=== PATIENT | male | born 1975 | race African-American/Black ===

== ENCOUNTER 2017-12-20 16:11 | Emergency (ER) | payer OTHER ==
[2017-12-20 16:24] VITALS: RESP 18
[2017-12-20] MEDS ORDERED: SODIUM CHLORIDE 0.9% 1,000 ML IV STA (16:32)
--- NOTE | 2017-12-20 16:41 | ED ---
Syncope HPI - General Chief Complaint: Syncope Stated Complaint: Syncope Time Seen by Provider: 12/20/17 16:28 Source: patient Mode of arrival: ambulatory Limitations: no limitations - History of Present Illness Initial Comments: 42-year-old male patient presented to emergency department today for evaluation after experiencing a syncopal episode at home. Patient states that last evening he was doing cocaine and marijuana which is not unusual for him. He states that he passed out and fell down. His friends were unable to wake him for approximately 2 hours. Patient states that today he has been feeling dizzy with standing. He states that he passed out again today for 1-2 minutes. Patient states he is having intermittent left-sided chest pressure. Patient states that he has been dizzy and seeing spots. He states that he has also had sweats with this. Patient is also reporting left wrist pain from the fall last evening and complaining of bilateral hand numbness and tingling. He denies any headache, blurred vision, double vision, nausea, vomiting, abdominal pain, constipation, diarrhea, difficulties with urination. - Related Data Previous Rx's Medication Instructions Recorded Methocarbamol [Robaxin] 1,000 mg PO TID PRN #15 tab 08/03/16 Naproxen 500 mg PO Q12HR #30 tab 08/03/16 Allergies Allergy/AdvReac Type Severity Reaction Status Date / Time No Known Allergies Allergy Verified 08/03/16 03:07 Review of Systems ROS Statement: Those systems with pertinent positive or pertinent negative responses have been documented in the HPI. ROS Other: All systems not noted in ROS Statement are negative. Past Medical History Past Medical History: No Reported History Additional Past Medical History / Comment(s): Tubes in ears as a child History of Any Multi-Drug Resistant Organisms: None Reported Past Surgical History: Ear Surgery Additional Past Surgical History / Comment(s): Tubes in bilat ears as a child Past Psychological History: No Psychological Hx Reported Smoking Status: Current every day smoker Past Alcohol Use History: Occasional Past Drug Use History: Cocaine, Marijuana General Exam Limitations: no limitations General appearance: alert, in no apparent distress, other (This is a well- developed, well-nourished adult male patient in no acute distress. Vital signs upon presentation are temperature 97.9F, pulse 67, respirations 18, blood pressure 121/66, pulse ox 100% on room air.) Eye exam: Present: normal appearance, PERRL, EOMI. Absent: scleral icterus, conjunctival injection, periorbital swelling ENT exam: Present: normal exam, normal oropharynx, mucous membranes moist Neck exam: Present: normal inspection, full ROM, other (Nontender, no step-off, no deformity to firm midline palpation of the posterior cervical spine. Full range of motion without pain or limitation.). Absent: tenderness, meningismus, lymphadenopathy Respiratory exam: Present: normal lung sounds bilaterally. Absent: respiratory distress, wheezes, rales, rhonchi, stridor Cardiovascular Exam: Present: regular rate, normal rhythm, normal heart sounds. Absent: systolic murmur, diastolic murmur, rubs, gallop, clicks GI/Abdominal exam: Present: soft, normal bowel sounds. Absent: distended, tenderness, guarding, rebound, rigid Extremities exam: Present: normal inspection, full ROM, tenderness (Patient is exhibiting tenderness over the dorsal aspect of the left wrist, there is no anatomical snuffbox tenderness.), normal capillary refill, other (Skin is otherwise pink, warm, and dry. Cap refills less than 3 seconds. Radial pulses are 2+ and equal bilaterally.). Absent: pedal edema, joint swelling, calf tenderness Neurological exam: Present: alert, oriented X3, CN II-XII intact, other ( Strength in all 4 extremities is 5/5.) Psychiatric exam: Present: normal affect, normal mood Skin exam: Present: warm, dry, intact, normal color. Absent: rash Course Vital Signs 12/20/17 12/20/17 12/20/17 16:21 17:10 18:40 Temperature 97.9 F 98.0 F Pulse Rate 67 61 58 L Respiratory 18 18 18 Rate Blood Pressure 121/66 117/71 118/66 O2 Sat by Pulse 100 99 100 Oximetry EKG Findings - EKG Comments: EKG Findings:: EKG obtained at 1648 shows sinus bradycardia with left axis deviation, incomplete right bundle branch block. Ventricular rate is 59, LA interval 166, QRS duration 118, QTC 416, QTC 411. Medical Decision Making - Medical Decision Making 42-year-old male patient presented to the emergency department today for evaluation of syncope 2, he also reported mild left-sided chest pressure and dizziness upon standing. Physical examination was unremarkable. Labs reviewed and did reveal mild hypoglycemia at 62. EKG was obtained and showed sinus bradycardia with left axis deviation and incomplete right bundle branch block. Drug screen was positive for cocaine, oxycodone, and marijuana. Chest x-ray showed no acute cardiopulmonary process. X-ray of the left hand showed no acute fractures or dislocations. Discussed the possibility of an occult fracture, suggested follow-up x-ray in 7-10 days if pain symptoms persist. I did discuss findings with the patient. After receiving IV fluids and drinking juice he is feeling somewhat better. Did discuss drug use vs Hypoglycemia vs dehydration as possible causes for his symptoms. Did discuss return parameters in detail. Discussed follow up with cardiology for EKG changes and chest discomfort. He verbalized understanding and agreed with this plan. - Lab Data Result diagrams: 12/20/17 17:00 12/20/17 17:00 Lab Results 12/20/17 12/20/17 12/20/17 Range/Units 16:55 17:00 17:00 WBC 9.8 (3.8-10.6) k/uL RBC 4.76 (4.30-5.90) m/uL Hgb 14.4 (13.0-17.5) gm/dL Hct 43.7 (39.0-53.0) % MCV 91.7 (80.0-100.0) fL MCH 30.1 (25.0-35.0) pg MCHC 32.9 (31.0-37.0) g/dL RDW 12.7 (11.5-15.5) % Plt Count 353 (150-450) k/uL Neutrophils % 72 % Lymphocytes % 17 % Monocytes % 6 % Eosinophils % 3 % Basophils % 0 % Neutrophils # 7.1 (1.3-7.7) k/uL Lymphocytes # 1.7 (1.0-4.8) k/uL Monocytes # 0.6 (0-1.0) k/uL Eosinophils # 0.3 (0-0.7) k/uL Basophils # 0.0 (0-0.2) k/uL PT (9.0-12.0) sec INR (<1.2) APTT (22.0-30.0) sec Sodium (137-145) mmol/L Potassium (3.5-5.1) mmol/L Chloride (98-107) mmol/L Carbon Dioxide (22-30) mmol/L Anion Gap mmol/L BUN (9-20) mg/dL Creatinine (0.66-1.25) mg/dL Est GFR (CKD-EPI)AfAm (>60 ml/min/1.73 sqM) Est GFR (CKD-EPI)NonAf (>60 ml/min/1.73 sqM) Glucose (74-99) mg/dL POC Glucose (mg/dL) 72 L (75-99) mg/dL POC Glu Bar Tacker ID Carlos Ceja Calcium (8.4-10.2) mg/dL Total Bilirubin (0.2-1.3) mg/dL AST (17-59) U/L ALT (21-72) U/L Alkaline Phosphatase (38-126) U/L Total Creatine Kinase 137 (55-170) U/L CK-MB (CK-2) 0.5 (0.0-2.4) ng/mL CK-MB (CK-2) Rel Index 0.4 Troponin I <0.012 (0.000-0.034) ng/mL Total Protein (6.3-8.2) g/dL Albumin (3.5-5.0) g/dL Urine Color Urine Appearance (Clear) Urine pH (5.0-8.0) Ur Specific [place] (1.001-1.035) Urine Protein (Negative) Urine Glucose (UA) (Negative) Urine Ketones (Negative) Urine Blood (Negative) Urine Nitrite (Negative) Urine Bilirubin (Negative) Urine Urobilinogen (<2.0) mg/dL Ur Leukocyte Esterase (Negative) Urine Opiates Screen (NotDetected) Ur Oxycodone Screen (NotDetected) Urine Methadone Screen (NotDetected) Ur Propoxyphene Screen (NotDetected) Ur Barbiturates Screen (NotDetected) U Tricyclic Antidepress (NotDetected) Ur Phencyclidine Scrn (NotDetected) Ur Amphetamines Screen (NotDetected) U Methamphetamines Scrn (NotDetected) U Benzodiazepines Scrn (NotDetected) Urine Cocaine Screen (NotDetected) U Marijuana (THC) Screen (NotDetected) 12/20/17 12/20/17 12/20/17 Range/Units 17:00 17:00 17:58 WBC (3.8-10.6) k/uL RBC (4.30-5.90) m/uL Hgb (13.0-17.5) gm/dL Hct (39.0-53.0) % MCV (80.0-100.0) fL MCH (25.0-35.0) pg MCHC (31.0-37.0) g/dL RDW (11.5-15.5) % Plt Count (150-450) k/uL Neutrophils % % Lymphocytes % % Monocytes % % Eosinophils % % Basophils % % Neutrophils # (1.3-7.7) k/uL Lymphocytes # (1.0-4.8) k/uL Monocytes # (0-1.0) k/uL Eosinophils # (0-0.7) k/uL Basophils # (0-0.2) k/uL PT 10.0 (9.0-12.0) sec INR 1.0 (<1.2) APTT 25.6 (22.0-30.0) sec Sodium 141 (137-145) mmol/L Potassium 4.0 (3.5-5.1) mmol/L Chloride 103 (98-107) mmol/L Carbon Dioxide 25 (22-30) mmol/L Anion Gap 13 mmol/L BUN 19 (9-20) mg/dL Creatinine 0.80 (0.66-1.25) mg/dL Est GFR (CKD-EPI)AfAm >90 (>60 ml/min/1.73 sqM) Est GFR (CKD-EPI)NonAf >90 (>60 ml/min/1.73 sqM) Glucose 67 L (74-99) mg/dL POC Glucose (mg/dL) (75-99) mg/dL POC Glu Bar Tacker ID Calcium 9.8 (8.4-10.2) mg/dL Total Bilirubin 0.8 (0.2-1.3) mg/dL AST 18 (17-59) U/L ALT 17 L (21-72) U/L Alkaline Phosphatase 85 (38-126) U/L Total Creatine Kinase (55-170) U/L CK-MB (CK-2) (0.0-2.4) ng/mL CK-MB (CK-2) Rel Index Troponin I (0.000-0.034) ng/mL Total Protein 7.4 (6.3-8.2) g/dL Albumin 4.4 (3.5-5.0) g/dL Urine Color Yellow Urine Appearance Clear (Clear) Urine pH 7.0 (5.0-8.0) Ur Specific [place] 1.014 (1.001-1.035) Urine Protein Negative (Negative) Urine Glucose (UA) Negative (Negative) Urine Ketones 3+ H (Negative) Urine Blood Negative (Negative) Urine Nitrite Negative (Negative) Urine Bilirubin Negative (Negative) Urine Urobilinogen <2.0 (<2.0) mg/dL Ur Leukocyte Esterase Negative (Negative) Urine Opiates Screen Not Detected (NotDetected) Ur Oxycodone Screen Detected H (NotDetected) Urine Methadone Screen Not Detected (NotDetected) Ur Propoxyphene Screen Not Detected (NotDetected) Ur Barbiturates Screen Not Detected (NotDetected) U Tricyclic Antidepress Not Detected (NotDetected) Ur Phencyclidine Scrn Not Detected (NotDetected) Ur Amphetamines Screen Not Detected (NotDetected) U Methamphetamines Scrn Not Detected (NotDetected) U Benzodiazepines Scrn Not Detected (NotDetected) Urine Cocaine Screen Detected H (NotDetected) U Marijuana (THC) Screen Detected H (NotDetected) Disposition Clinical Impression: Right bundle branch block, Syncope, Hypoglycemia Disposition: HOME SELF-CARE Condition: Good Instructions: Syncope (ED), Cocaine Abuse (ED), Non-diabetic Hypoglycemia (ED) Additional Instructions: Increase fluids. Follow-up with your primary care physician as well as integration analyst for further evaluation of EKG changes. Follow-up through primary care physician for recheck in 1-2 days. Return here immediately for any new, worsening, or concerning symptoms. Is patient prescribed a controlled substance at d/c from ED?: No Referrals: None,Stated [Primary Care Provider] - 1-2 days [facility] [Provider Group] - 1-2 days Time of Disposition: 18:39
[2017-12-20 16:57] LABS: Glucose,Whole Blood 72 mg/dL (75-99)
[2017-12-20 17:19] LABS: Basophils % (A) 0 %; Eosinophils # (A) 0.3 k/uL (0-0.7); Eosinophils % (A) 3 %; HCT 43.7 % (39.0-53.0); HGB 14.4 gm/dL (13.0-17.5); Lymphocytes # (A) 1.7 k/uL (1.0-4.8); Lymphocytes % (A) 17 %; MCH 30.1 pg (25.0-35.0); MCHC 32.9 g/dL (31.0-37.0); MCV 91.7 fL (80.0-100.0); Mean Platelet Volume 6.8; Monocytes # (A) 0.6 k/uL (0-1.0); Monocytes % (A) 6 %; Neutrophils # (A) 7.1 k/uL (1.3-7.7); Neutrophils % (A) 72 %; Platelet Count 353 k/uL (150-450); RBC 4.76 m/uL (4.30-5.90); RDW 12.7 % (11.5-15.5); WBC 9.8 k/uL (3.8-10.6)
[2017-12-20 17:28] LABS: ALT 17 U/L (21-72); AST 18 U/L (17-59); Albumin 4.4 g/dL (3.5-5.0); Alkaline Phosphatase 85 U/L (38-126); Anion Gap 13 mmol/L; Blood Urea Nitrogen 19 mg/dL (9-20); Calcium 9.8 mg/dL (8.4-10.2); Carbon Dioxide 25 mmol/L (22-30); Chloride 103 mmol/L (98-107); Glucose 67 mg/dL (74-99); Sodium 141 mmol/L (137-145); Total Bilirubin 0.8 mg/dL (0.2-1.3); Total Protein 7.4 g/dL (6.3-8.2)
[2017-12-20 17:30] LABS: Partial Thromboplastin Time 25.6 sec (22.0-30.0)
[2017-12-20 17:32] LABS: Creatine Kinase 137 U/L (55-170)
--- NOTE | 2017-12-20 17:34 | XR ---
EXAMINATION TYPE: XR chest 2V DATE OF EXAM: 12/20/2017 COMPARISON: 08/03/2016 HISTORY: 42-year-old male with syncope and fall TECHNIQUE: PA and lateral views FINDINGS: The cardiomediastinal silhouette, aorta, and pulmonary vasculature are within normal limits. There is a small pulmonary nodule at the left midlung, suspected to represent a nipple shadow when correlatin g with the lateral view. Three-month follow-up exam recommended utilizing nipple markers as a precaut ionary measure. Otherwise, lungs and pleural spaces are clear. IMPRESSION: 1. No acute cardiopulmonary process. 2. Suspected nipple shadow at the left mid lung rather than pulmonary nodule. Three-month follow-up r ecommended utilizing nipple markers as a precautionary measure.
--- NOTE | 2017-12-20 17:36 | XR ---
EXAMINATION TYPE: XR wrist complete LT DATE OF EXAM: 12/20/2017 COMPARISON: NONE HISTORY: 42-year-old male with pain after fall TECHNIQUE: 4 views FINDINGS: The radiocarpal and distal radioulnar joints as well as the midcarpal compartment appear intact. No a cute fracture, subluxation, or dislocation seen. IMPRESSION: No acute osseous abnormality seen.
[2017-12-20 17:45] LABS: Creatine Kinase MB 0.5 ng/mL (0.0-2.4); Troponin I <0.012 ng/mL (0.000-0.034)
[2017-12-20 18:05] LABS: Appearance,Urine Clear (Clear); Bilirubin,Urine Negative (Negative); Blood,Urine Negative (Negative); Color,Urine Yellow; Glucose,Urine (UA) Negative (Negative); Ketones,Urine 3+ (Negative); Leukocyte Esterase,Urine Negative (Negative); Nitrite,Urine Negative (Negative); Protein,Urine Negative (Negative); Specific Gravity,Urine 1.014 (1.001-1.035); Urobilinogen,Urine <2.0 mg/dL (<2.0)
[2017-12-20 18:15] LABS: Amphetamine Screen,Urine Not Detected (NotDetected); Barbiturate Screen,Urine Not Detected (NotDetected); Benzodiazepines Screen,Urine Not Detected (NotDetected); Cocaine Screen,Urine Detected (NotDetected); Methadone Screen, Urine Not Detected (NotDetected); Opiate Screen,Urine Not Detected (NotDetected); Oxycodone Screen, Urine Detected (NotDetected); Phencyclidine Screen,Urine Not Detected (NotDetected); Tricyclic Antidepressant,Urine Not Detected (NotDetected); Urn Cannabinoid Scrn Detected (NotDetected)
[2017-12-20 18:41] VITALS: BP 118/66; PULSE 58; TEMP 98
== END 2017-12-20 18:55 | disposition home or self-care (01) ==
LOC: EC 16:11
DX: I45.10 Unspecified right bundle-branch block (principal); R55 Syncope and collapse; E16.2 Hypoglycemia, unspecified; F17.200 Nicotine dependence, unspecified, uncomplicated
CPT/HCPCS: 36415; 71046; 80053; 80306; 81003; 82550; 82553; 84484; 85025; 85610; 85730; 93005; 96360; 99284

== ENCOUNTER 2018-03-21 17:03 | Emergency (ER) | payer OTHER ==
[2018-03-21 17:07] VITALS: BP 114/75; PULSE 94; RESP 20; TEMP 98.6
--- NOTE | 2018-03-21 17:21 | ED ---
General Adult HPI - General Chief complaint: Skin/Abscess/Foreign Body Stated complaint: Bumps on Hands Time Seen by Provider: 03/21/18 17:14 Source: patient Mode of arrival: ambulatory Limitations: no limitations - History of Present Illness Initial comments: This is a 42yo male with no PMH who presents today for CC of "my boss made me come in because she thought I had bumps on my hands". 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 Pt denies bumps on his hands, and only presents to the ER today so he can get a note clearing him to return back to work tonnight. Pt has no complaints. VS stable upon presentation. Patient denies any recent rash, STD, mouth lesions, itching, fever , chills, shortness of breath, chest pain, back pain, abdominal pain, nausea or vomiting, numbness or tingling, dysuria or hematuria, constipation or diarrhea, headaches or visual changes, or any other complaints. - Related Data Previous Rx's Medication Instructions Recorded Methocarbamol [Robaxin] 1,000 mg PO TID PRN #15 tab 08/03/16 Naproxen 500 mg PO Q12HR #30 tab 08/03/16 Allergies Allergy/AdvReac Type Severity Reaction Status Date / Time No Known Allergies Allergy Verified 03/21/18 17:07 Review of Systems ROS Statement: Those systems with pertinent positive or pertinent negative responses have been documented in the HPI. ROS Other: All systems not noted in ROS Statement are negative. Constitutional: Denies: fever, chills Eyes: Denies: eye pain ENT: Denies: ear pain Respiratory: Denies: cough, dyspnea Cardiovascular: Denies: chest pain, palpitations Gastrointestinal: Denies: abdominal pain, nausea, vomiting, diarrhea, constipation Genitourinary: Denies: urgency, dysuria, frequency, hematuria Musculoskeletal: Denies: back pain Skin: Reports: as per HPI. Denies: rash, lesions Neurological: Denies: headache, weakness, numbness, paresthesias, confusion Past Medical History Past Medical History: No Reported History Additional Past Medical History / Comment(s): Tubes in ears as a child History of Any Multi-Drug Resistant Organisms: None Reported Past Surgical History: Ear Surgery Additional Past Surgical History / Comment(s): Tubes in bilat ears as a child Past Psychological History: No Psychological Hx Reported Smoking Status: Current every day smoker Past Alcohol Use History: Occasional Past Drug Use History: Cocaine, Marijuana General Exam - General Exam Comments Initial Comments: General: The patient is awake and alert, in no distress, and does not appear acutely ill. Eye: Pupils are equal, round and reactive to light, extra-ocular movements are intact. No nystagmus. There is normal conjunctiva bilaterally. No signs of icterus. Ears, nose, mouth and throat: There are moist mucous membranes and no oral lesions. Neck: The neck is supple, there is no tenderness or JVD. Cardiovascular: There is a regular rate and rhythm. No murmur, rub or gallop is appreciated. Respiratory: Lungs are clear to auscultation, respirations are non-labored, breath sounds are equal. No wheezes, stridor, rales, or rhonchi. Neurological: A&O x 3. CN II-XII intact, There are no obvious motor or sensory deficits. Coordination appears grossly intact. Speech is normal. Skin: Skin is warm and dry and no rashes or lesions are noted. Some areas of dry skin on hands b/l. No linear burrows or erythema or other lesions noted. No lesions on hands feet or oral mucosa. Psychiatric: Cooperative, appropriate mood & affect, normal judgment. Limitations: no limitations Course Vital Signs 03/21/18 17:05 Temperature 98.6 F Pulse Rate 94 Respiratory 20 Rate Blood Pressure 114/75 O2 Sat by Pulse 98 Oximetry Medical Decision Making - Medical Decision Making 42 yo male sent by work for clearance by work for "bumps on hands" pt does not note any bumps. Exam reveals dry skin. Given no hx of itching or and vesicular/ burrowing lesions on hands or in the webs of fingers I do not feel this is scabies. 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 Pt was give a clearance note for work and case was discussed with Dr. Monge. Pt was discharged in stable condition Disposition Clinical Impression: Dry skin Disposition: HOME SELF-CARE Condition: Good Additional Instructions: Please return to emergency room if the symptoms increase or worsen or for any other concerns. Is patient prescribed a controlled substance at d/c from ED?: No Referrals: None,Stated [Primary Care Provider] - 1-2 days Time of Disposition: 17:21
== END 2018-03-21 18:18 | disposition home or self-care (01) ==
LOC: EC 17:03
DX: L85.3 Xerosis cutis (principal); F17.200 Nicotine dependence, unspecified, uncomplicated
CPT/HCPCS: 99283

== ENCOUNTER 2018-08-26 10:56 | Emergency (ER) | payer OTHER ==
[2018-08-26 11:05] VITALS: RESP 18
[2018-08-26] MEDS ORDERED: SODIUM CHLORIDE 0.9% 1,000 ML IV STA (11:22)
--- NOTE | 2018-08-26 11:38 | ED ---
General Adult HPI - General Chief complaint: Chest Pain Stated complaint: FLU LIKE SYMPTOMS Time Seen by Provider: 08/26/18 11:16 Source: patient, RN notes reviewed Mode of arrival: ambulatory Limitations: no limitations - History of Present Illness Initial comments: Patient 43-year-old male presenting to the emergency room today with a chief complaint of cough congestion over the last 4 days. He does admit that he went back to work today and he was working he felt a little dizzy. He states is also spots in his vision. States his hands went numb. He did sit down again feeling better. Got back up to try to work again still had the numbness in his hands and felt dizzy so decided to come here to the emergency room. He does admit that he's had cough congestion for the last 4 days had some sputum production as been yellow in color. Patient admits to pain in his chest with cough. No pain at rest. Patient does admit to feeling chills and feeling hot and cold. He denies any other complaints. Patient denies any recent shortness of breath, chest pain, back pain, numbness or tingling, headaches or visual changes, or any other complaints. - Related Data Home Medications Medication Instructions Recorded Confirmed Ibuprofen [Motrin Ib] 600 mg PO Q6H PRN 08/26/18 08/26/18 guaiFENesin [Mucinex] 600 mg PO DAILY 08/26/18 08/26/18 Allergies Allergy/AdvReac Type Severity Reaction Status Date / Time No Known Allergies Allergy Verified 08/26/18 11:14 Review of Systems ROS Statement: Those systems with pertinent positive or pertinent negative responses have been documented in the HPI. ROS Other: All systems not noted in ROS Statement are negative. Past Medical History Past Medical History: No Reported History Additional Past Medical History / Comment(s): Tubes in ears as a child History of Any Multi-Drug Resistant Organisms: None Reported Past Surgical History: Ear Surgery Additional Past Surgical History / Comment(s): Tubes in bilat ears as a child Past Psychological History: No Psychological Hx Reported Smoking Status: Current every day smoker Past Alcohol Use History: Occasional Past Drug Use History: Cocaine, Marijuana General Exam - General Exam Comments Initial Comments: General: The patient is awake and alert, in no distress, and does not appear acutely ill. Eye: Pupils are equal, round and reactive to light, extra-ocular movements are intact. No nystagmus. There is normal conjunctiva bilaterally. No signs of icterus. Ears, nose, mouth and throat: There are moist mucous membranes and no oral lesions. Neck: The neck is supple, there is no tenderness or JVD. Cardiovascular: There is a regular rate and rhythm. No murmur, rub or gallop is appreciated. Respiratory: Lungs are clear to auscultation, respirations are non-labored, breath sounds are equal. No wheezes, stridor, rales, or rhonchi. Gastrointestinal: Soft nontender. Musculoskeletal: Normal ROM, no tenderness. Strength 5/5. Sensation intact. Radial pulses equal bilaterally 2+. Neurological: A&O x 3. CN II-XII intact, There are no obvious motor or sensory deficits. Coordination appears grossly intact. Speech is normal. Skin: Skin is warm and dry and no rashes or lesions are noted. Psychiatric: Cooperative, appropriate mood & affect, normal judgment. Limitations: no limitations Course Vital Signs 08/26/18 08/26/18 11:02 12:13 Temperature 97.8 F Pulse Rate 66 Pulse Rate [ 84 Supine Apical] Respiratory 18 Rate Blood Pressure 116/76 O2 Sat by Pulse 98 Oximetry EKG Findings - EKG Comments: EKG Findings:: EKG performed at 1145: Shows sinus bradycardia at 51 bpm. AR interval 162. QRS 114. QT/QTc 420/387. No acute ST change. Medical Decision Making - Medical Decision Making Patient reexamined at this time shows no signs of distress. He was given a bolus in the emergency room states he is feeling better. He has had cough congestion for the past 4 days. He was at work and he felt a little lightheaded and has some numbness and tingling into the hands bilaterally. Patient when he sat down states that he felt better but that happen once again. Patient's been a symptomatically in the emergency room and is feeling better. His chest x-rays negative for any sign of pneumonia or any other acute abnormality. Patient's labs been reviewed unremarkable. Patient will be discharged home advised to increase his oral fluids. Advised to use Tylenol/ ibuprofen for body aches. Was discussed about influenza versus other viral upper respiratory infection. Advised follow-up family doctor return if symptoms increase or worsen. - Lab Data Result diagrams: 08/26/18 12:10 08/26/18 12:10 Lab Results 08/26/18 08/26/18 08/26/18 Range/Units 12:10 12:10 12:10 WBC 8.4 (3.8-10.6) k/uL RBC 4.51 (4.30-5.90) m/uL Hgb 14.0 (13.0-17.5) gm/dL Hct 41.9 (39.0-53.0) % MCV 93.0 (80.0-100.0) fL MCH 31.0 (25.0-35.0) pg MCHC 33.3 (31.0-37.0) g/dL RDW 12.9 (11.5-15.5) % Plt Count 291 (150-450) k/uL Neutrophils % 73 % Lymphocytes % 16 % Monocytes % 7 % Eosinophils % 1 % Basophils % 0 % Neutrophils # 6.1 (1.3-7.7) k/uL Lymphocytes # 1.4 (1.0-4.8) k/uL Monocytes # 0.5 (0-1.0) k/uL Eosinophils # 0.1 (0-0.7) k/uL Basophils # 0.0 (0-0.2) k/uL PT (9.0-12.0) sec INR (<1.2) APTT (22.0-30.0) sec Sodium 139 (137-145) mmol/L Potassium 4.4 (3.5-5.1) mmol/L Chloride 107 (98-107) mmol/L Carbon Dioxide 27 (22-30) mmol/L Anion Gap 5 mmol/L BUN 20 (9-20) mg/dL Creatinine 0.84 (0.66-1.25) mg/dL Est GFR (CKD-EPI)AfAm >90 (>60 ml/min/1.73 sqM) Est GFR (CKD-EPI)NonAf >90 (>60 ml/min/1.73 sqM) Glucose 104 H (74-99) mg/dL Calcium 9.4 (8.4-10.2) mg/dL Total Bilirubin 0.3 (0.2-1.3) mg/dL AST 18 (17-59) U/L ALT 25 (21-72) U/L Alkaline Phosphatase 93 (38-126) U/L Total Creatine Kinase 65 (55-170) U/L CK-MB (CK-2) <0.2 (0.0-2.4) ng/mL CK-MB (CK-2) Rel Index Troponin I <0.012 (0.000-0.034) ng/mL Total Protein 7.4 (6.3-8.2) g/dL Albumin 4.0 (3.5-5.0) g/dL 08/26/18 Range/Units 12:10 WBC (3.8-10.6) k/uL RBC (4.30-5.90) m/uL Hgb (13.0-17.5) gm/dL Hct (39.0-53.0) % MCV (80.0-100.0) fL MCH (25.0-35.0) pg MCHC (31.0-37.0) g/dL RDW (11.5-15.5) % Plt Count (150-450) k/uL Neutrophils % % Lymphocytes % % Monocytes % % Eosinophils % % Basophils % % Neutrophils # (1.3-7.7) k/uL Lymphocytes # (1.0-4.8) k/uL Monocytes # (0-1.0) k/uL Eosinophils # (0-0.7) k/uL Basophils # (0-0.2) k/uL PT 9.5 (9.0-12.0) sec INR 0.9 (<1.2) APTT 26.3 (22.0-30.0) sec Sodium (137-145) mmol/L Potassium (3.5-5.1) mmol/L Chloride (98-107) mmol/L Carbon Dioxide (22-30) mmol/L Anion Gap mmol/L BUN (9-20) mg/dL Creatinine (0.66-1.25) mg/dL Est GFR (CKD-EPI)AfAm (>60 ml/min/1.73 sqM) Est GFR (CKD-EPI)NonAf (>60 ml/min/1.73 sqM) Glucose (74-99) mg/dL Calcium (8.4-10.2) mg/dL Total Bilirubin (0.2-1.3) mg/dL AST (17-59) U/L ALT (21-72) U/L Alkaline Phosphatase (38-126) U/L Total Creatine Kinase (55-170) U/L CK-MB (CK-2) (0.0-2.4) ng/mL CK-MB (CK-2) Rel Index Troponin I (0.000-0.034) ng/mL Total Protein (6.3-8.2) g/dL Albumin (3.5-5.0) g/dL Disposition Clinical Impression: Upper respiratory infection, Dizziness Disposition: HOME SELF-CARE Condition: Good Instructions: Dizziness (ED) Additional Instructions: Please use medication as discussed. Please follow-up with family doctor in the next 2 days of symptoms have not improved. Please return to emergency room if the symptoms increase or worsen or for any other concerns. Is patient prescribed a controlled substance at d/c from ED?: No Referrals: None,Stated [Primary Care Provider] - 1-2 days Time of Disposition: 13:39
--- NOTE | 2018-08-26 12:24 | XR ---
EXAMINATION TYPE: XR chest 2V DATE OF EXAM: 08/26/2018 COMPARISON: 12/20/2017 HISTORY: 43-year-old male with cough TECHNIQUE: PA and lateral views FINDINGS: Heart normal size. Aorta and pulmonary vasculature within normal limits. No consolidation or pleural effusion seen. Previously seen left midlung nodularity no longer appreciated. IMPRESSION: No acute cardiopulmonary process.
[2018-08-26 12:33] LABS: Basophils % (A) 0 %; Eosinophils # (A) 0.1 k/uL (0-0.7); Eosinophils % (A) 1 %; HCT 41.9 % (39.0-53.0); Lymphocytes # (A) 1.4 k/uL (1.0-4.8); Lymphocytes % (A) 16 %; MCHC 33.3 g/dL (31.0-37.0); Mean Platelet Volume 6.4; Monocytes # (A) 0.5 k/uL (0-1.0); Monocytes % (A) 7 %; Neutrophils # (A) 6.1 k/uL (1.3-7.7); Neutrophils % (A) 73 %; Platelet Count 291 k/uL (150-450); RBC 4.51 m/uL (4.30-5.90); RDW 12.9 % (11.5-15.5); WBC 8.4 k/uL (3.8-10.6)
[2018-08-26 12:35] LABS: ALT 25 U/L (21-72); AST 18 U/L (17-59); Alkaline Phosphatase 93 U/L (38-126); Anion Gap 5 mmol/L; Blood Urea Nitrogen 20 mg/dL (9-20); Calcium 9.4 mg/dL (8.4-10.2); Carbon Dioxide 27 mmol/L (22-30); Chloride 107 mmol/L (98-107); Glucose 104 mg/dL (74-99); Potassium 4.4 mmol/L (3.5-5.1); Sodium 139 mmol/L (137-145); Total Bilirubin 0.3 mg/dL (0.2-1.3); Total Protein 7.4 g/dL (6.3-8.2)
[2018-08-26 12:39] LABS: INR 0.9 (<1.2); Partial Thromboplastin Time 26.3 sec (22.0-30.0); Prothrombin Time 9.5 sec (9.0-12.0)
[2018-08-26 12:45] LABS: Creatine Kinase 65 U/L (55-170)
[2018-08-26 12:58] LABS: Creatine Kinase MB <0.2 ng/mL (0.0-2.4); Troponin I <0.012 ng/mL (0.000-0.034)
[2018-08-26 14:02] VITALS: BP 124/87; PULSE 67; TEMP 97.1
== END 2018-08-26 13:59 | disposition home or self-care (01) ==
LOC: EC 10:56
DX: J06.9 Acute upper respiratory infection, unspecified (principal); R42 Dizziness and giddiness; R20.0 Anesthesia of skin; F17.200 Nicotine dependence, unspecified, uncomplicated; Z79.899 Other long term (current) drug therapy
CPT/HCPCS: 36415; 71046; 80053; 82550; 82553; 84484; 85025; 85610; 85730; 93005; 96360; 96361; 99285

== ENCOUNTER 2018-11-17 10:20 | Emergency (ER) | payer OTHER ==
[2018-11-17 10:24] VITALS: RESP 16
[2018-11-17] MEDS ORDERED: KETOROLAC 30 MG/ML 1 ML VIAL IVP STA (10:27)
[2018-11-17] MEDS ORDERED: ONDANSETRON 4 MG/2 ML VIAL IVP STA (10:27)
[2018-11-17] MEDS ORDERED: SODIUM CHLORIDE 0.9% 1,000 ML IV STA ×2 (10:27)
[2018-11-17] MEDS ORDERED: MORPHINE SULFATE 4 MG/ML SYRINGE IVP STA (10:33)
--- NOTE | 2018-11-17 10:37 | ED ---
General Adult HPI - General Chief complaint: Urogenital Stated complaint: Back pain/blood in urine Time Seen by Provider: 11/17/18 10:26 Source: patient, RN notes reviewed, old records reviewed Mode of arrival: ambulatory Limitations: no limitations - History of Present Illness Initial comments: this Patient is a 43-year-old male who presents emergency Department today with complaints of right-sided flank and lower back pain for the past 3 days. Maranda ent reports that today he noticed he started to urinate dark red blood. He reports it's painful and it seems difficult for him to urinate. Patient states that he has had no fevers or chills. He denies any chest pain shortness of breath, nausea or vomiting. He states he's had normal stools. - Related Data Previous Rx's Medication Instructions Recorded Cyclobenzaprine [Flexeril] 10 mg PO TID #15 tab 11/17/18 Ibuprofen [Motrin] 600 mg PO Q6HR PRN #20 tab 11/17/18 Allergies Allergy/AdvReac Type Severity Reaction Status Date / Time No Known Allergies Allergy Verified 11/17/18 10:41 Review of Systems ROS Statement: Those systems with pertinent positive or pertinent negative responses have been documented in the HPI. ROS Other: All systems not noted in ROS Statement are negative. Past Medical History Past Medical History: No Reported History Additional Past Medical History / Comment(s): Tubes in ears as a child History of Any Multi-Drug Resistant Organisms: None Reported Past Surgical History: Ear Surgery Additional Past Surgical History / Comment(s): Tubes in bilat ears as a child Past Psychological History: No Psychological Hx Reported Smoking Status: Current every day smoker Past Alcohol Use History: Occasional Past Drug Use History: Marijuana General Exam - General Exam Comments Initial Comments: 43-year-old male. Alert and oriented. No distress. General: Well appearing, well nourished, in no distress. Oriented x 3, normal mood and affect . Ambulating without difficulty. Skin: Good turgor, no rash, unusual bruising or prominent lesions Hair: Normal texture and distribution. HEENT: Head: Normocephalic, atraumatic, no visible or palpable masses, depressions, or scaring. Eyes: Visual acuity intact, conjunctiva clear, sclera non-icteric, EOM intact, PERRL. Ears: EACs clear, TMs translucent & cone of light visualized. hearing intact. Nose: No external lesions, mucosa non-inflamed, septum and turbinates normal Mouth: dry mucous membranes. Teeth/Gums: No obvious caries or periodontal disease. No gingival inflammation or significant resorption. Pharynx: Mucosa non-inflamed, no tonsillar hypertrophy or exudate Neck: Supple, without lesions, bruits, or adenopathy, thyroid non-enlarged and non-tender Heart: No cardiomegaly or thrills; regular rate and rhythm, no murmur or gallop Lungs: Clear to auscultation and percussion Abdomen: Bowel sounds normal, no tenderness, organomegaly, masses, or hernia Back: Spine normal without deformity or tenderness, right CVA tenderness Extremities: No amputations or deformities, cyanosis, edema or varicosities, peripheral pulses intact Musculoskeletal: Normal gait and station. No misalignment, asymmetry, crepitation, defects, tenderness, masses, effusions, decreased range of motion, instability, atrophy or abnormal strength or tone in the head, neck, spine, ribs, pelvis or extremities. Neurologic: CN 2-12 normal. Sensation to pain, touch, and proprioception normal. DTRs normal in upper and lower extremities. No pathologic reflexes. Psychiatric: Oriented X3, intact recent and remote memory, judgment and insight, normal mood and affect. Limitations: no limitations Course Vital Signs 11/17/18 10:21 Temperature 97.6 F Pulse Rate 76 Respiratory 16 Rate Blood Pressure 105/72 O2 Sat by Pulse 98 Oximetry Medical Decision Making - Medical Decision Making grade 3-year-old male presents emergency department stay 3 days of lower back pain and 1 day of hematuria. Patient was given IV fluids labwork obtained. Patient had some right CVA tenderness on exam. Patient is given IV fluids and pain medication. Patient's labwork was reviewed and unremarkable. Urinalysis is no blood. Patient CT of the abdomen pelvis without contrast was completed. Negative for any acute process. Discusses time he may pass a kidney stone. Patient will be discharged at this time with prescriptions for Motrin Tylenol for pain. Discharged with a short course of muscle relaxers as well for the lower back pain. Discussed the Patient was discussed nature as well. Patient agrees to treatment plan will comply. - Lab Data Result diagrams: 11/17/18 10:57 11/17/18 10:57 Lab Results 11/17/18 11/17/1811/17/19 Range/Units 10:57 10:57 10:57 WBC 7.4 (3.8-10.6) k/uL RBC 4.50 (4.30-5.90) m/uL Hgb 13.9 (13.0-17.5) gm/dL Hct 42.6 (39.0-53.0) % MCV 94.6 (80.0-100.0) fL MCH 30.8 (25.0-35.0) pg MCHC 32.6 (31.0-37.0) g/dL RDW 13.3 (11.5-15.5) % Plt Count 354 (150-450) k/uL Neutrophils % 74 % Lymphocytes % 18 % Monocytes % 5 % Eosinophils % 2 % Basophils % 0 % Neutrophils # 5.5 (1.3-7.7) k/uL Lymphocytes # 1.3 (1.0-4.8) k/uL Monocytes # 0.3 (0-1.0) k/uL Eosinophils # 0.1 (0-0.7) k/uL Basophils # 0.0 (0-0.2) k/uL PT 9.5 (9.0-12.0) sec INR 0.9 (<1.2) APTT 25.0 (22.0-30.0) sec Sodium 138 (137-145) mmol/L Potassium 4.2 (3.5-5.1) mmol/L Chloride 104 (98-107) mmol/L Carbon Dioxide 27 (22-30) mmol/L Anion Gap 7 mmol/L BUN 19 (9-20) mg/dL Creatinine 0.86 (0.66-1.25) mg/dL Est GFR (CKD-EPI)AfAm >90 (>60 ml/min/1.73 sqM) Est GFR (CKD-EPI)NonAf >90 (>60 ml/min/1.73 sqM) Glucose 88 (74-99) mg/dL Calcium 9.8 (8.4-10.2) mg/dL Total Bilirubin 0.5 (0.2-1.3) mg/dL AST 20 (17-59) U/L ALT 23 (21-72) U/L Alkaline Phosphatase 75 (38-126) U/L Total Protein 7.5 (6.3-8.2) g/dL Albumin 4.3 (3.5-5.0) g/dL Amylase 49 (30-110) U/L Lipase 95 (23-300) U/L Urine Color Urine Appearance (Clear) Urine pH (5.0-8.0) Ur Specific [place] (1.001-1.035) Urine Protein (Negative) Urine Glucose (UA) (Negative) Urine Ketones (Negative) Urine Blood (Negative) Urine Nitrite (Negative) Urine Bilirubin (Negative) Urine Urobilinogen (<2.0) mg/dL Ur Leukocyte Esterase (Negative) 11/17/18 Range/Units 11:23 WBC (3.8-10.6) k/uL RBC (4.30-5.90) m/uL Hgb (13.0-17.5) gm/dL Hct (39.0-53.0) % MCV (80.0-100.0) fL MCH (25.0-35.0) pg MCHC (31.0-37.0) g/dL RDW (11.5-15.5) % Plt Count (150-450) k/uL Neutrophils % % Lymphocytes % % Monocytes % % Eosinophils % % Basophils % % Neutrophils # (1.3-7.7) k/uL Lymphocytes # (1.0-4.8) k/uL Monocytes # (0-1.0) k/uL Eosinophils # (0-0.7) k/uL Basophils # (0-0.2) k/uL PT (9.0-12.0) sec INR (<1.2) APTT (22.0-30.0) sec Sodium (137-145) mmol/L Potassium (3.5-5.1) mmol/L Chloride (98-107) mmol/L Carbon Dioxide (22-30) mmol/L Anion Gap mmol/L BUN (9-20) mg/dL Creatinine (0.66-1.25) mg/dL Est GFR (CKD-EPI)AfAm (>60 ml/min/1.73 sqM) Est GFR (CKD-EPI)NonAf (>60 ml/min/1.73 sqM) Glucose (74-99) mg/dL Calcium (8.4-10.2) mg/dL Total Bilirubin (0.2-1.3) mg/dL AST (17-59) U/L ALT (21-72) U/L Alkaline Phosphatase (38-126) U/L Total Protein (6.3-8.2) g/dL Albumin (3.5-5.0) g/dL Amylase (30-110) U/L Lipase (23-300) U/L Urine Color Yellow Urine Appearance Clear (Clear) Urine pH 7.0 (5.0-8.0) Ur Specific [place] 1.012 (1.001-1.035) Urine Protein Negative (Negative) Urine Glucose (UA) Negative (Negative) Urine Ketones Negative (Negative) Urine Blood Negative (Negative) Urine Nitrite Negative (Negative) Urine Bilirubin Negative (Negative) Urine Urobilinogen <2.0 (<2.0) mg/dL Ur Leukocyte Esterase Negative (Negative) - Radiology Data Radiology results: report reviewed CT is negative for any acuteNo acute process to account for patient's symptoms. Disposition Clinical Impression: Lower back pain Disposition: HOME SELF-CARE Condition: Good Instructions (If sedation given, give patient instructions): Low Back Strain (ED) Additional Instructions: Patient advised to close follow-up with primary care provider. Motrin Tylenol for pain. Return to emergency department if any alarming signs or symptoms occur. Prescriptions: Cyclobenzaprine [Flexeril] 10 mg PO TID #15 tab Ibuprofen [Motrin] 600 mg PO Q6HR PRN #20 tab PRN Reason: Pain Is patient prescribed a controlled substance at d/c from ED?: No Referrals: None,Stated [Primary Care Provider] - 1-2 days Time of Disposition: 11:55
[2018-11-17 11:19] LABS: Basophils % (A) 0 %; Eosinophils # (A) 0.1 k/uL (0-0.7); Eosinophils % (A) 2 %; HCT 42.6 % (39.0-53.0); HGB 13.9 gm/dL (13.0-17.5); Lymphocytes # (A) 1.3 k/uL (1.0-4.8); Lymphocytes % (A) 18 %; MCH 30.8 pg (25.0-35.0); MCHC 32.6 g/dL (31.0-37.0); MCV 94.6 fL (80.0-100.0); Mean Platelet Volume 6.9; Monocytes # (A) 0.3 k/uL (0-1.0); Monocytes % (A) 5 %; Neutrophils # (A) 5.5 k/uL (1.3-7.7); Neutrophils % (A) 74 %; Platelet Count 354 k/uL (150-450); RDW 13.3 % (11.5-15.5); WBC 7.4 k/uL (3.8-10.6)
[2018-11-17 11:29] LABS: ALT 23 U/L (21-72); AST 20 U/L (17-59); Albumin 4.3 g/dL (3.5-5.0); Alkaline Phosphatase 75 U/L (38-126); Amylase 49 U/L (30-110); Anion Gap 7 mmol/L; Blood Urea Nitrogen 19 mg/dL (9-20); Calcium 9.8 mg/dL (8.4-10.2); Carbon Dioxide 27 mmol/L (22-30); Chloride 104 mmol/L (98-107); Glucose 88 mg/dL (74-99); Lipase 95 U/L (23-300); Potassium 4.2 mmol/L (3.5-5.1); Sodium 138 mmol/L (137-145); Total Bilirubin 0.5 mg/dL (0.2-1.3); Total Protein 7.5 g/dL (6.3-8.2)
[2018-11-17 11:39] LABS: INR 0.9 (<1.2); Prothrombin Time 9.5 sec (9.0-12.0)
--- NOTE | 2018-11-17 11:44 | CT ---
EXAMINATION TYPE: CT abdomen pelvis wo con DATE OF EXAM: 11/17/2018 COMPARISON: None HISTORY: Pain with hematuria CT DLP: 361.1 mGycm Examination of the solid and hollow viscera is limited given the lack of contrast. FINDINGS: LUNG BASES: No evidence for nodule. No evidence for infiltrate. LIVER/GB: The gallbladder is unremarkable. No space-occupying hepatic lesion. PANCREAS: No pancreatic mass identified. No inflammatory process seen. SPLEEN: No evidence for splenomegaly. No intrasplenic lesions seen. ADRENALS: No adrenal nodules identified. No evidence for thickening. KIDNEYS: No evidence for renal mass. No nephrolithiasis. No hydronephrosis. BOWEL: Appendix has a normal appearance. No evidence of bowel obstruction. No inflammatory process. Lymph nodes: No evidence for adenopathy greater than 1 cm. Abdominal aorta: Atheromatous changes seen. No evidence for aneurysm. Genital organs: No significant abnormality. Other: No significant abnormality. IMPRESSION: NO ACUTE PROCESS TO ACCOUNT FOR THE PATIENT'S SYMPTOMS.
[2018-11-17 11:49] LABS: Appearance,Urine Clear (Clear); Bilirubin,Urine Negative (Negative); Blood,Urine Negative (Negative); Color,Urine Yellow; Glucose,Urine (UA) Negative (Negative); Ketones,Urine Negative (Negative); Leukocyte Esterase,Urine Negative (Negative); Nitrite,Urine Negative (Negative); Protein,Urine Negative (Negative); Specific Gravity,Urine 1.012 (1.001-1.035); Urobilinogen,Urine <2.0 mg/dL (<2.0)
[2018-11-17 12:21] VITALS: BP 105/74; PULSE 74; TEMP 97.8
== END 2018-11-17 12:21 | disposition home or self-care (01) ==
LOC: EC 10:20
DX: M54.5 Low back pain (principal); R31.9 Hematuria, unspecified; R10.9 Unspecified abdominal pain; F17.200 Nicotine dependence, unspecified, uncomplicated
CPT/HCPCS: 36415; 80053; 82150; 83690; 85025; 85610; 85730; 81003; 87086; 74176; 99284; 96374; 96375 ×2; 96361; J2270; J2405; J1885

== ENCOUNTER 2021-03-04 07:17 | Emergency (ER) | payer OTHER ==
[2021-03-04 07:24] VITALS: BP 121/87; PULSE 83; RESP 16; TEMP 98.1
--- NOTE | 2021-03-04 07:44 | ED ---
Psych HPI - General Chief Complaint: Psychiatric Symptoms Stated Complaint: Rehab placement Time Seen by Provider: 03/04/21 07:26 Source: patient Mode of arrival: ambulatory - History of Present Illness Initial Comments: 45-year-old male with history of alcohol and drug abuse presents to emergency Department chief complaint of requesting rehab. Patient reports his been using crack cocaine over the last 1.5 movements. Patient reports he is "addicted to the lifestyle" along with drinking 1 pint of fireball daily. He denies any homicidal, suicidal thoughts or ideations at this time. He has no further complaints. - Related Data Previous Rx's Medication Instructions Recorded Cyclobenzaprine [Flexeril] 10 mg PO TID #15 tab 11/17/18 Ibuprofen [Motrin] 600 mg PO Q6HR PRN #20 tab 11/17/18 Allergies Allergy/AdvReac Type Severity Reaction Status Date / Time ibuprofen Allergy Unknown Verified 03/04/21 07:24 Review of Systems ROS Statement: Those systems with pertinent positive or pertinent negative responses have been documented in the HPI. ROS Other: All systems not noted in ROS Statement are negative. Past Medical History Past Medical History: No Reported History Additional Past Medical History / Comment(s): Tubes in ears as a child History of Any Multi-Drug Resistant Organisms: None Reported Past Surgical History: Ear Surgery Additional Past Surgical History / Comment(s): Tubes in bilat ears as a child Past Psychological History: No Psychological Hx Reported Smoking Status: Current every day smoker Past Alcohol Use History: Abuse, Daily, Heavy Past Drug Use History: Cocaine, Marijuana, Prescription Drug Abuse General Exam Limitations: no limitations General appearance: alert, in no apparent distress Head exam: Present: atraumatic, normocephalic, normal inspection Eye exam: Present: normal appearance, PERRL, EOMI Pupils: Present: normal accommodation ENT exam: Present: normal exam, normal oropharynx, mucous membranes moist Neck exam: Present: normal inspection, full ROM Respiratory exam: Present: normal lung sounds bilaterally. Absent: respiratory distress Cardiovascular Exam: Present: regular rate, normal rhythm, normal heart sounds Extremities exam: Present: normal inspection, full ROM Back exam: Present: normal inspection, full ROM Neurological exam: Present: alert, oriented X3 Psychiatric exam: Present: normal affect, normal mood Skin exam: Present: warm, dry, intact, normal color Course Vital Signs 03/04/21 07:20 Temperature 98.1 F Pulse Rate 83 Respiratory 16 Rate Blood Pressure 121/87 O2 Sat by Pulse 100 Oximetry Medical Decision Making - Medical Decision Making 45-year-old male presents emergency department for psychiatric evaluation. I gave the patient information regarding local rehabilitation centers. Also provided a list of homeless shelters once revealed that he was homeless. Patient was also given food. Advised him to follow-up. Case discussed with Disposition Clinical Impression: Adjustment reaction of adult life Disposition: HOME SELF-CARE Condition: Stable Instructions (If sedation given, give patient instructions): Polysubstance Abuse (ED) Additional Instructions: Follow-up with outpatient clinic from the list provided. Return to emergency department if symptoms worsen. Is patient prescribed a controlled substance at d/c from ED?: No Referrals: None,Stated [Primary Care Provider] - 1-2 days Time of Disposition: 07:43
== END 2021-03-04 08:05 | disposition home or self-care (01) ==
LOC: EC 07:17
DX: F43.20 Adjustment disorder, unspecified (principal); F17.200 Nicotine dependence, unspecified, uncomplicated; F12.90 Cannabis use, unspecified, uncomplicated; F14.90 Cocaine use, unspecified, uncomplicated
CPT/HCPCS: 99284

== ENCOUNTER 2021-05-06 12:05 | Emergency (ER) | payer OTHER ==
[2021-05-06] MEDS ORDERED: SODIUM CHLORIDE 0.9% 1,000 ML IV STA (12:17)
[2021-05-06] MEDS ORDERED: ONDANSETRON 4 MG/2 ML VIAL IVP STA (12:17)
--- NOTE | 2021-05-06 12:17 | ED ---
General Adult HPI - General Chief complaint: Anxiety Stated complaint: panic attack Time Seen by Provider: 05/06/21 12:10 Source: patient, RN notes reviewed, old records reviewed Mode of arrival: ambulatory Limitations: no limitations - History of Present Illness Initial comments: Patient is a 45-year-old male with past medical history remarkable for po lysubstance abuse including crack cocaine and 1 pint of alcohol per day with no history of alcohol withdrawal or DTs presents emergency Department complaining of a possible panic attack. Patient states he was walking to work this morning when he began feeling some subjective paresthesias, mild palpitations, as well as a mild headache. States he felt lightheaded as well but did not pass out. Denies trauma. Said he began shaking all over. He presents emergency department for further evaluation. Symptoms began approximately 3-4 hrs prior to arrival. States he has the palpitations earlier but they have since gone. States most of the symptoms are gone except for very mild headache. He was dr inking a significant amount of alcohol yesterday. States he did not drink this morning. Denies any history of withdrawal. Denies any fevers, chills, cough. Denies any abdominal pain but does endorse some nausea. Denies any urinary complaints or lower extremity swelling. No history of blood clots. Denies any other drug use over the last day. He is concerned that it may be having a panic attack. Patient presents emergency department for evaluation. - Related Data Previous Rx's Medication Instructions Recorded Cyclobenzaprine [Flexeril] 10 mg PO TID #15 tab 11/17/18 Ibuprofen [Motrin] 600 mg PO Q6HR PRN #20 tab 11/17/18 Allergies Allergy/AdvReac Type Severity Reaction Status Date / Time ibuprofen Allergy Unknown Verified 05/06/21 12:08 Review of Systems ROS Statement: Those systems with pertinent positive or pertinent negative responses have been documented in the HPI. Review of Systems: CONST: Denies fever EYES: Denies blurry vision ENT: Denies nasal congestion C/V: Endorses palpitations earlier RESP: Denies shortness of breath GI: Endorses nausea : Denies dysuria SKIN: Denies rash. MSK: Denies joint pain. NEURO: Endorses mild headache ROS Other: All systems not noted in ROS Statement are negative. Past Medical History Past Medical History: No Reported History Additional Past Medical History / Comment(s): Tubes in ears as a child History of Any Multi-Drug Resistant Organisms: None Reported Past Surgical History: Ear Surgery Additional Past Surgical History / Comment(s): Tubes in bilat ears as a child Past Psychological History: No Psychological Hx Reported Smoking Status: Current every day smoker Past Alcohol Use History: Abuse, Daily, Heavy Past Drug Use History: Cocaine, Marijuana, Prescription Drug Abuse General Exam - General Exam Comments Initial Comments: General: Appears in no acute distress. HEAD: Normal with no signs of head trauma. EYES: PERRLA, EOMI, conjunctiva normal, no discharge. ENT: Hearing grossly intact, normal oropharynx. No tongue fasciculations present. RESPIRATORY: Clear breath sounds bilaterally. No wheezes, rales, or rhonchi. C/V: Regular rate and rhythm. S1 and S2 auscultated, no edema, peripheral pulses 2+ and intact throughout ABD: Abd is soft, nontender, nondistended EXT: Normal range of motion, no obvious deformity SKIN: No rashes or lesions observed on exposed skin. NEURO: Alert and oriented x 4. Cranial nerves II-XII intact. No focal sensory or strength deficits. Cerebellar function is intact as evident by normal finger to nose testing. Patient is able to ambulate without difficulty. No fasciculations present. No signs for alcohol withdrawl at this time. NIH is 0. GCS of 15. Limitations: no limitations Course Vital Signs 05/06/21 05/06/21 12:06 13:57 Temperature 98.1 F 98.0 F Pulse Rate 97 66 Respiratory 18 16 Rate Blood Pressure 112/74 108/75 O2 Sat by Pulse 97 98 Oximetry Medical Decision Making - Medical Decision Making Based on the patient's presentation and physical exam, I'm concerned for possible cardiac etiology for his current symptoms but cannot rule out possibility of alcohol-related etiology with this extensive history of crack cocaine and alcohol use, or a panic attack. Therefore cardiac exam as well as basic laboratory studies will be obtained. It does not appear acutely intoxicated with alcohol and is also not currently withdrawing from alcohol. He will symptomatically be treated with a 1 L fluid bolus in addition to 1 mg of Ativan, Zofran. He received Tylenol for his mild headache. Patient was in agreement this plan. Denies any worsening stressors in his life at this time.Will be attached to continuous cardiac monitoring while he is here in the department. Patient's EKG revealed no acute changes and no signs of acute ischemia at this time.Patient's chest x-ray shows no acute cardiopulmonary process. Patient's laboratory studies are remarkable for a negative troponin. Remainder of his laboratory studies are unremarkable. Reevaluation come patient is feeling much improved, symptoms have resolved. We discussed the results of his negative workup. I do believe it is safer to be discharged home at this time. Heart score is low at 1. He was in agreement this plan. He will be provided with a work note. I instructed the patient to follow up with their PCP in the next 3 days. I p rovided contact information for follow up with Dr. He as a PCP. I explained that the patient should return to the emergency department if they experience any worsening symptoms. Strict return precautions were discussed with the patient. The patient expressed understanding of these instructions. I answered all questions that the patient had. The patient was discharged home in good condition with their prescriptions and follow up information. - Lab Data Result diagrams: 05/06/21 12:40 05/06/21 12:40 Lab Results 05/06/21 05/06/21 05/06/21 Range/Units 12:40 12:40 12:40 WBC 10.5 (3.8-10.6) k/uL RBC 4.45 (4.30-5.90) m/uL Hgb 14.5 (13.0-17.5) gm/dL Hct 41.7 (39.0-53.0) % MCV 93.7 (80.0-100.0) fL MCH 32.7 (25.0-35.0) pg MCHC 34.9 (31.0-37.0) g/dL RDW 13.3 (11.5-15.5) % Plt Count 338 (150-450) k/uL MPV 6.7 Neutrophils % 72 % Lymphocytes % 18 % Monocytes % 7 % Eosinophils % 1 % Basophils % 0 % Neutrophils # 7.5 (1.3-7.7) k/uL Lymphocytes # 1.9 (1.0-4.8) k/uL Monocytes # 0.7 (0-1.0) k/uL Eosinophils # 0.1 (0-0.7) k/uL Basophils # 0.0 (0-0.2) k/uL PT 9.7 (9.0-12.0) sec INR 0.9 (<1.2) APTT 25.6 (22.0-30.0) sec Sodium 140 (137-145) mmol/L Potassium 3.6 (3.5-5.1) mmol/L Chloride 105 (98-107) mmol/L Carbon Dioxide 23 (22-30) mmol/L Anion Gap 12 mmol/L BUN 17 (9-20) mg/dL Creatinine 0.81 (0.66-1.25) mg/dL Est GFR (CKD-EPI)AfAm >90 (>60 ml/min/1.73 sqM) Est GFR (CKD-EPI)NonAf >90 (>60 ml/min/1.73 sqM) Glucose 104 H (74-99) mg/dL Calcium 9.4 (8.4-10.2) mg/dL Magnesium 2.0 (1.6-2.3) mg/dL Total Bilirubin 0.5 (0.2-1.3) mg/dL AST 24 (17-59) U/L ALT 10 (4-49) U/L Alkaline Phosphatase 95 (38-126) U/L Troponin I (0.000-0.034) ng/mL Total Protein 7.7 (6.3-8.2) g/dL Albumin 4.4 (3.5-5.0) g/dL Amylase 53 (30-110) U/L Lipase 81 (23-300) U/L 05/06/21 Range/Units 12:40 WBC (3.8-10.6) k/uL RBC (4.30-5.90) m/uL Hgb (13.0-17.5) gm/dL Hct (39.0-53.0) % MCV (80.0-100.0) fL MCH (25.0-35.0) pg MCHC (31.0-37.0) g/dL RDW (11.5-15.5) % Plt Count (150-450) k/uL MPV Neutrophils % % Lymphocytes % % Monocytes % % Eosinophils % % Basophils % % Neutrophils # (1.3-7.7) k/uL Lymphocytes # (1.0-4.8) k/uL Monocytes # (0-1.0) k/uL Eosinophils # (0-0.7) k/uL Basophils # (0-0.2) k/uL PT (9.0-12.0) sec INR (<1.2) APTT (22.0-30.0) sec Sodium (137-145) mmol/L Potassium (3.5-5.1) mmol/L Chloride (98-107) mmol/L Carbon Dioxide (22-30) mmol/L Anion Gap mmol/L BUN (9-20) mg/dL Creatinine (0.66-1.25) mg/dL Est GFR (CKD-EPI)AfAm (>60 ml/min/1.73 sqM) Est GFR (CKD-EPI)NonAf (>60 ml/min/1.73 sqM) Glucose (74-99) mg/dL Calcium (8.4-10.2) mg/dL Magnesium (1.6-2.3) mg/dL Total Bilirubin (0.2-1.3) mg/dL AST (17-59) U/L ALT (4-49) U/L Alkaline Phosphatase (38-126) U/L Troponin I <0.012 (0.000-0.034) ng/mL Total Protein (6.3-8.2) g/dL Albumin (3.5-5.0) g/dL Amylase (30-110) U/L Lipase (23-300) U/L - EKG Data -: EKG Interpreted by Me EKG Comments: 12-lead Electrocardiogram Interpretation Note EKG was reviewed and interpreted by myself. 12-lead ECG performed at 1211 is interpreted by me as revealing normal sinus rhythm at a rate of 88 beats per minute. Left axis deviation. MA interval is 156 ms, QRS duration is 114 ms, QTc is 445 ms.. There were no ST or T wave abnormalities to suggest myocardial ischemia or injury. R wave progression across the precordium was satisfactory. By my interpretation this EKG is non-diagnostic for acute ischemia. EKG is unchanged from prior EKGs. No acute changes. Disposition Clinical Impression: Anxiety, Polysubstance abuse, Heart palpitations Disposition: HOME SELF-CARE Condition: Good Instructions (If sedation given, give patient instructions): Generalized Anxiety Disorder (ED) Is patient prescribed a controlled substance at d/c from ED?: No Referrals: None,Stated [Primary Care Provider] - 1-2 days Khloe He DO [Doctor of Osteopathic Medicine] - 1-2 days
[2021-05-06] MEDS ORDERED: LORazepam 2 MG/ML INJ IV STA (12:18)
[2021-05-06] MEDS ORDERED: ACETAMINOPHEN TAB 500 MG TAB PO STA (12:22)
[2021-05-06 12:51] LABS: Basophils % (A) 0 %; Eosinophils # (A) 0.1 k/uL (0-0.7); Eosinophils % (A) 1 %; HCT 41.7 % (39.0-53.0); HGB 14.5 gm/dL (13.0-17.5); Lymphocytes # (A) 1.9 k/uL (1.0-4.8); Lymphocytes % (A) 18 %; MCH 32.7 pg (25.0-35.0); MCHC 34.9 g/dL (31.0-37.0); MCV 93.7 fL (80.0-100.0); Mean Platelet Volume 6.7; Monocytes # (A) 0.7 k/uL (0-1.0); Monocytes % (A) 7 %; Neutrophils # (A) 7.5 k/uL (1.3-7.7); Neutrophils % (A) 72 %; Platelet Count 338 k/uL (150-450); RBC 4.45 m/uL (4.30-5.90); RDW 13.3 % (11.5-15.5); WBC 10.5 k/uL (3.8-10.6)
[2021-05-06 13:02] LABS: ALT 10 U/L (4-49); AST 24 U/L (17-59); African American GFR (CKD) >90 (>60 ml/min/1.73 sqM); Albumin 4.4 g/dL (3.5-5.0); Alkaline Phosphatase 95 U/L (38-126); Amylase 53 U/L (30-110); Anion Gap 12 mmol/L; Blood Urea Nitrogen 17 mg/dL (9-20); Calcium 9.4 mg/dL (8.4-10.2); Carbon Dioxide 23 mmol/L (22-30); Chloride 105 mmol/L (98-107); Glucose 104 mg/dL (74-99); Lipase 81 U/L (23-300); Non-African American GFR(CKD) >90 (>60 ml/min/1.73 sqM); Potassium 3.6 mmol/L (3.5-5.1); Sodium 140 mmol/L (137-145); Total Bilirubin 0.5 mg/dL (0.2-1.3); Total Protein 7.7 g/dL (6.3-8.2)
--- NOTE | 2021-05-06 13:02 | XR ---
EXAMINATION TYPE: XR chest 2V DATE OF EXAM: 05/06/2021 COMPARISON: 08/26/2018 HISTORY: Chest pain. TECHNIQUE: Frontal and lateral views of the chest are obtained. FINDINGS: There is no focal air space opacity, pleural effusion, or pneumothorax seen. The cardiac silhouette size is within normal limits. The osseous structures are intact. IMPRESSION: No acute cardiopulmonary process.
[2021-05-06 13:09] LABS: INR 0.9 (<1.2); Partial Thromboplastin Time 25.6 sec (22.0-30.0); Prothrombin Time 9.7 sec (9.0-12.0)
[2021-05-06 14:00] VITALS: BP 108/75; PULSE 66; RESP 16; TEMP 98
== END 2021-05-06 14:02 | disposition home or self-care (01) ==
LOC: EC 12:05
DX: F41.9 Anxiety disorder, unspecified (principal); F19.10 Other psychoactive substance abuse, uncomplicated; R00.2 Palpitations; F17.200 Nicotine dependence, unspecified, uncomplicated; F12.90 Cannabis use, unspecified, uncomplicated; F14.90 Cocaine use, unspecified, uncomplicated; Z79.1 Long term (current) use of non-steroidal anti-inflammatories (NSAID); Z79.899 Other long term (current) drug therapy
CPT/HCPCS: 36415; 93005; 80053; 82150; 83690; 83735; 84484; 85025; 85610; 85730; 71046; 99285; 96374; 96375; 96361; J2060; J2405; 99282

== ENCOUNTER 2022-07-01 19:08 | Emergency (ER) | payer OTHER ==
[2022-07-01] MEDS ORDERED: ACETAMINOPHEN TAB 500 MG TAB PO STA (20:16)
[2022-07-01] MEDS ORDERED: KETOROLAC 15 MG/ML 1 ML VIAL IM STA (20:16)
[2022-07-01 20:30] LABS: Amphetamine Screen,Urine Not Detected (NotDetected); Barbiturate Screen,Urine Not Detected (NotDetected); Benzodiazepines Screen,Urine Not Detected (NotDetected); Cocaine Screen,Urine Not Detected (NotDetected); Methadone Screen, Urine Not Detected (NotDetected); Opiate Screen,Urine Not Detected (NotDetected); Oxycodone Screen, Urine Not Detected (NotDetected); Phencyclidine Screen,Urine Not Detected (NotDetected); Tricyclic Antidepressant,Urine Not Detected (NotDetected); Urn Cannabinoid Scrn Detected (NotDetected)
--- NOTE | 2022-07-01 20:32 | XR ---
EXAMINATION TYPE: XR foot complete LT, XR ankle complete LT DATE OF EXAM: 07/01/2022 8:24 PM INDICATION: Patient age:Male; 46 years old; Reason for study: Injury; COMPARISON: None TECHNIQUE: The left foot and ankle was examined in the AP, oblique, and lateral projections. FINDINGS: No evidence of any acute osseous pathology. No evidence of soft tissue swelling. Joints are preserve d. Remote injury to the medial malleolus with well-corticated osseous body present. Mild soft tissue swelling around the ankle. Calcaneal plantar spurring noted. IMPRESSION: 1. No evidence of acute fracture. 2. Mild soft tissue swelling could represent underlying soft tissue injury. 3. Remote injury the medial malleolus suspected.
[2022-07-01] MEDS ORDERED: ORPHENADRINE 30 MG/ML 2 ML VIAL IM STA (20:33)
[2022-07-01] MEDS ORDERED: DEXAMETHASONE SOD PHOSPHATE 10 MG/ML 1 ML VIAL IM STA (20:33)
--- NOTE | 2022-07-01 20:41 | ED ---
Psych HPI - History of Present Illness MD Complaint: other (etoh) -: unknown Associated Psychiatric Symptoms: depression, suicidal ideation Quality: getting worse Improves With: none Worsens With: alcohol Context: significant life stressor Treatments Prior to Arrival: placed on mental health hold If Self Harm: admits thoughts of self harm, has plan <Ilya Miramontes - Last Filed: 07/02/22 03:26> - General Source: patient Mode of arrival: ambulatory - History of Present Illness MD Complaint: suicidal ideation, feels depressed History of same: Yes If Self Harm: admits thoughts of self harm, has plan <Leeanna Obrien - Last Filed: 07/02/22 03:42> - General Chief Complaint: Psychiatric Symptoms Stated Complaint: Mental Health Time Seen by Provider: 07/01/22 19:31 - History of Present Illness Initial Comments: This is a 46-year-old male who presents to the emergency department for psychiatric evaluation. Patient is also complaining of left foot and ankle pain. He tripped over a curb today causing this injury. Most of the pain is to the ankle and top of the left foot. With regards to the psychiatric concerns, he notes suicidal ideations. These have been going on for at least a week, but have been a recurrent problem for him over the last year. His girlfriend broke up with him today, exacerbating this issue. He feels like he cannot do anything right and has plans to overdose with pills and alcohol. He does not currently feel safe going home. He is supposed to take Abilify and Depakote, however he has not taken this medication in over a month. Also reports chronic alcohol use of approximately one half of a pint each day. Denies any homicidal ideations. Denies any fevers, chills, sore throat, cough, dyspnea, chest pain, palpitations, abdominal pain, nausea, vomiting, diarrhea, back pain, or headaches. (Leeanna Obrien) - Related Data Previous Rx's Medication Instructions Recorded Cyclobenzaprine [Flexeril] 10 mg PO TID #15 tab 11/17/18 Ibuprofen [Motrin] 600 mg PO Q6HR PRN #20 tab 11/17/18 Allergies Allergy/AdvReac Type Severity Reaction Status Date / Time ibuprofen Allergy Unknown Verified 05/06/21 12:08 Review of Systems ROS Other: All systems not noted in ROS Statement are negative. <Ilya Miramontes - Last Filed: 07/02/22 03:26> ROS Other: All systems not noted in ROS Statement are negative. <Leeanna Obrien - Last Filed: 07/02/22 03:42> ROS Statement: Those systems with pertinent positive or pertinent negative responses have been documented in the HPI. Past Medical History Past Medical History: No Reported History Additional Past Medical History / Comment(s): Tubes in ears as a child History of Any Multi-Drug Resistant Organisms: None Reported Past Surgical History: Ear Surgery Additional Past Surgical History / Comment(s): Tubes in bilat ears as a child Past Psychological History: No Psychological Hx Reported Smoking Status: Current every day smoker Past Alcohol Use History: Abuse, Daily, Heavy Past Drug Use History: Cocaine, Marijuana, Prescription Drug Abuse <Leeanna Obrien - Last Filed: 07/02/22 03:42> General Exam General appearance: alert, appears intoxicated, anxious Head exam: Present: atraumatic, normocephalic, normal inspection Eye exam: Present: normal appearance, PERRL, EOMI. Absent: scleral icterus, c onjunctival injection, periorbital swelling ENT exam: Present: normal exam, mucous membranes moist Neck exam: Present: normal inspection. Absent: tenderness, meningismus, lymphadenopathy Respiratory exam: Present: normal lung sounds bilaterally. Absent: respiratory distress, wheezes, rales, rhonchi, stridor Cardiovascular Exam: Present: regular rate, normal rhythm, normal heart sounds. Absent: systolic murmur, diastolic murmur, rubs, gallop, clicks GI/Abdominal exam: Present: soft, normal bowel sounds. Absent: distended, tenderness, guarding, rebound, rigid Extremities exam: Present: normal inspection, full ROM, normal capillary refill. Absent: tenderness, pedal edema, joint swelling, calf tenderness Back exam: Present: normal inspection Neurological exam: Present: alert, oriented X3, CN II-XII intact Psychiatric exam: Present: normal affect, normal mood Skin exam: Present: warm, dry, intact, normal color. Absent: rash <Ilya Miramontes - Last Filed: 07/02/22 03:26> Limitations: no limitations General appearance: alert, in no apparent distress Head exam: Present: atraumatic, normocephalic, normal inspection Respiratory exam: Present: normal lung sounds bilaterally. Absent: respiratory distress, wheezes, rales, rhonchi, stridor Cardiovascular Exam: Present: regular rate, normal rhythm, normal heart sounds. Absent: systolic murmur, diastolic murmur, rubs, gallop, clicks Extremities exam: Present: other (Swelling and tenderness superior to the left lateral malleolus and the dorsal aspect of the right midfoot.) Neurological exam: Present: alert, oriented X3, CN II-XII intact Psychiatric exam: Present: depressed, agitated, suicidal ideation. Absent: homicidal ideation Skin exam: Present: warm, dry, intact, normal color. Absent: rash <Leeanna Obrien - Last Filed: 07/02/22 03:42> Course <Ilya Miramontes - Last Filed: 07/02/22 03:26> Vital Signs 07/01/22 19:24 Temperature 98 F Pulse Rate 86 Respiratory 16 Rate Blood Pressure 107/68 O2 Sat by Pulse 98 Oximetry - Reevaluation(s) Reevaluation #1: 07/02/22 03:27 Medical records reviewed 07/02/22 03:27 Medical clear for psychiatric evaluation (Ilya Miramontes) Medical Decision Making - Lab Data Result diagrams: 07/02/22 01:05 07/02/22 01:05 <Ilya Miramontes - Last Filed: 07/02/22 03:26> - Lab Data Result diagrams: 07/02/22 01:05 07/02/22 01:05 - Radiology Data Radiology results: report reviewed, image reviewed <Leeanna Obrien - Last Filed: 07/02/22 03:42> - Medical Decision Making 46 male who was seen eval for psychiatric illness. Patient will be admitted for psychiatric evaluation and treatment, patient will need to be transferred for inpatient treatment (Ilya Miramontes) This is a 46-year-old male who presents to the emergency department for left ankle pain and psychiatric evaluation. X-ray of the left foot and ankle obtained, I'm not able to identify any fractures or dislocations. He was given Tylenol and Norflex for his pain. He was asking for narcotic medication, however I declined due to the patient's history of cocaine and prescription drug abuse. EtOH is 0.07, under the 0.08 cut off, and he is clear for psychiatric evaluation. EPS determined that the patient meets criteria for inpatient psychiatric management. However, the patient was determined to be out of network and will likely be transferred to [facility]. Petition and certification requested by [facility], this will be done by ED attending Dr. Miramontes. (Leeanna Obrien) - Lab Data Lab Results 07/01/22 07/01/22 07/02/22 Range/Units 00:00 20:11 01:05 WBC 6.8 (3.8-10.6) k/uL RBC 4.48 (4.30-5.90) m/uL Hgb 14.1 (13.0-17.5) gm/dL Hct 41.3 (39.0-53.0) % MCV 92.3 (80.0-100.0) fL MCH 31.4 (25.0-35.0) pg MCHC 34.0 (31.0-37.0) g/dL RDW 12.9 (11.5-15.5) % Plt Count 292 (150-450) k/uL MPV 7.2 Neutrophils % 81 % Lymphocytes % 16 % Monocytes % 1 % Eosinophils % 1 % Basophils % 0 % Neutrophils # 5.5 (1.3-7.7) k/uL Lymphocytes # 1.1 (1.0-4.8) k/uL Monocytes # 0.1 (0-1.0) k/uL Eosinophils # 0.0 (0-0.7) k/uL Basophils # 0.0 (0-0.2) k/uL Sodium (137-145) mmol/L Potassium (3.5-5.1) mmol/L Chloride (98-107) mmol/L Carbon Dioxide (22-30) mmol/L Anion Gap mmol/L BUN (9-20) mg/dL Creatinine (0.66-1.25) mg/dL Est GFR (CKD-EPI)AfAm (>60 ml/min/1.73 sqM) Est GFR (CKD-EPI)NonAf (>60 ml/min/1.73 sqM) Glucose (74-99) mg/dL Calcium (8.4-10.2) mg/dL Total Bilirubin (0.2-1.3) mg/dL AST (17-59) U/L ALT (4-49) U/L Alkaline Phosphatase (38-126) U/L Total Protein (6.3-8.2) g/dL Albumin (3.5-5.0) g/dL Urine Color Light Yellow Urine Appearance Clear (Clear) Urine pH 6.0 (5.0-8.0) Ur Specific [place] 1.006 (1.001-1.035) Urine Protein Negative (Negative) Urine Glucose (UA) Negative (Negative) Urine Ketones Negative (Negative) Urine Blood Negative (Negative) Urine Nitrite Negative (Negative) Urine Bilirubin Negative (Negative) Urine Urobilinogen <2.0 (<2.0) mg/dL Ur Leukocyte Esterase Negative (Negative) Urine Opiates Screen Not Detected (NotDetected) Ur Oxycodone Screen Not Detected (NotDetected) Urine Methadone Screen Not Detected (NotDetected) Ur Propoxyphene Screen Not Detected (NotDetected) Ur Barbiturates Screen Not Detected (NotDetected) U Tricyclic Antidepress Not Detected (NotDetected) Ur Phencyclidine Scrn Not Detected (NotDetected) Ur Amphetamines Screen Not Detected (NotDetected) U Methamphetamines Scrn Not Detected (NotDetected) U Benzodiazepines Scrn Not Detected (NotDetected) Urine Cocaine Screen Not Detected (NotDetected) U Marijuana (THC) Screen Detected H (NotDetected) Coronavirus (PCR) (Not Detectd) 07/02/22 07/02/22 Range/Units 01:05 01:05 WBC (3.8-10.6) k/uL RBC (4.30-5.90) m/uL Hgb (13.0-17.5) gm/dL Hct (39.0-53.0) % MCV (80.0-100.0) fL MCH (25.0-35.0) pg MCHC (31.0-37.0) g/dL RDW (11.5-15.5) % Plt Count (150-450) k/uL MPV Neutrophils % % Lymphocytes % % Monocytes % % Eosinophils % % Basophils % % Neutrophils # (1.3-7.7) k/uL Lymphocytes # (1.0-4.8) k/uL Monocytes # (0-1.0) k/uL Eosinophils # (0-0.7) k/uL Basophils # (0-0.2) k/uL Sodium 140 (137-145) mmol/L Potassium 4.7 (3.5-5.1) mmol/L Chloride 108 H (98-107) mmol/L Carbon Dioxide 23 (22-30) mmol/L Anion Gap 9 mmol/L BUN 17 (9-20) mg/dL Creatinine 0.99 (0.66-1.25) mg/dL Est GFR (CKD-EPI)AfAm >90 (>60 ml/min/1.73 sqM) Est GFR (CKD-EPI)NonAf >90 (>60 ml/min/1.73 sqM) Glucose 136 H (74-99) mg/dL Calcium 9.2 (8.4-10.2) mg/dL Total Bilirubin 0.6 (0.2-1.3) mg/dL AST 487 H (17-59) U/L ALT 976 H (4-49) U/L Alkaline Phosphatase 132 H (38-126) U/L Total Protein 7.3 (6.3-8.2) g/dL Albumin 4.3 (3.5-5.0) g/dL Urine Color Urine Appearance (Clear) Urine pH (5.0-8.0) Ur Specific [place] (1.001-1.035) Urine Protein (Negative) Urine Glucose (UA) (Negative) Urine Ketones (Negative) Urine Blood (Negative) Urine Nitrite (Negative) Urine Bilirubin (Negative) Urine Urobilinogen (<2.0) mg/dL Ur Leukocyte Esterase (Negative) Urine Opiates Screen (NotDetected) Ur Oxycodone Screen (NotDetected) Urine Methadone Screen (NotDetected) Ur Propoxyphene Screen (NotDetected) Ur Barbiturates Screen (NotDetected) U Tricyclic Antidepress (NotDetected) Ur Phencyclidine Scrn (NotDetected) Ur Amphetamines Screen (NotDetected) U Methamphetamines Scrn (NotDetected) U Benzodiazepines Scrn (NotDetected) Urine Cocaine Screen (NotDetected) U Marijuana (THC) Screen (NotDetected) Coronavirus (PCR) Not Detected (Not Detectd) Disposition Is patient prescribed a controlled substance at d/c from ED?: No <Ilya Miramontes - Last Filed: 07/02/22 03:26> <Leeanna Obrien - Last Filed: 07/02/22 03:42> Clinical Impression: Adjustment reaction of adult life, Depression, Suicidal ideation Disposition: TRANSFER TO PSYCH HOSP/UNIT Condition: Fair Referrals: None,Stated [Primary Care Provider] - 1-2 days
[2022-07-02 01:30] LABS: Basophils % (A) 0 %; Eosinophils % (A) 1 %; HCT 41.3 % (39.0-53.0); HGB 14.1 gm/dL (13.0-17.5); Lymphocytes # (A) 1.1 k/uL (1.0-4.8); Lymphocytes % (A) 16 %; MCH 31.4 pg (25.0-35.0); MCV 92.3 fL (80.0-100.0); Mean Platelet Volume 7.2; Monocytes # (A) 0.1 k/uL (0-1.0); Monocytes % (A) 1 %; Neutrophils # (A) 5.5 k/uL (1.3-7.7); Neutrophils % (A) 81 %; Platelet Count 292 k/uL (150-450); RBC 4.48 m/uL (4.30-5.90); RDW 12.9 % (11.5-15.5); WBC 6.8 k/uL (3.8-10.6)
[2022-07-02 01:37] LABS: Appearance,Urine Clear (Clear); Bilirubin,Urine Negative (Negative); Blood,Urine Negative (Negative); Color,Urine Light Yellow; Glucose,Urine (UA) Negative (Negative); Ketones,Urine Negative (Negative); Leukocyte Esterase,Urine Negative (Negative); Nitrite,Urine Negative (Negative); Protein,Urine Negative (Negative); Specific Gravity,Urine 1.006 (1.001-1.035); Urobilinogen,Urine <2.0 mg/dL (<2.0)
[2022-07-02 01:48] LABS: Potassium 4.7 mmol/L (3.5-5.1)
[2022-07-02 02:09] LABS: AST 487 U/L (17-59); African American GFR (CKD) >90 (>60 ml/min/1.73 sqM); Albumin 4.3 g/dL (3.5-5.0); Alkaline Phosphatase 132 U/L (38-126); Anion Gap 9 mmol/L; Blood Urea Nitrogen 17 mg/dL (9-20); Calcium 9.2 mg/dL (8.4-10.2); Carbon Dioxide 23 mmol/L (22-30); Chloride 108 mmol/L (98-107); Glucose 136 mg/dL (74-99); Non-African American GFR(CKD) >90 (>60 ml/min/1.73 sqM); Sodium 140 mmol/L (137-145); Total Bilirubin 0.6 mg/dL (0.2-1.3); Total Protein 7.3 g/dL (6.3-8.2)
[2022-07-02 02:17] LABS: ALT 976 U/L (4-49)
[2022-07-02] MEDS ORDERED: NICOTINE 21MG/24HR PATCH TRANSDERM STA (09:09)
[2022-07-02 14:22] VITALS: BP 105/65; PULSE 64; TEMP 98.5
[2022-07-02] MEDS ORDERED: MAG HYDROX/AL HYDROX/SIMETH 30 ML, HYOSCYAMINE ELIXIR 10 ML PO STA ×2 (18:39)
[2022-07-02] MEDS: MELATONIN 3 MG TABLET PO SCH (21:34)
[2022-07-03 02:49] VITALS: RESP 16
[2022-07-03] MEDS ORDERED: NICOTINE 21MG/24HR PATCH TRANSDERM STA (16:34)
[2022-07-03] MEDS: MELATONIN 3 MG TABLET PO SCH (23:07)
--- NOTE | 2022-07-04 14:01 | ED ---
Medical Decision Making - Lab Data Result diagrams: 07/02/22 01:05 07/02/22 01:05 Lab Results 07/01/22 07/01/22 07/02/22 Range/Units 00:00 20:11 01:05 WBC 6.8 (3.8-10.6) k/uL RBC 4.48 (4.30-5.90) m/uL Hgb 14.1 (13.0-17.5) gm/dL Hct 41.3 (39.0-53.0) % MCV 92.3 (80.0-100.0) fL MCH 31.4 (25.0-35.0) pg MCHC 34.0 (31.0-37.0) g/dL RDW 12.9 (11.5-15.5) % Plt Count 292 (150-450) k/uL MPV 7.2 Neutrophils % 81 % Lymphocytes % 16 % Monocytes % 1 % Eosinophils % 1 % Basophils % 0 % Neutrophils # 5.5 (1.3-7.7) k/uL Lymphocytes # 1.1 (1.0-4.8) k/uL Monocytes # 0.1 (0-1.0) k/uL Eosinophils # 0.0 (0-0.7) k/uL Basophils # 0.0 (0-0.2) k/uL Sodium (137-145) mmol/L Potassium (3.5-5.1) mmol/L Chloride (98-107) mmol/L Carbon Dioxide (22-30) mmol/L Anion Gap mmol/L BUN (9-20) mg/dL Creatinine (0.66-1.25) mg/dL Est GFR (CKD-EPI)AfAm (>60 ml/min/1.73 sqM) Est GFR (CKD-EPI)NonAf (>60 ml/min/1.73 sqM) Glucose (74-99) mg/dL Calcium (8.4-10.2) mg/dL Total Bilirubin (0.2-1.3) mg/dL AST (17-59) U/L ALT (4-49) U/L Alkaline Phosphatase (38-126) U/L Total Protein (6.3-8.2) g/dL Albumin (3.5-5.0) g/dL Urine Color Light Yellow Urine Appearance Clear (Clear) Urine pH 6.0 (5.0-8.0) Ur Specific [place] 1.006 (1.001-1.035) Urine Protein Negative (Negative) Urine Glucose (UA) Negative (Negative) Urine Ketones Negative (Negative) Urine Blood Negative (Negative) Urine Nitrite Negative (Negative) Urine Bilirubin Negative (Negative) Urine Urobilinogen <2.0 (<2.0) mg/dL Ur Leukocyte Esterase Negative (Negative) Urine Opiates Screen Not Detected (NotDetected) Ur Oxycodone Screen Not Detected (NotDetected) Urine Methadone Screen Not Detected (NotDetected) Ur Propoxyphene Screen Not Detected (NotDetected) Ur Barbiturates Screen Not Detected (NotDetected) U Tricyclic Antidepress Not Detected (NotDetected) Ur Phencyclidine Scrn Not Detected (NotDetected) Ur Amphetamines Screen Not Detected (NotDetected) U Methamphetamines Scrn Not Detected (NotDetected) U Benzodiazepines Scrn Not Detected (NotDetected) Urine Cocaine Screen Not Detected (NotDetected) U Marijuana (THC) Screen Detected H (NotDetected) Coronavirus (PCR) (Not Detectd) 07/02/22 07/02/22 Range/Units 01:05 01:05 WBC (3.8-10.6) k/uL RBC (4.30-5.90) m/uL Hgb (13.0-17.5) gm/dL Hct (39.0-53.0) % MCV (80.0-100.0) fL MCH (25.0-35.0) pg MCHC (31.0-37.0) g/dL RDW (11.5-15.5) % Plt Count (150-450) k/uL MPV Neutrophils % % Lymphocytes % % Monocytes % % Eosinophils % % Basophils % % Neutrophils # (1.3-7.7) k/uL Lymphocytes # (1.0-4.8) k/uL Monocytes # (0-1.0) k/uL Eosinophils # (0-0.7) k/uL Basophils # (0-0.2) k/uL Sodium 140 (137-145) mmol/L Potassium 4.7 (3.5-5.1) mmol/L Chloride 108 H (98-107) mmol/L Carbon Dioxide 23 (22-30) mmol/L Anion Gap 9 mmol/L BUN 17 (9-20) mg/dL Creatinine 0.99 (0.66-1.25) mg/dL Est GFR (CKD-EPI)AfAm >90 (>60 ml/min/1.73 sqM) Est GFR (CKD-EPI)NonAf >90 (>60 ml/min/1.73 sqM) Glucose 136 H (74-99) mg/dL Calcium 9.2 (8.4-10.2) mg/dL Total Bilirubin 0.6 (0.2-1.3) mg/dL AST 487 H (17-59) U/L ALT 976 H (4-49) U/L Alkaline Phosphatase 132 H (38-126) U/L Total Protein 7.3 (6.3-8.2) g/dL Albumin 4.3 (3.5-5.0) g/dL Urine Color Urine Appearance (Clear) Urine pH (5.0-8.0) Ur Specific [place] (1.001-1.035) Urine Protein (Negative) Urine Glucose (UA) (Negative) Urine Ketones (Negative) Urine Blood (Negative) Urine Nitrite (Negative) Urine Bilirubin (Negative) Urine Urobilinogen (<2.0) mg/dL Ur Leukocyte Esterase (Negative) Urine Opiates Screen (NotDetected) Ur Oxycodone Screen (NotDetected) Urine Methadone Screen (NotDetected) Ur Propoxyphene Screen (NotDetected) Ur Barbiturates Screen (NotDetected) U Tricyclic Antidepress (NotDetected) Ur Phencyclidine Scrn (NotDetected) Ur Amphetamines Screen (NotDetected) U Methamphetamines Scrn (NotDetected) U Benzodiazepines Scrn (NotDetected) Urine Cocaine Screen (NotDetected) U Marijuana (THC) Screen (NotDetected) Coronavirus (PCR) Not Detected (Not Detectd) Disposition Clinical Impression: Adjustment reaction of adult life, Depression, Suicidal ideation Disposition: HOME SELF-CARE Condition: Fair Is patient prescribed a controlled substance at d/c from ED?: No Referrals: None,Stated [Primary Care Provider] - 1-2 days Time of Disposition: 14:01
--- NOTE | 2022-07-04 14:24 | P.CN ---
Psychiatric Consult - . Consult date: 07/04/22 Consult:: 07/04/22 12:53 IDENTIFYING DATA: This patient is a 46-year-old -[place] male, currently lives in a three-quarter house in [facility]. 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 REASON FOR REFERRAL: Psychiatry was consulted for psychiatric evaluation HISTORY OF PRESENT ILLNESS: The patient presented to the hospital initially on 07/02 with a blood alcohol level of 0.07 as per ER note. Patient at that time was complaining of depression, suicidal thoughts after his girlfriend broke up with him. He had a potential plan of overdosing and drinking alcohol, as reported on EPS assessment. Patient was deemed appropriate for inpatient psychiatric care however was not admitted to [facility] and attempted to be transferred to a psychiatric unit in [facility] as this is where patient is from. Patient was apparently not able to get transferred and psychiatry was asked to reassess patient today. Patient states that he has been off his Abilify and Depakote for about a month now. Patient's AST and ALT were elevated at 487/976. Patient's urine drug screen is positive for marijuana. Patient was bright and directable during conversation. He claims that he is doing "better now". He is denying any current depression. He states that he was drunk when he had mentioned previously that he was depressed and suicidal. He states that his girlfriend broke up with him on Friday and he was feeling "very down". He states that after he came to the hospital. He is denying any other stressors. He states that he would like to go back to the three-quarter house and continue working at his 2 jobs. He is fairly future oriented and claims that he feels more "optimistic now". He claims that he wants to live for his kids and also himself. He is denying any [place] guns or weapons. He is denyi ng any anxiety at this time or any withdrawal symptoms. He states that he has a history of drinking alcohol and was sober however relapsed on Friday and drank "3 shots" before coming to the hospital. He states that as he appetite and sleep are fair at this time. At this time patient denies any suicidal or homical ideations, intent or plan. Patient denies any auditory, visual hallucinations and denies any paranoia or delusions. Patients admits to using alcohol as noted above. Claims that he smokes cigarettes daily. He claims that he uses marijuana occasionally. PAST PSYCHIATRIC HISTORY: Patient has a a history of one psychiatric admission 3 years ago at [facility]. He claimed that he is currently on Abilify and Depakote and [facility] He states that he does not know whether he sees a mid level or a psychiatrist there. Patient denies any history of suicide attempts in the past.] He denies any access to guns or weapons Past Medical History: No Reported History Additional Past Medical History / Comment(s): Tubes in ears as a child ALLERGIES: as per EMR. CHEMICAL DEPENDENCY HISTORY: as per HPI. FAMILY PSYCHIATRIC/SUBSTANCE USE HISTORY: claims that there is depression and anxiety that runs in his family SOCIAL HISTORY: Patient was [place] and [place] in [place] and moved between [place] and [facility] [place]. He claims that he completed his GED. 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 Claims that he lives in a three-quarter house in [facility]. He states that he did go to residential briefly in the past however did not specify what the charges were for. MENTAL STATUS EXAM: General Appearance: Patient appears to be stated age is alert, pleasant, and cooperative. Patient appears to have [air]hygiene and grooming wearing hospital gown with [air]eye contact. Behavior: [atient is calmly lying in bed without any agitated behavior.] Cooperative.Speech: Patient's speech is fluent and nonpressured. Mood/Affect: Patient reports their mood is "good now", affect is congruent and euthymic Suicidality/Homicidality: Patient denies having any suicidal or homicidal idea tion intent or plan. Perceptions: Patient denies any visual hallucinations [nd denies any auditory hallucinations] Though content/process: There is no evidence of any delusional thought content and thought process is linear and goal-directed. Oriented. Memory and concentration: AOX3, grossly intact for the purposes of this session. Can spell "WORLD" backwards Judgment and insight: Improved IMPRESSIONS: Depressive disorder unspecified, rule out adjustment disorder vs bipolar depression vs major depressive disorder alcohol use disorder cannabis use disorder, mild nicotine dependence PLAN: -At this time patient DOES NOT currently meet criteria for inpatient psychiatric admission. Patient is domonique to safety and is not endorsing any Si or HI. he is future oriented. -Would recommend the following medication changes/additions: can continue with current medication regimen. -completed a negative cert for patient and gave to EPS nurse, she will call [facility] house to confirm that patient is allowed back there and to ensure safe envt, no guns/weapons etc. -patient can follow up with his outpt psych provider. -Furnace Utility Operator spoke with patient about substance abuse and the harmful effects on medical and mental health, patient verbally understood and agreed. -Communicated plan to patient's nurse -Psychiatry will sign off at this time -Please contact with any questions.
== END 2022-07-04 14:30 | disposition home or self-care (01) ==
LOC: EC 19:08
DX: F43.20 Adjustment disorder, unspecified (principal); F32.A Depression, unspecified; R45.851 Suicidal ideations; F17.200 Nicotine dependence, unspecified, uncomplicated; F12.90 Cannabis use, unspecified, uncomplicated; Z88.6 Allergy status to analgesic agent; Z20.822 Contact with and (suspected) exposure to COVID-19
CPT/HCPCS: 99285 ×2; 96372 ×3; 82075; 36415; 80053; 85025; 81003; 80306; 87635; 73610; 73630; S4990; J1100; J2360

== ENCOUNTER 2022-08-07 08:30 | Inpatient (IN) | payer OTHER ==
[2022-08-07] MEDS ORDERED: SODIUM CHLORIDE 0.9% 500 ML 500 ML IV STA (09:01)
[2022-08-07] MEDS ORDERED: KETOROLAC 15 MG/ML 1 ML VIAL IVP STA (09:02)
[2022-08-07 09:17] LABS: Basophils % (A) 1 %; Eosinophils # (A) 0.2 k/uL (0-0.7); Eosinophils % (A) 4 %; HCT 38.7 % (39.0-53.0); HGB 13.3 gm/dL (13.0-17.5); Lymphocytes # (A) 1.7 k/uL (1.0-4.8); Lymphocytes % (A) 30 %; MCH 31.8 pg (25.0-35.0); MCHC 34.4 g/dL (31.0-37.0); MCV 92.4 fL (80.0-100.0); Mean Platelet Volume 7.5; Monocytes # (A) 0.5 k/uL (0-1.0); Monocytes % (A) 9 %; Neutrophils # (A) 3.1 k/uL (1.3-7.7); Neutrophils % (A) 54 %; Platelet Count 266 k/uL (150-450); RBC 4.19 m/uL (4.30-5.90); RDW 12.8 % (11.5-15.5); WBC 5.7 k/uL (3.8-10.6)
--- NOTE | 2022-08-07 09:20 | ED ---
Dizziness HPI - General Chief Complaint: Syncope Stated Complaint: rt side pain, syncope Time Seen by Provider: 08/07/22 08:33 Source: patient, EMS, RN notes reviewed Mode of arrival: EMS Limitations: no limitations - History of Present Illness Initial Comments: This is a 47-year-old male who presents to the emergency department for a fall, syncope, and right upper quadrant pain. He presents from [facility], where he has been for the last 2 days for cocaine use. Patient states that he was bending over to tie his shoes this morning, when he started to feel very dizzy, and proceeded to pass out. Patient fell and hit the back of his head, and cur rently complains of pain to this area. Denies any neck pain. [facility] notes that his blood pressure has also been low lately. Additionally, he has had intermittent right upper quadrant pain over the last week, worse over the last couple of days. He was in the emergency department at [facility] less than one week ago, and was told that he had an abnormal ultrasound of his gallbladder and it was recommended that he have an MRCP. However, the patient subsequently went to [facility] for rehab, and was unable to follow through with this. Denies any associated nausea or vomiting. He is unsure if the pain is related to the foods that he eats. Denies any fevers, chills, sore throat, cough, dyspnea, chest pain, palpitations, nausea, vomiting, diarrhea, or back pain. MD Complaint: dizziness, lightheadedness, other (syncope, RUQ pain) - Related Data Home Medications Medication Instructions Recorded Confirmed ARIPiprazole [Abilify] 5 mg PO HS 08/07/22 08/07/22 Multivitamins, Thera [Multivitamin 1 tab PO DAILY 08/07/22 08/07/22 (formulary)] buPROPion HCL [buPROPion HCL Xl] 150 mg PO DAILY 08/07/22 08/07/22 traZODone HCL [Desyrel] 100 mg PO HS 08/07/22 08/07/22 Allergies Allergy/AdvReac Type Severity Reaction Status Date / Time ibuprofen Allergy Rash/Hives Verified 08/07/22 11:38 Review of Systems ROS Statement: Those systems with pertinent positive or pertinent negative responses have been documented in the HPI. ROS Other: All systems not noted in ROS Statement are negative. Past Medical History Past Medical History: No Reported History Additional Past Medical History / Comment(s): HEP B, HEP C History of Any Multi-Drug Resistant Organisms: None Reported Past Surgical History: Ear Surgery Additional Past Surgical History / Comment(s): Tubes in bilat ears as a child Past Psychological History: No Psychological Hx Reported Smoking Status: Current every day smoker Past Alcohol Use History: Abuse, Daily, Heavy Past Drug Use History: Cocaine, Marijuana, Prescription Drug Abuse General Exam Limitations: no limitations General appearance: alert, in no apparent distress Head exam: Present: atraumatic, normocephalic, normal inspection Respiratory exam: Present: normal lung sounds bilaterally. Absent: respiratory distress, wheezes, rales, rhonchi, stridor Cardiovascular Exam: Present: bradycardia, normal heart sounds GI/Abdominal exam: Present: soft, tenderness (RUQ), normal bowel sounds. Absent: distended Neurological exam: Present: alert, oriented X3, CN II-XII intact Psychiatric exam: Present: normal affect, normal mood Skin exam: Present: warm, dry, intact, normal color. Absent: rash Course Vital Signs 08/07/22 08/07/22 08/07/22 08:37 10:07 11:10 Temperature 98 F Pulse Rate 50 L 45 L 50 L Respiratory 18 16 16 Rate Blood Pressure 97/56 107/74 102/76 O2 Sat by Pulse 100 100 95 Oximetry EKG Findings - EKG Comments: EKG Findings:: Sinus bradycardia. Ventricular rate 45 beats minute, WA interval 160 ms, QRS duration 126 ms, QTC 382 ms. EKG interpreted by myself and ED attending. - EKG Results: EKG: interpreted by MELI Medical Decision Making - Medical Decision Making This is a 47-year-old male who presents emergency department for right upper quadrant pain and syncope. Lab work does reveal elevated AST and ALTs, however these are much improved from prior values and the patient has a known diagnosis of hepatitis B and C. lab work was otherwise nonactionable. My interpretation of the chest x-ray identifies no localized consolidations or infiltrates. ultrasound of the right upper quadrant obtained, revealing no evidence of gallstones or other irregularities to account for the patient's symptoms. 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 I reviewed the patient's vital signs from prior visits, and he does frequently have blood pressure in the low 100s systolically, however he has never had a heart rate this low. Patient denies any chest pain, however his father of a myocardial infarction when he was 55 and his brother had a myocardial infarction when he was 36 that subsequently led to pacemaker placement. Patient's urine drug screen is positive for multiple substances, however these are substances that the patient has been on for a long period of time, and he has never had problems with bradycardia when on these medications or when withdrawing from them. It is possible that the syncope was related to the bradycardia. Patient will be admitted to medicine for symptomatic bradycardia with cardiology consult. This case was discussed in detail with the attending ED physician. Presentation, findings, and treatment plan discussed in detail as well. - Lab Data Result diagrams: 08/07/22 09:05 08/07/22 09:05 Lab Results 08/07/22 08/07/22 08/07/22 Range/Units 09:05 09:05 09:05 WBC 5.7 (3.8-10.6) k/uL RBC 4.19 L (4.30-5.90) m/uL Hgb 13.3 (13.0-17.5) gm/dL Hct 38.7 L (39.0-53.0) % MCV 92.4 (80.0-100.0) fL MCH 31.8 (25.0-35.0) pg MCHC 34.4 (31.0-37.0) g/dL RDW 12.8 (11.5-15.5) % Plt Count 266 (150-450) k/uL MPV 7.5 Neutrophils % 54 % Lymphocytes % 30 % Monocytes % 9 % Eosinophils % 4 % Basophils % 1 % Neutrophils # 3.1 (1.3-7.7) k/uL Lymphocytes # 1.7 (1.0-4.8) k/uL Monocytes # 0.5 (0-1.0) k/uL Eosinophils # 0.2 (0-0.7) k/uL Basophils # 0.0 (0-0.2) k/uL PT 10.7 (9.0-12.0) sec INR 1.0 (<1.2) APTT 26.0 (22.0-30.0) sec Sodium (137-145) mmol/L Potassium (3.5-5.1) mmol/L Chloride (98-107) mmol/L Carbon Dioxide (22-30) mmol/L Anion Gap mmol/L BUN (9-20) mg/dL Creatinine (0.66-1.25) mg/dL Est GFR (CKD-EPI)AfAm (>60 ml/min/1.73 sqM) Est GFR (CKD-EPI)NonAf (>60 ml/min/1.73 sqM) Glucose (74-99) mg/dL Calcium (8.4-10.2) mg/dL Total Bilirubin (0.2-1.3) mg/dL AST (17-59) U/L ALT (4-49) U/L Alkaline Phosphatase (38-126) U/L Troponin I (0.000-0.034) ng/mL Total Protein (6.3-8.2) g/dL Albumin (3.5-5.0) g/dL Amylase (30-110) U/L Lipase (23-300) U/L TSH (0.465-4.680) mIU/L Urine Color Yellow Urine Appearance Clear (Clear) Urine pH 6.0 (5.0-8.0) Ur Specific Delano 1.017 (1.001-1.035) Urine Protein Negative (Negative) Urine Glucose (UA) Negative (Negative) Urine Ketones Negative (Negative) Urine Blood Negative (Negative) Urine Nitrite Negative (Negative) Urine Bilirubin Negative (Negative) Urine Urobilinogen 2.0 (<2.0) mg/dL Ur Leukocyte Esterase Negative (Negative) Urine Opiates Screen (NotDetected) Ur Oxycodone Screen (NotDetected) Urine Methadone Screen (NotDetected) Ur Propoxyphene Screen (NotDetected) Ur Barbiturates Screen (NotDetected) U Tricyclic Antidepress (NotDetected) Ur Phencyclidine Scrn (NotDetected) Ur Amphetamines Screen (NotDetected) U Methamphetamines Scrn (NotDetected) U Benzodiazepines Scrn (NotDetected) Urine Cocaine Screen (NotDetected) U Marijuana (THC) Screen (NotDetected) 08/07/22 08/07/22 08/07/22 Range/Units 09:05 09:05 11:10 WBC (3.8-10.6) k/uL RBC (4.30-5.90) m/uL Hgb (13.0-17.5) gm/dL Hct (39.0-53.0) % MCV (80.0-100.0) fL MCH (25.0-35.0) pg MCHC (31.0-37.0) g/dL RDW (11.5-15.5) % Plt Count (150-450) k/uL MPV Neutrophils % % Lymphocytes % % Monocytes % % Eosinophils % % Basophils % % Neutrophils # (1.3-7.7) k/uL Lymphocytes # (1.0-4.8) k/uL Monocytes # (0-1.0) k/uL Eosinophils # (0-0.7) k/uL Basophils # (0-0.2) k/uL PT (9.0-12.0) sec INR (<1.2) APTT (22.0-30.0) sec Sodium 137 (137-145) mmol/L Potassium 4.2 (3.5-5.1) mmol/L Chloride 105 (98-107) mmol/L Carbon Dioxide 26 (22-30) mmol/L Anion Gap 6 mmol/L BUN 17 (9-20) mg/dL Creatinine 0.91 (0.66-1.25) mg/dL Est GFR (CKD-EPI)AfAm >90 (>60 ml/min/1.73 sqM) Est GFR (CKD-EPI)NonAf >90 (>60 ml/min/1.73 sqM) Glucose 88 (74-99) mg/dL Calcium 8.9 (8.4-10.2) mg/dL Total Bilirubin 0.8 (0.2-1.3) mg/dL AST 321 H (17-59) U/L ALT 528 H (4-49) U/L Alkaline Phosphatase 126 (38-126) U/L Troponin I <0.012 (0.000-0.034) ng/mL Total Protein 6.9 (6.3-8.2) g/dL Albumin 3.8 (3.5-5.0) g/dL Amylase 56 (30-110) U/L Lipase 75 (23-300) U/L TSH 0.602 (0.465-4.680) mIU/L Urine Color Urine Appearance (Clear) Urine pH (5.0-8.0) Ur Specific Delano (1.001-1.035) Urine Protein (Negative) Urine Glucose (UA) (Negative) Urine Ketones (Negative) Urine Blood (Negative) Urine Nitrite (Negative) Urine Bilirubin (Negative) Urine Urobilinogen (<2.0) mg/dL Ur Leukocyte Esterase (Negative) Urine Opiates Screen (NotDetected) Ur Oxycodone Screen (NotDetected) Urine Methadone Screen (NotDetected) Ur Propoxyphene Screen (NotDetected) Ur Barbiturates Screen (NotDetected) U Tricyclic Antidepress (NotDetected) Ur Phencyclidine Scrn (NotDetected) Ur Amphetamines Screen (NotDetected) U Methamphetamines Scrn (NotDetected) U Benzodiazepines Scrn (NotDetected) Urine Cocaine Screen (NotDetected) U Marijuana (THC) Screen (NotDetected) 08/07/22 Range/Units 11:13 WBC (3.8-10.6) k/uL RBC (4.30-5.90) m/uL Hgb (13.0-17.5) gm/dL Hct (39.0-53.0) % MCV (80.0-100.0) fL MCH (25.0-35.0) pg MCHC (31.0-37.0) g/dL RDW (11.5-15.5) % Plt Count (150-450) k/uL MPV Neutrophils % % Lymphocytes % % Monocytes % % Eosinophils % % Basophils % % Neutrophils # (1.3-7.7) k/uL Lymphocytes # (1.0-4.8) k/uL Monocytes # (0-1.0) k/uL Eosinophils # (0-0.7) k/uL Basophils # (0-0.2) k/uL PT (9.0-12.0) sec INR (<1.2) APTT (22.0-30.0) sec Sodium (137-145) mmol/L Potassium (3.5-5.1) mmol/L Chloride (98-107) mmol/L Carbon Dioxide (22-30) mmol/L Anion Gap mmol/L BUN (9-20) mg/dL Creatinine (0.66-1.25) mg/dL Est GFR (CKD-EPI)AfAm (>60 ml/min/1.73 sqM) Est GFR (CKD-EPI)NonAf (>60 ml/min/1.73 sqM) Glucose (74-99) mg/dL Calcium (8.4-10.2) mg/dL Total Bilirubin (0.2-1.3) mg/dL AST (17-59) U/L ALT (4-49) U/L Alkaline Phosphatase (38-126) U/L Troponin I (0.000-0.034) ng/mL Total Protein (6.3-8.2) g/dL Albumin (3.5-5.0) g/dL Amylase (30-110) U/L Lipase (23-300) U/L TSH (0.465-4.680) mIU/L Urine Color Urine Appearance (Clear) Urine pH (5.0-8.0) Ur Specific Delano (1.001-1.035) Urine Protein (Negative) Urine Glucose (UA) (Negative) Urine Ketones (Negative) Urine Blood (Negative) Urine Nitrite (Negative) Urine Bilirubin (Negative) Urine Urobilinogen (<2.0) mg/dL Ur Leukocyte Esterase (Negative) Urine Opiates Screen Not Detected (NotDetected) Ur Oxycodone Screen Not Detected (NotDetected) Urine Methadone Screen Not Detected (NotDetected) Ur Propoxyphene Screen Not Detected (NotDetected) Ur Barbiturates Screen Detected H (NotDetected) U Tricyclic Antidepress Not Detected (NotDetected) Ur Phencyclidine Scrn Not Detected (NotDetected) Ur Amphetamines Screen Not Detected (NotDetected) U Methamphetamines Scrn Not Detected (NotDetected) U Benzodiazepines Scrn Detected H (NotDetected) Urine Cocaine Screen Detected H (NotDetected) U Marijuana (THC) Screen Detected H (NotDetected) - Radiology Data Radiology results: report reviewed, image reviewed Disposition Clinical Impression: Symptomatic bradycardia, Syncope Disposition: ADMITTED IP TO THIS HOSP
[2022-08-07 09:42] LABS: ALT 528 U/L (4-49); AST 321 U/L (17-59); African American GFR (CKD) >90 (>60 ml/min/1.73 sqM); Albumin 3.8 g/dL (3.5-5.0); Alkaline Phosphatase 126 U/L (38-126); Amylase 56 U/L (30-110); Anion Gap 6 mmol/L; Blood Urea Nitrogen 17 mg/dL (9-20); Calcium 8.9 mg/dL (8.4-10.2); Carbon Dioxide 26 mmol/L (22-30); Chloride 105 mmol/L (98-107); Glucose 88 mg/dL (74-99); Lipase 75 U/L (23-300); Non-African American GFR(CKD) >90 (>60 ml/min/1.73 sqM); Potassium 4.2 mmol/L (3.5-5.1); Sodium 137 mmol/L (137-145); Total Bilirubin 0.8 mg/dL (0.2-1.3); Total Protein 6.9 g/dL (6.3-8.2)
[2022-08-07 09:43] LABS: Prothrombin Time 10.7 sec (9.0-12.0)
--- NOTE | 2022-08-07 10:10 | CT ---
EXAMINATION TYPE: CT brain cspine wo con DATE OF EXAM: 08/07/2022 COMPARISON: CT brain and cervical spine June 03, 2016 HISTORY: Fall, hit back of head with neck pain. CT DLP: 1359.8 mGycm. Automated Exposure Control for Dose Reduction was Utilized. TECHNIQUE: CT scan of the head and cervical spine are performed without contrast. FINDINGS: There is no acute intracranial hemorrhage, mass effect, or midline shift identified. The ventricles and sulci are within normal limits in size. Saldivar-white matter differentiation is maintain ed. The globes are intact and the visualized sinuses are clear. The calvarium is intact. Cervical spine is visualized in its entirety from C1 through upper thoracic levels and demonstrates s light grade 1 retrolisthesis C5 on C6 and C6 on C7 without evidence of acute fracture or dislocation. Prevertebral soft tissue appears within normal limits. The C1-C2 articulation is within normal edward its on the coronal images. Mild disc space narrowing with mild to moderate spurring at C5-C6 and C6- C7 levels is present. Posterior spur disc complexes efface the anterior thecal sac at these levels. M ild emphysematous change involving the upper lungs. Thyroid gland is normal in size. No significant c hange from prior. IMPRESSION: 1. There is no acute fracture or dislocation evident in the cervical spine. 2. No acute intracranial hemorrhage or midline shift is seen.
--- NOTE | 2022-08-07 10:13 | XR ---
EXAMINATION TYPE: XR chest 2V DATE OF EXAM: 08/07/2022 COMPARISON: 05/06/2021 TECHNIQUE: PA and lateral views submitted. HISTORY: Syncope FINDINGS: The lungs are clear and there is no pneumothorax, pleural effusion, or focal pneumonia. Heart size normal. No overt failure. Hypertrophic change thoracolumbar spine junction. IMPRESSION: 1. No acute process.
--- NOTE | 2022-08-07 10:52 | US ---
EXAMINATION TYPE: US gallbladder DATE OF EXAM: 08/07/2022 COMPARISON: NONE CLINICAL HISTORY: RUQ pain. Pain HEP B and C TECHNIQUE: Multiple sonographic images of the right upper quadrant are obtained. FINDINGS: EXAM MEASUREMENTS: Liver Length: 13.7 cm Gallbladder Wall: .3 cm CBD: .4 cm Right Kidney: 10 x 3.2 x 5.1 cm TABLE CUT OFF SAW OPERATOR NOTES: Pancreas: Tail obscured by overlying bowel gas Liver: wnl Gallbladder: wnl Evidence for sonographic Easton's sign: No CBD: wnl Right Kidney: wnl IMPRESSION: No definite acute process.
[2022-08-07 11:23] LABS: Appearance,Urine Clear (Clear); Bilirubin,Urine Negative (Negative); Blood,Urine Negative (Negative); Color,Urine Yellow; Glucose,Urine (UA) Negative (Negative); Ketones,Urine Negative (Negative); Leukocyte Esterase,Urine Negative (Negative); Nitrite,Urine Negative (Negative); Protein,Urine Negative (Negative); Specific Gravity,Urine 1.017 (1.001-1.035)
[2022-08-07 11:33] LABS: Amphetamine Screen,Urine Not Detected (NotDetected); Barbiturate Screen,Urine Detected (NotDetected); Benzodiazepines Screen,Urine Detected (NotDetected); Cocaine Screen,Urine Detected (NotDetected); Methadone Screen, Urine Not Detected (NotDetected); Opiate Screen,Urine Not Detected (NotDetected); Oxycodone Screen, Urine Not Detected (NotDetected); Phencyclidine Screen,Urine Not Detected (NotDetected); Tricyclic Antidepressant,Urine Not Detected (NotDetected); Urn Cannabinoid Scrn Detected (NotDetected)
[2022-08-07] MEDS ORDERED: ONDANSETRON 4 MG/2 ML VIAL IVP PRN (12:01)
[2022-08-07] MEDS ORDERED: KETOROLAC 15 MG/ML 1 ML VIAL IVP PRN (12:01)
[2022-08-07] MEDS ORDERED: NALOXONE 0.4 MG/ML 1 ML VIAL IV PRN (12:01)
--- NOTE | 2022-08-07 13:38 | P.CRDCN ---
History of Present Illness Consult date: 08/07/22 History of present illness: History of Present Illness: The patient is a 47-year-old male with a known history of chronic tobacco use, prior history of alcohol and cocaine use who was admitted from [facility] after syncopal episode. He got up this morning felt dizzy and passed out for a few seconds. He had no associated chest discomfort, palpitations or change in h is breathing. He is not very active physically pending his routine physical activity he denies any symptoms. He has used cocaine and alcohol for about 5 years but has been at [facility] for the last few days. In the emergency room he was noted to have sinus bradycardia but no pauses. When I saw him he was sleeping he had sinus bradycardia that returned to normal rate in the 70s when he woke up. He has no prior syncopal episode. He has no history of PND, orthopnea or peripheral edema. He smokes about a pack a day. He has no history of hypertension, hyperlipidemia or diabetes. He has a family history of cardiac disease in his brother. Medications: Wellbutrin and Abilify Review of Systems: Respiratory: No history of asthma, bronchitis or recent cough. GI: No nausea or vomiting . No history of peptic ulcer disease. No recent GI bleed. : No hematuria or dysuria. Nervous System: No stroke or seizure. Physical Examination: 47 old male, alert oriented no apparent distress,Blood pressure 102/70, Heart rate 60 Head: Normocephalic. Eyes: Sclerae nonicteric. Neck: Good carotid upstroke, no bruit, no jugular venous distention. Lungs: Clear to auscultation. Heart: Regular rate and rhythm, S1-S2, no S3, no rub. No murmur. Abdomen: Soft nontender, positive bowel sounds no organomegaly. Extremities: No edema, intact distal pulses. Labs: Hemoglobin 13.3, platelets 266, potassium 4.2, BUN 17, creatinine 0.91. Troponin less than 0.012, TSH 0.602. AST 321, ALT 528. Computed tomography scan of the head unremarkable, ultrasound of the right upper quadrant unremarkable. EKG: Is not available Impression: 1. Syncope, probable orthostatic hypotension 2. Sinus bradycardia, asymptomatic 3. History of chronic cocaine and alcohol abuse, he will be have 4. History of smoking Plan: 1. Obtain an EKG 2. Obtain an echo 3. Continue telemetry 4. No evidence to suggest malignant bradycardia 5. Thank you for this consult we will follow with you Past Medical History Past Medical History: No Reported History Additional Past Medical History / Comment(s): HEP B, HEP C History of Any Multi-Drug Resistant Organisms: None Reported Past Surgical History: Ear Surgery Additional Past Surgical History / Comment(s): Tubes in bilat ears as a child Past Psychological History: No Psychological Hx Reported Smoking Status: Current every day smoker Past Alcohol Use History: Abuse, Daily, Heavy Past Drug Use History: Cocaine, Marijuana, Prescription Drug Abuse Medications and Allergies Home Medications Medication Instructions Recorded Confirmed Type ARIPiprazole [Abilify] 5 mg PO HS 08/07/22 08/07/22 History Multivitamins, Thera [Multivitamin 1 tab PO DAILY 08/07/22 08/07/22 History (formulary)] buPROPion HCL [buPROPion HCL Xl] 150 mg PO DAILY 08/07/22 08/07/22 History traZODone HCL [Desyrel] 100 mg PO HS 08/07/22 08/07/22 History Allergies Allergy/AdvReac Type Severity Reaction Status Date / Time ibuprofen Allergy Rash/Hives Verified 08/07/22 11:38 Physical Exam Vitals: Vital Signs Temp Pulse Resp BP Pulse Ox 08/07/22 11:10 50 L 16 102/76 95 08/07/22 10:07 45 L 16 107/74 100 08/07/22 08:37 98 F 50 L 18 97/56 100 Intake and Output 08/06/22 08/07/22 08/07/22 22:59 06:59 14:59 Other: Weight 73.482 kg Results 08/07/22 09:05 08/07/22 09:05 Cardiac Enzymes 08/07/22 08/07/22 Range/Units 09:05 09:05 AST 321 H (17-59) U/L Troponin I <0.012 (0.000-0.034) ng/mL Coagulation 08/07/22 Range/Units 09:05 PT 10.7 (9.0-12.0) sec APTT 26.0 (22.0-30.0) sec CBC 08/07/22 Range/Units 09:05 WBC 5.7 (3.8-10.6) k/uL RBC 4.19 L (4.30-5.90) m/uL Hgb 13.3 (13.0-17.5) gm/dL Hct 38.7 L (39.0-53.0) % Plt Count 266 (150-450) k/uL Comprehensive Metabolic Panel 08/07/22 Range/Units 09:05 Sodium 137 (137-145) mmol/L Potassium 4.2 (3.5-5.1) mmol/L Chloride 105 (98-107) mmol/L Carbon Dioxide 26 (22-30) mmol/L BUN 17 (9-20) mg/dL Creatinine 0.91 (0.66-1.25) mg/dL Glucose 88 (74-99) mg/dL Calcium 8.9 (8.4-10.2) mg/dL AST 321 H (17-59) U/L ALT 528 H (4-49) U/L Alkaline Phosphatase 126 (38-126) U/L Total Protein 6.9 (6.3-8.2) g/dL Albumin 3.8 (3.5-5.0) g/dL Current Medications Generic Name Dose Route Start Last Admin Trade Name Freq PRN Reason Stop Dose Admin Ketorolac Tromethamine 15 mg 08/07/22 12:01 Ketorolac 15 Mg/Ml 1 Ml Vial IVP 08/10/22 12:02 Q6HR PRN Moderate Pain (Scale 4 to 6) Naloxone HCl 0.2 mg 08/07/22 12:01 Naloxone 0.4 Mg/Ml 1 Ml Vial IV Q2M PRN Opioid Reversal Ondansetron HCl 4 mg 08/07/22 12:01 Ondansetron 4 Mg/2 Ml Vial IVP Q8HR PRN Nausea And Vomiting Pantoprazole Sodium 40 mg 08/08/22 09:00 Pantoprazole 40 Mg/10 Ml Vial IV DAILY DENA Intake and Output 08/06/22 08/07/22 08/07/22 22:59 06:59 14:59 Other: Weight 73.482 kg Patient Weight 08/08/22 06:59 Weight 73.482 kg 08/07/22 09:05 08/07/22 09:05
[2022-08-07] MEDS ORDERED: LORazepam 0.5 MG TAB PO PRN (14:07)
--- NOTE | 2022-08-08 00:15 | HP ---
HISTORY AND PHYSICAL CHIEF COMPLAINT: Syncope. HISTORY OF PRESENT ILLNESS: This is a 47-year-old gentleman with a past medical history of multiple medical problems including polysubstance abuse including cocaine, and hepatitis B and C, was admitted into [facility] for the last 3 days for the rehab. In the rehab, the patient had passed out and the patient was taken to [facility], was found to have bradycardia, which is in and out and the patient was admitted for further evaluation and treatment. Possibility of orthostatic hypotension also being considered. There is no history of any fever, rigors, or chills at this time. A 12-lead EKG redemonstrated bradycardia, heart rate around 45. There is no history of any fever, rigors, or chills at this time. PAST MEDICAL HISTORY: History of polysubstance abuse. The rest of the history and rest of the chart is also reviewed. HOME MEDICATIONS: Reviewed include trazodone, dose and rest of medications reviewed. ALLERGIES: Ibuprofen. FAMILY HISTORY: No history of heart disease or strokes in the family. SOCIAL HISTORY: Polysubstance including alcohol, cocaine, marijuana, prescription drug abuse. REVIEW OF SYSTEMS: A 14-point review of systems is negative except as mentioned earlier. PHYSICAL EXAMINATION: VITAL SIGNS: Pulse is 50, blood pressure 100/76, respirations 16. HEENT: Conjunctivae normal. NECK: No JVD. CARDIOVASCULAR: S1, S2. RESPIRATIONS: Breath sounds diminished at the bases. ABDOMEN: Soft, nontender. LEGS: No edema. NERVOUS SYSTEM: No focal deficits. SKIN: No ulcer, rash, or bleeding. JOINTS: No active deforming arthropathy. LABS: Reviewed. ASSESSMENT: 1. Syncope possibly symptomatic bradycardia. 2. Rule out orthostatic hypotension. 3. Elevated AST, ALT, mild hepatitis. 4. Polysubstance abuse. RECOMMENDATIONS AND DISCUSSION: In this 47-year-old gentleman who presented with multiple complex medical issues, we will monitor the patient closely. Gently hydrate the patient. Telemetry. Cardiology consultation. 2-D echo with Doppler. Prognosis guarded because of multiple complex medical issues. Further recommendations to follow. MMODL / IJN: [id number] /
[2022-08-08 08:04] LABS: African American GFR (CKD) >90 (>60 ml/min/1.73 sqM); Albumin 3.5 g/dL (3.5-5.0); Anion Gap 3 mmol/L; Carbon Dioxide 30 mmol/L (22-30); Chloride 105 mmol/L (98-107); Glucose 72 mg/dL (74-99); Non-African American GFR(CKD) >90 (>60 ml/min/1.73 sqM); Potassium 4.4 mmol/L (3.5-5.1); Sodium 138 mmol/L (137-145); Total Protein 6.3 g/dL (6.3-8.2)
[2022-08-08 08:05] LABS: ALT 486 U/L (4-49); AST 297 U/L (17-59); Alkaline Phosphatase 123 U/L (38-126); Blood Urea Nitrogen 11 mg/dL (9-20); Calcium 8.7 mg/dL (8.4-10.2); Total Bilirubin 0.6 mg/dL (0.2-1.3)
[2022-08-08 08:41] LABS: Basophils # (A) 0.1 k/uL (0-0.2); Basophils % (A) 1 %; Eosinophils # (A) 0.2 k/uL (0-0.7); Eosinophils % (A) 3 %; HCT 39.5 % (39.0-53.0); HGB 13.6 gm/dL (13.0-17.5); Lymphocytes # (A) 1.9 k/uL (1.0-4.8); Lymphocytes % (A) 36 %; MCH 32.3 pg (25.0-35.0); MCHC 34.5 g/dL (31.0-37.0); MCV 93.7 fL (80.0-100.0); Mean Platelet Volume 8.2; Monocytes # (A) 0.5 k/uL (0-1.0); Monocytes % (A) 9 %; Neutrophils # (A) 2.5 k/uL (1.3-7.7); Neutrophils % (A) 48 %; Platelet Count 265 k/uL (150-450); RBC 4.21 m/uL (4.30-5.90); WBC 5.3 k/uL (3.8-10.6)
[2022-08-08] MEDS: HEPARIN SODIUM,PORCINE/PF 5,000 UNIT/0.5 ML SYRINGE SQ SCH ×2 (08:58→09:06)
[2022-08-08] MEDS ORDERED: PANTOPRAZOLE 40 MG/10 ML VIAL IV SCH (09:00)
[2022-08-08] MEDS ORDERED: SODIUM CHLORIDE 0.9% 500 ML 500 ML IV ONE (10:51)
[2022-08-08] MEDS: buPROPion XL 150 MG TAB.ER.24H PO SCH (11:10)
[2022-08-08] MEDS: SODIUM CHLORIDE 0.9% 1,000 ML IV SCH (12:23)
[2022-08-08] MEDS: MIDODRINE 5 MG TAB PO SCH ×2 (12:23→16:30)
--- NOTE | 2022-08-08 13:30 | P.CNNES ---
History of Present Illness Consult date: 08/08/22 Requesting physician: Francoise Rosenbaum Reason for Consult: Syncope History of Present Illness: Patient is a 47-year-old male came to the hospital by ambulance yesterday at 8:30 AM As per EMS flow sheet, they were called for patient hypotension and a fall. When they arrived patient was seated in the chair in nurse's office. Patient mentioned that he felt dizzy and passed out in his room for an unknown. Of time. The event was unwitnessed. Patient denied chest pain, difficulty breathing, nausea vomiting. Patient stated that he still has some transient vertigo. Patient had a half inch hematoma to his occipital region without active bleeding. Patient mentioned that he has been recently diagnosed with hepatitis C in 2 weeks ago. His blood sugar was 162 mg/dL, saturation 100% on room air. He was ambulate to the stretcher. EKG shows sinus bradycardia without ectopy. Blood pressure was 106/61 pulse rate 52 respiration 14 saturation 100%. Blood test shows normal WBC 1113.3, normal platelets. PT/PTT normal. Chem-20 is significant for elevated liver enzymes with AST 321, ALT 528. Amylase lipase and TSH are normal. UA negative. Urine drug screen positive for barbiturate, benzodiazepine, cocaine and marijuana. CT head showed no acute fracture or dislocation evident in the cervical spine. No acute intracranial hemorrhage or midline shift. Chest x-ray is normal, EKG shows sinus bradycardia with heart rate 45. Gallbladder ultrasound normal. Patient currently takes Abilify 5 mg at bedtime, multivitamin, Wellbutrin XL 150 mg daily, trazodone 100 mg at bedtime. Past Medical History Past Medical History: No Reported History Additional Past Medical History / Comment(s): HEP B, HEP C History of Any Multi-Drug Resistant Organisms: None Reported Past Surgical History: Ear Surgery Additional Past Surgical History / Comment(s): Tubes in bilat ears as a child Past Psychological History: No Psychological Hx Reported Smoking Status: Current every day smoker Past Alcohol Use History: Abuse, Daily, Heavy Past Drug Use History: Cocaine, Marijuana, Prescription Drug Abuse - Past Family History Mother Family Medical History: No Reported History Father Family Medical History: Chest Pain / Angina Medications and Allergies Home Medications Medication Instructions Recorded Confirmed Type ARIPiprazole [Abilify] 5 mg PO HS 08/07/22 08/07/22 History Multivitamins, Thera [Multivitamin 1 tab PO DAILY 08/07/22 08/07/22 History (formulary)] buPROPion HCL [buPROPion HCL Xl] 150 mg PO DAILY 08/07/22 08/07/22 History traZODone HCL [Desyrel] 100 mg PO HS 08/07/22 08/07/22 History Allergies Allergy/AdvReac Type Severity Reaction Status Date / Time ibuprofen Allergy Rash/Hives Verified 08/07/22 11:38 Physical Examination - Vital Signs Vital Signs: Vital Signs Temp Pulse Pulse Pulse Pulse Pulse Resp 08/08/22 11:06 56 L 16 08/08/22 08:59 97.9 F 70 65 62 18 08/08/22 04:00 97.8 F 57 L 16 08/08/22 02:00 45 L 57 L 53 L 53 L 16 08/08/22 00:00 98.0 F 53 L 16 08/07/22 21:37 97.1 F L 45 L 57 L 53 L 45 L 16 08/07/22 20:59 50 L 16 08/07/22 17:32 64 18 08/07/22 17:30 47 L 18 08/07/22 17:28 43 L 18 08/07/22 16:00 48 L 16 BP BP BP BP Pulse Ox 08/08/22 11:06 93/51 98 08/08/22 08:59 100/55 97/68 118/58 98 08/08/22 04:00 101/57 97 08/08/22 02:00 08/08/22 00:00 113/70 100 08/07/22 21:37 111/58 107/66 102/56 99 08/07/22 20:59 104/65 100 08/07/22 17:32 109/75 100 08/07/22 17:30 108/67 100 08/07/22 17:28 108/62 100 08/07/22 16:00 102/76 99 Intake and Output 08/07/22 08/08/22 08/08/22 22:59 06:59 14:59 Intake Total 118 Balance 118 Intake: Oral 118 Other: Voiding Method Toilet Toilet Toilet Urinal Urinal Urinal # Voids 1 1 Weight 73.482 kg Results - Laboratory Findings CBC and BMP: 08/08/22 06:31 08/08/22 06:31 Abnormal Lab Findings: Abnormal Labs 08/07/22 08/07/22 08/07/22 09:05 09:05 11:13 RBC 4.19 L Hct 38.7 L Glucose AST 321 H ALT 528 H Ur Barbiturates Screen Detected H U Benzodiazepines Scrn Detected H Urine Cocaine Screen Detected H U Marijuana (THC) Screen Detected H 08/08/22 08/08/22 06:31 06:31 RBC 4.21 L Hct Glucose 72 L AST 297 H ALT 486 H Ur Barbiturates Screen U Benzodiazepines Scrn Urine Cocaine Screen U Marijuana (THC) Screen Assessment and Plan Assessment: * Syncopal spell, possibly vasovagal versus arrhythmia. Patient had no postictal state, therefore unlikely to be seizure. * Bradycardia * Polysubstance abuse * Alcoholism * Cocaine use * Marijuana use * Tobacco use * Recent diagnosis of hepatitis C Plan: * Neurologically no other workup indicated. Event was most likely syncopal versus arrhythmia. * Cardiology on board rule out arrhythmia. * Patient recommended to abstain from polysubstance use. * Patient is taking Wellbutrin, which can lower seizure threshold. Recommended patient to discuss with the psychiatrist to consider switching to alternate medication. * Neurologically clear. Thank you for the consult.
--- NOTE | 2022-08-08 14:09 | P.PN ---
Subjective Progress Note Date: 08/08/22 PROGRESS NOTE The patient is a 47-year-old male with a known history of chronic tobacco use, prior history of alcohol and cocaine use who was admitted from [facility] after syncopal episode. He got up this morning felt dizzy and passed out for a few seconds. He had no associated chest discomfort, palpitations or change in his breathing. He is not very active physically pending his routine physical activity he denies any symptoms. He has used cocaine and alcohol for about 5 years but has been at [facility] for the last few days. In the emergency room he was noted to have sinus bradycardia but no pauses. When I saw him he was sleeping he had sinus bradycardia that returned to normal rate in the 70s when he woke up. He has no prior syncopal episode. He has no history of PND, orthopnea or peripheral edema. He smokes about a pack a day. He has no history of hypertension, hyperlipidemia or diabetes. He has a family history of cardiac disease in his brother. August 08 The patient feels well today, he had no episodes of dizziness or syncope. He has been ambulating without difficulties. He denies any chest discomfort, dizziness or palpitations. He had no significant bradycardia arrhythmia. His echocardiogram is pending. Medications: Wellbutrin Abilify PHYSICAL EXAMINATION: Blood pressure 100/50 heart rate 60 LUNGS: Clear to auscultation HEART: Regular rate and rhythm, S1, S2. No S3. No systolic murmur ABDOMEN: Soft, nontender, no organomegaly EXTREMETIES: No edema LAB: Potassium 4.4, BUN 11, creatinine 0.9 IMPRESSION: 1. Syncopal episode probable orthostatic 2. History of chronic tobacco use 3. History of alcohol abuse 4. History of drug abuse PLAN: 1. Review the echocardiogram, if there is no evidence of significant abnormalities then no further cardiac workup would be needed 2. Increase physical activity and if blood pressure is stable, stop midodrine Objective - Vital Signs Vital signs: Vital Signs Temp 97.9 F 08/08/22 08:59 Pulse 56 L 08/08/22 13:26 Resp 16 08/08/22 11:06 BP 93/51 08/08/22 11:06 Pulse Ox 98 08/08/22 11:06 FiO2 Intake & Output 08/07/22 08/08/22 08/08/22 18:59 06:59 18:59 Intake Total 118 Balance 118 Weight 73.482 kg 73.482 kg Intake: Oral 118 Other: Voiding Method Toilet Toilet Urinal Urinal # Voids 1 3 - Labs CBC & Chem 7: 08/08/22 06:31 08/08/22 06:31 Labs: Abnormal Lab Results - Last 24 Hours (Table) 08/08/22 08/08/22 Range/Units 06:31 06:31 RBC 4.21 L (4.30-5.90) m/uL Glucose 72 L (74-99) mg/dL AST 297 H (17-59) U/L ALT 486 H (4-49) U/L
--- NOTE | 2022-08-08 17:39 | CA ---
Transthoracic Echo Report Name: Willie Florez Age: 47 Gender: M : 1975 Exam Date: 08/08/2022 16:07 Exam Location: [facility] Ht (in): 62 Wt (lb): 162 Ordering Physician: Michi James MD ([id number]) Attending/Referring Phys: Petrophysicist Shreya Pate RDCS Procedure CPT: Indications: Syncope Cardiac Hx: Technical Quality: Contrast 1: Total Dose (mL): Contrast 2: Total Dose (mL): MEASUREMENTS (Male / Female) Normal Values DOPPLER AV Peak Velocity 134.4 cm/s AV Peak Gradient 7.2 mmHg MV Area PHT 4.5 cm??? Mitral E Point Velocity 89.0 cm/s Mitral A Point Velocity 44.5 cm/s Mitral E to A Ratio 2.0 MV Deceleration Time 169.3 ms MV E' Velocity 11.0 cm/s Mitral E to MV E' Ratio 8.1 FINDINGS Left Ventricle Left ventricular ejection fraction is estimated at 55 %. Normal left ventricular wall motion. Right Ventricle Normal right ventricular size and function. Right ventricular systolic pressure within normal limits. Right Atrium Normal right atrial size. Left Atrium Normal left atrial size. Mitral Valve Structurally normal mitral valve. Mild mitral regurgitation. Aortic Valve Trileaflet aortic valve. Tricuspid Valve Structurally normal tricuspid valve. Pulmonic Valve Structurally normal pulmonic valve. Pericardium Normal pericardium. Aorta Normal size aortic root and proximal ascending aorta. CONCLUSIONS Normal LV systolic function Previewed by: Dr. Dheeraj Putnam MD (Electronically Signed) Final Date: 08 August 2022 17:38
[2022-08-08] MEDS: NICOTINE 21MG/24HR PATCH TRANSDERM SCH (18:24)
[2022-08-08] MEDS ORDERED: ARIPiprazole 5 MG TAB PO SCH (21:00)
[2022-08-08] MEDS ORDERED: traZODone HCL 100 MG TAB PO SCH (21:00)
[2022-08-09] MEDS: HEPARIN SODIUM,PORCINE/PF 5,000 UNIT/0.5 ML SYRINGE SQ SCH ×2 (05:20→08:28)
--- NOTE | 2022-08-09 06:52 | PN ---
PROGRESS NOTE DATE OF SERVICE: 08/08/2022 SUBJECTIVE: This is a 47-year-old gentleman admitted with syncope, also had significant bradycardia. The patient also found to be orthostatically hypotensive. [facility]. The patient had history of extensive polysubstance abuse including cocaine. OBJECTIVE: VITAL SIGNS: Pulse is 70, blood pressure is 100/55, orthostatically positive as mentioned earlier from 118 systolic to 97 systolic. HEENT: Conjunctivae normal. NECK: No JVD. CARDIOVASCULAR: S1, S2, bradycardic. ABDOMEN: Soft. NERVOUS SYSTEM: No focal deficits. LABS: Reviewed. ASSESSMENT: 1. Syncope, possibly orthostatic hypotension. 2. Possible symptomatic bradycardia. 3. Elevated AST, ALT, mild hepatitis, possibly substance abuse related. 4. Polysubstance abuse. RECOMMENDATIONS: Recommend to continue current management and symptomatic treatment. I would recommend a bolus and continue with IV fluids. Repeat labs tomorrow. Midodrine. Closely follow with Cardiology. Guarded prognosis. Further recommendations to follow. MMODL / IJN: [id number] /
[2022-08-09 06:55] VITALS: RESP 16
[2022-08-09] MEDS: MIDODRINE 5 MG TAB PO SCH (06:56)
[2022-08-09] MEDS: SODIUM CHLORIDE 0.9% 1,000 ML IV SCH ×2 (07:15→11:01)
[2022-08-09] MEDS ORDERED: PANTOPRAZOLE 40 MG TABLET PO SCH (07:30)
[2022-08-09 07:40] LABS: Basophils % (A) 1 %; Eosinophils # (A) 0.1 k/uL (0-0.7); Eosinophils % (A) 2 %; HCT 41.1 % (39.0-53.0); HGB 13.6 gm/dL (13.0-17.5); Lymphocytes # (A) 1.9 k/uL (1.0-4.8); Lymphocytes % (A) 34 %; MCH 31.8 pg (25.0-35.0); MCHC 33.2 g/dL (31.0-37.0); MCV 95.8 fL (80.0-100.0); Monocytes # (A) 0.5 k/uL (0-1.0); Monocytes % (A) 9 %; Neutrophils # (A) 2.8 k/uL (1.3-7.7); Neutrophils % (A) 50 %; Platelet Count 281 k/uL (150-450); RBC 4.29 m/uL (4.30-5.90); RDW 12.9 % (11.5-15.5); WBC 5.6 k/uL (3.8-10.6)
[2022-08-09 07:52] LABS: ALT 522 U/L (4-49); AST 346 U/L (17-59); African American GFR (CKD) >90 (>60 ml/min/1.73 sqM); Albumin 3.5 g/dL (3.5-5.0); Alkaline Phosphatase 118 U/L (38-126); Anion Gap 1 mmol/L; Blood Urea Nitrogen 12 mg/dL (9-20); Calcium 8.8 mg/dL (8.4-10.2); Carbon Dioxide 29 mmol/L (22-30); Chloride 107 mmol/L (98-107); Glucose 75 mg/dL (74-99); Non-African American GFR(CKD) 89 (>60 ml/min/1.73 sqM); Potassium 4.9 mmol/L (3.5-5.1); Sodium 137 mmol/L (137-145); Total Bilirubin 0.6 mg/dL (0.2-1.3); Total Protein 6.4 g/dL (6.3-8.2)
[2022-08-09] MEDS: buPROPion XL 150 MG TAB.ER.24H PO SCH (08:39)
[2022-08-09] MEDS: NICOTINE 21MG/24HR PATCH TRANSDERM SCH (08:39)
[2022-08-09 08:42] VITALS: TEMP 98
[2022-08-09] MEDS ORDERED: MULTIVITAMINS, THERA 1 EACH TAB PO SCH (09:00)
--- NOTE | 2022-08-09 10:07 | P.PN ---
Subjective Progress Note Date: 08/09/22 PROGRESS NOTE The patient is a 47-year-old male with a known history of chronic tobacco use, prior history of alcohol and cocaine use who was admitted from [facility] after syncopal episode. He got up this morning felt dizzy and passed out for a few seconds. He had no associated chest discomfort, palpitations or change in his breathing. He is not very active physically pending his routine physical activity he denies any symptoms. He has used cocaine and alcohol for about 5 years but has been at [facility] for the last few days. In the emergency room he was noted to have sinus bradycardia but no pauses. When I saw him he was sleeping he had sinus bradycardia that returned to normal rate in the 70s when he woke up. He has no prior syncopal episode. He has no history of PND, orthopnea or peripheral edema. He smokes about a pack a day. He has no history of hypertension, hyperlipidemia or diabetes. He has a family history of cardiac disease in his brother. August 08 The patient feels well today, he had no episodes of dizziness or syncope. He has been ambulating without difficulties. He denies any chest discomfort, dizziness or palpitations. He had no significant bradycardia arrhythmia. His echocardiogram is pending. August 09: He is feeling well today, he has minimal dizziness on change of position. He denies any palpitations or syncope. He has sinus tachycardia during the night, asymptomatic. His echocardiogram showed a normal systolic function with no segmental wall motion abnormality. Medications: Wellbutrin Abilify, midodrine PHYSICAL EXAMINATION: Blood pressure 102/50 with no orthostatic changes heart rate 50-60 LUNGS: Clear to auscultation HEART: Regular rate and rhythm, S1, S2. No S3. No systolic murmur ABDOMEN: Soft, nontender, no organomegaly EXTREMETIES: No edema LAB: Potassium 4.9, BUN 12, creatinine 1.01 IMPRESSION: 1. Syncopal episode probable orthostatic 2. History of chronic tobacco use 3. History of alcohol abuse 4. History of drug abuse 5. Sinus bradycardia asymptomatic PLAN: 1. Increase physical activity 2. Stop midodrine 3. Follow-up as an outpatient and possible discharge home today. Objective - Vital Signs Vital signs: Vital Signs Temp 98.0 F 08/09/22 08:27 Pulse 48 L 08/09/22 08:27 Resp 16 08/09/22 08:27 BP 107/59 08/09/22 08:27 Pulse Ox 97 08/09/22 08:27 FiO2 Intake & Output 08/08/22 08/09/22 08/09/22 18:59 06:59 18:59 Intake Total 118 240 Balance 118 240 Intake: Oral 118 240 Other: Voiding Method Toilet Toilet Toilet Urinal Urinal Urinal # Voids 3 1 - Labs CBC & Chem 7: 08/09/22 06:45 08/09/22 06:45 Labs: Abnormal Lab Results - Last 24 Hours (Table) 08/09/22 08/09/22 Range/Units 06:45 06:45 RBC 4.29 L (4.30-5.90) m/uL AST 346 H (17-59) U/L ALT 522 H (4-49) U/L
[2022-08-09 11:36] VITALS: BP 108/55; PULSE 45
--- NOTE | 2022-08-09 15:23 | DS ---
DISCHARGE SUMMARY FINAL DIAGNOSES: 1. Syncope, possible orthostatic hypotension. 2. Possible symptomatic bradycardia. 3. Elevated AST, ALT, mild hepatitis, possibly substance abuse related. 4. Polysubstance abuse history. DISCHARGE DISPOSITION: The patient will be discharged in stable condition with guarded prognosis. HISTORY OF PRESENT ILLNESS: This 47-year-old gentleman with past medical history, admitted with syncope, referred from [facility], bradycardia was noted, which was found to be nonmalignant by Cardiology. Cardiology and Neurology cleared the patient for discharge. The patient will be discharged in stable condition with guarded prognosis. PHYSICAL EXAMINATION: VITAL SIGNS: Stable. CARDIOVASCULAR: S1, S2. ABDOMEN: Soft. NERVOUS SYSTEM: n DISCHARGE ADVICE AND MEDICATIONS: Resume the home medications plus t.i.d. for 3 days and also increase p.o. fluids and increase p.o. salt intake, and closely follow with the primary physician in the outpatient setting, medically cleared for inpatient rehab. MMFLO / MALATHI: [id number] / VY
== END 2022-08-09 14:59 | disposition home or self-care (01) | DRG 312 ==
LOC: EC 08:30 → 3SCARD 11:40
PROVIDERS: ADMIT Hospitalist; ATTEND Hospitalist
DX: I95.1 Orthostatic hypotension (principal); B19.10 Unspecified viral hepatitis B without hepatic coma; B19.20 Unspecified viral hepatitis C without hepatic coma; F10.20 Alcohol dependence, uncomplicated; F12.10 Cannabis abuse, uncomplicated; R00.0 Tachycardia, unspecified; F14.10 Cocaine abuse, uncomplicated; F17.210 Nicotine dependence, cigarettes, uncomplicated; Z79.899 Other long term (current) drug therapy; Z95.0 Presence of cardiac pacemaker; Z82.49 Family history of ischemic heart disease and other diseases of the circulatory system; Z88.6 Allergy status to analgesic agent; I34.0 Nonrheumatic mitral (valve) insufficiency; R00.1 Bradycardia, unspecified
CPT/HCPCS: 36415; 70450; 71046; 72125; 76705; 80053; 80306; 81003; 82150; 83690; 83735; 84443; 84484; 85025; 85379; 85610; 85730; 93005; 93306; 96374; 99285

== ENCOUNTER 2022-09-07 01:56 | Inpatient (IN) | payer OTHER ==
[2022-09-07] MEDS ORDERED: SODIUM CHLORIDE 0.9% 1,000 ML IV STA (02:26)
--- NOTE | 2022-09-07 02:26 | ED ---
Arrhythmia/Palpitations HPI - General Chief Complaint: Arrhythmia/Palpitations Stated Complaint: chest pain Time Seen by Provider: 09/07/22 02:05 Source: patient, RN notes reviewed, old records reviewed Mode of arrival: ambulatory Limitations: no limitations - History of Present Illness Initial Comments: This is a 47-year-old male to the emergency department for evaluation. Patient was sitting at the bar having a couple drinks and did have a cigarette when he became very lightheaded dizzy felt like his heart was flip-flopping and fell using a pass out. He became very sweaty and short of breath. Patient does have history of his the past and states he does have not have heart history. Patient takes no medications does not have high blood pressure high cholesterol or diabetes. Patient's dad suffered a cardiac definitely young age MD Complaint: rapid heart beat, "heart racing" -: hour(s) Arrhythmia History: other (Strong family history of heart disease brother does have pacer and defibrillator) Associated Symptoms: chest pain, shortness of breath, near-syncope, anxiety Treatments Prior to Arrival: other (0) - Related Data Home Medications Medication Instructions Recorded Confirmed ARIPiprazole [Abilify] 5 mg PO HS 08/07/22 08/07/22 Multivitamins, Thera [Multivitamin 1 tab PO DAILY 08/07/22 08/07/22 (formulary)] buPROPion HCL [buPROPion HCL Xl] 150 mg PO DAILY 08/07/22 08/07/22 traZODone HCL [Desyrel] 100 mg PO HS 08/07/22 08/07/22 Previous Rx's Medication Instructions Recorded Meclizine [Antivert] 6.25 mg PO Q8HR #9 tablet 08/09/22 Allergies Allergy/AdvReac Type Severity Reaction Status Date / Time ibuprofen Allergy Rash/Hives Verified 08/07/22 11:38 Review of Systems ROS Statement: Those systems with pertinent positive or pertinent negative responses have been documented in the HPI. ROS Other: All systems not noted in ROS Statement are negative. Past Medical History Past Medical History: No Reported History Additional Past Medical History / Comment(s): HEP B, HEP C, abnormal heart beat History of Any Multi-Drug Resistant Organisms: None Reported Past Surgical History: Ear Surgery Additional Past Surgical History / Comment(s): Tubes in bilat ears as a child Past Psychological History: No Psychological Hx Reported Smoking Status: Current every day smoker Past Alcohol Use History: Abuse, Daily, Heavy Past Drug Use History: Cocaine, Marijuana, Prescription Drug Abuse - Past Family History Mother Family Medical History: No Reported History Father Family Medical History: Chest Pain / Angina General Exam General appearance: alert, in no apparent distress, anxious Head exam: Present: atraumatic, normocephalic, normal inspection Eye exam: Present: normal appearance, PERRL, EOMI. Absent: scleral icterus, conjunctival injection, periorbital swelling ENT exam: Present: normal exam, mucous membranes moist Neck exam: Present: normal inspection. Absent: tenderness, meningismus, lymphadenopathy Respiratory exam: Present: normal lung sounds bilaterally. Absent: respiratory distress, wheezes, rales, rhonchi, stridor Cardiovascular Exam: Present: normal rhythm, tachycardia, normal heart sounds. Absent: systolic murmur, diastolic murmur, rubs, gallop, clicks GI/Abdominal exam: Present: soft, normal bowel sounds. Absent: distended, tenderness, guarding, rebound, rigid Extremities exam: Present: normal inspection, full ROM, normal capillary refill. Absent: tenderness, pedal edema, joint swelling, calf tenderness Back exam: Present: normal inspection Neurological exam: Present: alert, oriented X3, CN II-XII intact Psychiatric exam: Present: normal affect, normal mood Skin exam: Present: warm, dry, intact, normal color. Absent: rash Course Vital Signs 09/07/22 02:00 Temperature 98 F Pulse Rate 103 H Respiratory 17 Rate Blood Pressure 110/57 O2 Sat by Pulse 99 Oximetry - Reevaluation(s) Reevaluation #1: 09/07/22 02:34 Medical record is reviewed Reevaluation #2: 09/07/22 03:17 Patient continues to improve here in the ER Reevaluation #3: 09/07/22 03:17 Patient informed results and questions answered Reevaluation #4: 09/07/22 02:36 Differential Chest Pain: Stable Angina, Unstable Angina, STEMI, NSTEMI Aortic Dissection, Pneumothorax, Musculoskeletal, Esophageal Spasm GERD, Cholecystitis, Pancreatitis, Zoster, this is not meant to be an all-inclusive list. Reevaluation #5: 09/07/22 02:36 Was pt. sent in by a medical professional or institution? @ -no Did you speak to anyone other than the patient for history? @ -no Did you review nursing and triage notes? @ -agree Were old charts reviewed? @ -yes and prior EKGs Differential Diagnosis? @ -prior EKG interpreted by me (3pts min.)? @ -yes X-rays interpreted by me (1pt min.)? @ -[none] CT interpreted by me (1pt min.)? @ -[none] U/S interpreted by me (1pt. min.)? @ -[none] What testing was considered but not performed? (CT, X-rays, U/S, labs)? Why? @ no What meds were considered but not given? Why? @ -[none] Did you discuss the management of the patient with other professionals? @ -no Did you reconcile home meds? @ -[none] Was smoking cessation discussed for >3mins.? @ -[none] Was critical care preformed (if so, how long)? @ -[none] Were there social determinants of health that impacted care today? How? (Fabien elessness, low income, unemployed, alcoholism, drug addiction, transportation, low edu. Level, literacy, decrease access to med. care, long term, rehab)? @ -no Was there de-escalation of care discussed even if they declined? (Discuss DNR or withdrawal of care, Hospice)? @ -no What co-morbidities impacted this encounter? (DM, HTN, Smoking, COPD, CAD, Cancer, CVA, Hep., AIDS, mental health diagnosis, sleep apnea, morbid obesity)? @ -no Was patient admitted / discharged? @ -admit Undiagnosed new problem with uncertain prognosis? @ -[none] Drug Therapy requiring intensive monitoring for toxicity (Heparin, Nitro, Insulin, Cardizem)? @ -[none] Were any procedures done? @ -[none] Diagnosis/symptom? @ -[default] Acute, or Chronic, or Acute on Chronic? @ -[default] Uncomplicated (without systemic symptoms) or Complicated (systemic symptoms)? @ -[default] Side effects of treatment? @ -[none] Exacerbation, Progression, or Severe Exacerbation] @ -[no] Poses a threat to life or bodily function? @ -[no] - Consultations Consultation #1: Spoke with on-call cardiology regarding with thoughts of positive Brugada syndrome and was not ST elevated MN, there is agreement Medical Decision Making - Medical Decision Making 47 male to the emergency department for evaluation, patient has arrhythmia near syncopal event lightheadedness dizziness and sweating. Patient has strong history of family heart disease. Sudden and dad pacemaker and brother as well as the fibular. Patient presents today for chest pain near syncopal event. Questionable Brugada syndrome on EKG. Patient will admit for cardiology to see and evaluate - Lab Data Result diagrams: 09/07/22 02:31 09/07/22 02:28 Lab Results 09/07/22 09/07/22 09/07/22 Range/Units 02:28 02:28 02:31 WBC 6.2 (3.8-10.6) k/uL RBC 4.34 (4.30-5.90) m/uL Hgb 13.8 (13.0-17.5) gm/dL Hct 40.2 (39.0-53.0) % MCV 92.4 (80.0-100.0) fL MCH 31.8 (25.0-35.0) pg MCHC 34.4 (31.0-37.0) g/dL RDW 13.1 (11.5-15.5) % Plt Count 285 (150-450) k/uL MPV 7.0 Neutrophils % 51 % Lymphocytes % 33 % Monocytes % 8 % Eosinophils % 4 % Basophils % 1 % Neutrophils # 3.2 (1.3-7.7) k/uL Lymphocytes # 2.1 (1.0-4.8) k/uL Monocytes # 0.5 (0-1.0) k/uL Eosinophils # 0.2 (0-0.7) k/uL Basophils # 0.1 (0-0.2) k/uL PT (9.0-12.0) sec INR (<1.2) APTT (22.0-30.0) sec Sodium 140 (137-145) mmol/L Potassium 3.9 (3.5-5.1) mmol/L Chloride 108 H (98-107) mmol/L Carbon Dioxide 24 (22-30) mmol/L Anion Gap 8 mmol/L BUN 14 (9-20) mg/dL Creatinine 0.86 (0.66-1.25) mg/dL Est GFR (CKD-EPI)AfAm >90 (>60 ml/min/1.73 sqM) Est GFR (CKD-EPI)NonAf >90 (>60 ml/min/1.73 sqM) Glucose 105 H (74-99) mg/dL Calcium 9.2 (8.4-10.2) mg/dL Phosphorus 3.6 (2.5-4.5) mg/dL Magnesium 1.9 (1.6-2.3) mg/dL Total Bilirubin 0.6 (0.2-1.3) mg/dL AST 294 H (17-59) U/L ALT 452 H (4-49) U/L Alkaline Phosphatase 100 (38-126) U/L Troponin I <0.012 (0.000-0.034) ng/mL Total Protein 7.1 (6.3-8.2) g/dL Albumin 3.9 (3.5-5.0) g/dL 09/07/22 Range/Units 02:31 WBC (3.8-10.6) k/uL RBC (4.30-5.90) m/uL Hgb (13.0-17.5) gm/dL Hct (39.0-53.0) % MCV (80.0-100.0) fL MCH (25.0-35.0) pg MCHC (31.0-37.0) g/dL RDW (11.5-15.5) % Plt Count (150-450) k/uL MPV Neutrophils % % Lymphocytes % % Monocytes % % Eosinophils % % Basophils % % Neutrophils # (1.3-7.7) k/uL Lymphocytes # (1.0-4.8) k/uL Monocytes # (0-1.0) k/uL Eosinophils # (0-0.7) k/uL Basophils # (0-0.2) k/uL PT 10.5 (9.0-12.0) sec INR 1.0 (<1.2) APTT 24.9 (22.0-30.0) sec Sodium (137-145) mmol/L Potassium (3.5-5.1) mmol/L Chloride (98-107) mmol/L Carbon Dioxide (22-30) mmol/L Anion Gap mmol/L BUN (9-20) mg/dL Creatinine (0.66-1.25) mg/dL Est GFR (CKD-EPI)AfAm (>60 ml/min/1.73 sqM) Est GFR (CKD-EPI)NonAf (>60 ml/min/1.73 sqM) Glucose (74-99) mg/dL Calcium (8.4-10.2) mg/dL Phosphorus (2.5-4.5) mg/dL Magnesium (1.6-2.3) mg/dL Total Bilirubin (0.2-1.3) mg/dL AST (17-59) U/L ALT (4-49) U/L Alkaline Phosphatase (38-126) U/L Troponin I (0.000-0.034) ng/mL Total Protein (6.3-8.2) g/dL Albumin (3.5-5.0) g/dL - EKG Data -: EKG Interpreted by Me (EKG is sinus rhythm 72 HI 169 QRS 113 QTC 393, evidence of a Brugada syndro) EKG shows normal: sinus rhythm (#2 EKG is sinus rhythm 79 HI 162 QRS 110 QTc 404) Rate: normal (#3 EKG is sinus rhythm 79 HI 160 QRS 14 QTC 389) Critical Care Time Critical Care Time: Yes Total Critical Care Time: 31 Disposition Clinical Impression: Syncope, Near syncope, Symptomatic bradycardia, Tachycardia, Palpitations Narrative: ?Brugada? Disposition: ADMITTED IP TO THIS [facility] Condition: Fair Is patient prescribed a controlled substance at d/c from ED?: No Referrals: None,Stated [Primary Care Provider] - 1-2 days Time of Disposition: 03:15
[2022-09-07 02:36] LABS: Basophils # (A) 0.1 k/uL (0-0.2); Basophils % (A) 1 %; Eosinophils # (A) 0.2 k/uL (0-0.7); Eosinophils % (A) 4 %; HCT 40.2 % (39.0-53.0); HGB 13.8 gm/dL (13.0-17.5); Lymphocytes # (A) 2.1 k/uL (1.0-4.8); Lymphocytes % (A) 33 %; MCH 31.8 pg (25.0-35.0); MCHC 34.4 g/dL (31.0-37.0); MCV 92.4 fL (80.0-100.0); Monocytes # (A) 0.5 k/uL (0-1.0); Monocytes % (A) 8 %; Neutrophils # (A) 3.2 k/uL (1.3-7.7); Neutrophils % (A) 51 %; Platelet Count 285 k/uL (150-450); RBC 4.34 m/uL (4.30-5.90); RDW 13.1 % (11.5-15.5); WBC 6.2 k/uL (3.8-10.6)
[2022-09-07 02:42] LABS: Partial Thromboplastin Time 24.9 sec (22.0-30.0); Prothrombin Time 10.5 sec (9.0-12.0)
[2022-09-07 02:45] LABS: Potassium 3.9 mmol/L (3.5-5.1)
[2022-09-07 02:46] LABS: ALT 452 U/L (4-49); AST 294 U/L (17-59); African American GFR (CKD) >90 (>60 ml/min/1.73 sqM); Albumin 3.9 g/dL (3.5-5.0); Alkaline Phosphatase 100 U/L (38-126); Anion Gap 8 mmol/L; Blood Urea Nitrogen 14 mg/dL (9-20); Calcium 9.2 mg/dL (8.4-10.2); Carbon Dioxide 24 mmol/L (22-30); Chloride 108 mmol/L (98-107); Glucose 105 mg/dL (74-99); Magnesium 1.9 mg/dL (1.6-2.3); Non-African American GFR(CKD) >90 (>60 ml/min/1.73 sqM); Phosphorus 3.6 mg/dL (2.5-4.5); Sodium 140 mmol/L (137-145); Total Bilirubin 0.6 mg/dL (0.2-1.3); Total Protein 7.1 g/dL (6.3-8.2)
[2022-09-07] MEDS ORDERED: NALOXONE 0.4 MG/ML 1 ML VIAL IV PRN (03:14)
[2022-09-07] MEDS ORDERED: ONDANSETRON 4 MG/2 ML VIAL IVP PRN (03:14)
[2022-09-07] MEDS ORDERED: MORPHINE SULFATE 4 MG/ML SYRINGE IVP STA (03:16)
[2022-09-07] MEDS: SODIUM CHLORIDE 0.9% 1,000 ML IV SCH ×2 (03:21→15:54)
[2022-09-07] MEDS: MORPHINE SULFATE 4 MG/ML SYRINGE IV PRN ×4 (08:38→21:36)
--- NOTE | 2022-09-07 12:32 | P.CRDCN ---
History of Present Illness Consult date: 09/07/22 History of present illness: This 47-year-old gentleman with a known history of hepatitis B, hepatitis C, abnormal heartbeat, history of alcohol abuse and drug abuse, including cocaine, marijuana, and prescription drugs. We have been asked to see the patient for chest pain and possible Brugada syndrome evaluation. Patient presented to the ER with chest pain. He reports he was at the bar having a few drinks after work when he started to develop chest pain. He folic his heart was throbbing. Troponins are negative 2. EKG shows sinus rhythm with ST elevation and septal injury, no change from prior EKG. Patient had an echocardiogram on 08/08/2022 which showed normal LV function. We'll repeat echocardiogram. Continue with current cardiac medications Review of Systems REVIEW OF SYSTEMS At the time of my exam: CONSTITUTIONAL: Denies fever or chills. EYES: Negative for vision changes ENT: Negative for hearing loss CARDIOVASCULAR: Denies chest pain, shortness of breath, diaphoresis, orthopnea, PND or palpitations. VASCULAR: Denies edema RESPIRATORY: Denies cough. GASTROINTESTINAL: Denies abdominal pain, diarrhea, constipation, nausea or vomiting. MUSCULOSKELETAL: Denies myalgias. NEUROLOGIC: Denies numbness, tingling, headache or weakness. ENDOCRINE: Denies fatigue, weight change, polydipsia or polyurina. GENITOURINARY: Denies burning, hematuria or urgency with micturation. HEMATOLOGIC: Denies history of anemia or bleeding. DERMATOLOGY: Denies rash or skin sores PSYCH: Negative for depression or hallucinations. Past Medical History Past Medical History: No Reported History Additional Past Medical History / Comment(s): HEP B, HEP C, abnormal heart beat History of Any Multi-Drug Resistant Organisms: None Reported Past Surgical History: Ear Surgery Additional Past Surgical History / Comment(s): Tubes in bilat ears as a child Past Psychological History: No Psychological Hx Reported Smoking Status: Current every day smoker Past Alcohol Use History: Abuse, Daily, Heavy Past Drug Use History: Cocaine, Marijuana, Prescription Drug Abuse - Past Family History Mother Family Medical History: No Reported History Father Family Medical History: Chest Pain / Angina Medications and Allergies Home Medications Medication Instructions Recorded Confirmed Type ARIPiprazole [Abilify] 5 mg PO HS 08/07/22 08/07/22 History Multivitamins, Thera [Multivitamin 1 tab PO DAILY 08/07/22 08/07/22 History (formulary)] buPROPion HCL [buPROPion HCL Xl] 150 mg PO DAILY 08/07/22 08/07/22 History traZODone HCL [Desyrel] 100 mg PO HS 08/07/22 08/07/22 History Meclizine [Antivert] 6.25 mg PO Q8HR #9 tablet 08/09/22 Rx Allergies Allergy/AdvReac Type Severity Reaction Status Date / Time ibuprofen Allergy Rash/Hives Verified 08/07/22 11:38 Physical Exam Vitals: Vital Signs Temp Pulse Pulse Resp BP BP Pulse Ox 09/07/22 11:57 16 105/56 98 09/07/22 08:37 98.1 F 61 18 94/54 98 09/07/22 03:45 98 F 63 16 103/65 99 09/07/22 03:02 58 L 16 103/74 98 09/07/22 02:00 98 F 103 H 17 110/57 99 Intake and Output 09/06/22 09/07/22 09/07/22 22:59 06:59 14:59 Intake Total 900 Output Total 500 Balance 400 Intake: Intake, IV Titration 900 Amount Sodium Chloride 0.9% 1, 900 000 ml @ 75 mls/hr IV . [id number] [facility] Rx#:[id number] Output: Urine 500 Other: Voiding Method Toilet # Voids 1 Weight 72.4 kg General: The patient is awake and alert, in no distress, and does not appear acutely ill. Skin: Skin is warm and dry and no rashes or lesions are noted. Eye: Pupils are equal, round and reactive to light, extra-ocular movements are intact; there is normal conjunctiva bilaterally. Ears, nose, mouth and throat: There are moist mucous membranes and no oral lesions. Neck: The neck is supple, there is no tenderness or JVD. Cardiovascular: There is regular rate and rhythm. No murmur, rub or gallop is appreciated. Respiratory: Lungs are clear to auscultation, respirations are non-labored, breath sounds are equal. Gastrointestinal: Soft, non-distended, non-tender abdomen without masses or organomegaly noted. There is no rebound or guarding present. Bowel sounds are unremarkable. Back: There is no tenderness to palpation in the midline. There is no obvious deformity. Musculoskeletal: Normal ROM, no tenderness, There is no pedal edema. There is no calf tenderness or swelling. Extremities: Mild bilateral pitting edema Vascular: Femoral pulse is normal. Posterior tibial pulses are normal .Dorsalis pedis is palpable. Neurological: CN II-XII intact. There are no obvious motor or sensory deficits. Speech is normal. Psychiatric: Cooperative, appropriate mood & affect, normal judgment Results 09/07/22 02:31 09/07/22 02:28 Cardiac Enzymes 09/07/22 09/07/22 09/07/22 Range/Units 02:28 02:28 09:09 AST 294 H (17-59) U/L Troponin I <0.012 <0.012 (0.000-0.034) ng/mL Coagulation 09/07/22 Range/Units 02:31 PT 10.5 (9.0-12.0) sec APTT 24.9 (22.0-30.0) sec CBC 09/07/22 Range/Units 02:31 WBC 6.2 (3.8-10.6) k/uL RBC 4.34 (4.30-5.90) m/uL Hgb 13.8 (13.0-17.5) gm/dL Hct 40.2 (39.0-53.0) % Plt Count 285 (150-450) k/uL Comprehensive Metabolic Panel 09/07/22 Range/Units 02:28 Sodium 140 (137-145) mmol/L Potassium 3.9 (3.5-5.1) mmol/L Chloride 108 H (98-107) mmol/L Carbon Dioxide 24 (22-30) mmol/L BUN 14 (9-20) mg/dL Creatinine 0.86 (0.66-1.25) mg/dL Glucose 105 H (74-99) mg/dL Calcium 9.2 (8.4-10.2) mg/dL AST 294 H (17-59) U/L ALT 452 H (4-49) U/L Alkaline Phosphatase 100 (38-126) U/L Total Protein 7.1 (6.3-8.2) g/dL Albumin 3.9 (3.5-5.0) g/dL Current Medications Generic Name Dose Route Start Last Admin Trade Name Freq PRN Reason Stop Dose Admin Aripiprazole 5 mg 09/07/22 21:00 Aripiprazole 5 Mg Tab PO HS [facility] Bupropion HCl 150 mg 09/08/22 09:00 Bupropion Xl 150 Mg Tab.Er.24h PO DAILY [facility] Sodium Chloride 1,000 mls @ 75 mls/hr 09/07/22 03:15 09/07/22 03:21 Saline 0.9% IV 75 mls/hr .[id number] [facility] Administration Morphine Sulfate 4 mg 09/07/22 03:14 09/07/22 08:38 Morphine Sulfate 4 Mg/Ml Syringe IV 4 mg Q4HR PRN Administration Severe Pain (Scale 7 to 10) Naloxone HCl 0.2 mg 09/07/22 03:14 Naloxone 0.4 Mg/Ml 1 Ml Vial IV Q2M PRN Opioid Reversal Ondansetron HCl 4 mg 09/07/22 03:14 Ondansetron 4 Mg/2 Ml Vial IVP Q8HR PRN Nausea And Vomiting Intake and Output 09/06/22 09/07/22 09/07/22 22:59 06:59 14:59 Intake Total 900 Output Total 500 Balance 400 Intake: Intake, IV Titration 900 Amount Sodium Chloride 0.9% 1, 900 000 ml @ 75 mls/hr IV . [id number] [facility] Rx#:[id number] Output: Urine 500 Other: Voiding Method Toilet # Voids 1 Weight 72.4 kg 09/07/22 02:31 09/07/22 02:28 Assessment and Plan Assessment: Chest pain or acute [place] ruled out, no ischemic changes on the EKG Abnormal EKG Plan: Obtain a 2-D echocardiogram Continue with telemetry monitoring Further recommendations based on clinical course The above impression and plan of care have been discussed and directed by the signing physician. Cher Duran, nurse practitioner, acting as scribe for signing physician.
--- NOTE | 2022-09-07 12:53 | P.HPIM ---
History of Present Illness 47-year-old male came in with complaints of chest pain sharp in nature midsternal area radiating to the left Corwin tingling numbness. Patient has some nonspecific ST elevations in the septal leads. There was also concern about regarding because of which etiology was consulted. Troponins are not elevated at this time. is mildly elevated liver enzymes secondary to history of hepatitis C patient had history of IV drug use which she stopped using 6 months ago. Echocardiogram showed normal ejection fraction from [facility] r 2021. Patient also had a near syncopal episode yesterday. Urine drug screen was ordered which is pending patient had history of drug use multiple drugs in the past. REVIEW OF SYSTEMS: CONSTITUTIONAL: No fever, no malaise, no fatigue. HEENT: No recent visual problems or hearing problems. Denied any sore throat. CARDIOVASCULAR: As mentioned in HPI PULMONARY: No shortness of breath, no cough, no hemoptysis. GASTROINTESTINAL: No diarrhea, no nausea, no vomiting, patient was comparing of right upper quadrant abdominal pain NEUROLOGICAL: No headaches, no weakness, no numbness. HEMATOLOGICAL: Denies any bleeding or petechiae. GENITOURINARY: Denies any burning micturition, frequency, or urgency. MUSCULOSKELETAL/RHEUMATOLOGICAL: Denies any joint pain, swelling, or any muscle pain. ENDOCRINE: Denies any polyuria or polydipsia. The rest of the 14-point review of systems is negative. PHYSICAL EXAMINATION: GENERAL: The patient is alert and oriented x3, not in any acute distress. Well developed, well nourished. HEENT: Pupils are round and equally reacting to light. EOMI. No scleral icterus. No conjunctival pallor. Normocephalic, atraumatic. No pharyngeal erythema. No thyromegaly. CARDIOVASCULAR: S1 and S2 present. No murmurs, rubs, or gallops. PULMONARY: Chest is clear to auscultation, no wheezing or crackles. ABDOMEN: Soft, nontender, nondistended, normoactive bowel sounds. No palpable organomegaly. MUSCULOSKELETAL: No joint swelling or deformity. EXTREMITIES: No cyanosis, clubbing, or pedal edema. NEUROLOGICAL: Gross neurological examination did not reveal any focal deficits. SKIN: No rashes. Assessment and plan -Chest pain with some EKG changes: We'll rule out acute coronary syndromes. Concern for Brugada Which is being addressed by cardiology. Near-syncope on echo is being obtained cardiology evaluated the patient -Elevated liver enzymes secondary to chronic hepatis C patient's face his not aware of hep C will hepatitis panel. And also the abdomen because of his complaints of right upper quadrant abdominal pain -Bipolar disorder -History of IV drug use in the past DVT prophylaxis: Early ambulation Past Medical History Past Medical History: No Reported History Additional Past Medical History / Comment(s): HEP B, HEP C, abnormal heart beat History of Any Multi-Drug Resistant Organisms: None Reported Past Surgical History: Ear Surgery Additional Past Surgical History / Comment(s): Tubes in bilat ears as a child Past Psychological History: No Psychological Hx Reported Smoking Status: Current every day smoker Past Alcohol Use History: Abuse, Daily, Heavy Past Drug Use History: Cocaine, Marijuana, Prescription Drug Abuse - Past Family History Mother Family Medical History: No Reported History Father Family Medical History: Chest Pain / Angina Medications and Allergies Home Medications Medication Instructions Recorded Confirmed Type ARIPiprazole [Abilify] 5 mg PO HS 08/07/22 09/07/22 History Multivitamins, Thera [Multivitamin 1 tab PO DAILY 08/07/22 09/07/22 History (formulary)] buPROPion HCL [buPROPion HCL Xl] 150 mg PO DAILY 08/07/22 09/07/22 History traZODone HCL [Desyrel] 100 mg PO HS 08/07/22 09/07/22 History Allergies Allergy/AdvReac Type Severity Reaction Status Date / Time ibuprofen Allergy Rash/Hives Verified 09/07/22 12:20 Physical Exam Vitals: Vital Signs Temp Pulse Pulse Resp BP BP Pulse Ox 09/07/22 11:57 16 105/56 98 09/07/22 08:37 98.1 F 61 18 94/54 98 09/07/22 03:45 98 F 63 16 103/65 99 09/07/22 03:02 58 L 16 103/74 98 09/07/22 02:00 98 F 103 H 17 110/57 99 Intake and Output 09/06/22 09/07/22 09/07/22 22:59 06:59 14:59 Intake Total 900 Output Total 500 Balance 400 Intake: Intake, IV Titration 900 Amount Sodium Chloride 0.9% 1, 900 000 ml @ 75 mls/hr IV . [id number] [facility] Rx#:[id number] Output: Urine 500 Other: Voiding Method Toilet # Voids 1 Weight 72.4 kg Results CBC & Chem 7: 09/07/22 02:31 09/07/22 02:28 Labs: Abnormal Lab Results - Last 24 Hours (Table) 09/07/22 Range/Units 02:28 Chloride 108 H (98-107) mmol/L Glucose 105 H (74-99) mg/dL AST 294 H (17-59) U/L ALT 452 H (4-49) U/L Thrombosis Risk Factor Assmnt - Choose All That Apply Any of the Below Risk Factors Present?: Yes Each Factor Represents 1 point: Age 41-60 years, Medical pt on bed rest Other Risk Factors: No Other congenital or acquired thrombophilia - If yes, enter type in comment: No Thrombosis Risk Factor Assessment Total Risk Factor Score: 2 Thrombosis Risk Factor Assessment Level: Low Risk
[2022-09-07 12:58] LABS: Amphetamine Screen,Urine Not Detected (NotDetected); Barbiturate Screen,Urine Not Detected (NotDetected); Benzodiazepines Screen,Urine Detected (NotDetected); Cocaine Screen,Urine Not Detected (NotDetected); Methadone Screen, Urine Not Detected (NotDetected); Opiate Screen,Urine Detected (NotDetected); Oxycodone Screen, Urine Not Detected (NotDetected); Phencyclidine Screen,Urine Not Detected (NotDetected); Tricyclic Antidepressant,Urine Not Detected (NotDetected); Urn Cannabinoid Scrn Detected (NotDetected)
[2022-09-07 16:59] LABS: Hepatitis A Antibody IgM Nonreactive (Nonreactive); Hepatitis B Core IgM Reactive (Nonreactive); Hepatitis C IgG Antibody Reactive (Nonreactive)
[2022-09-07 18:25] LABS: Hepatitis B Surface Antigen Confirmed reactive (Nonreactive)
[2022-09-07] MEDS: ARIPiprazole 5 MG TAB PO SCH (20:02)
[2022-09-07] MEDS ORDERED: traZODone HCL 100 MG TAB PO SCH (21:00)
[2022-09-08 08:16] LABS: HCT 38.7 % (39.0-53.0); HGB 12.7 gm/dL (13.0-17.5); MCH 30.8 pg (25.0-35.0); MCHC 32.7 g/dL (31.0-37.0); Mean Platelet Volume 7.4; Platelet Count 256 k/uL (150-450); RBC 4.12 m/uL (4.30-5.90); RDW 13.2 % (11.5-15.5); WBC 5.8 k/uL (3.8-10.6)
[2022-09-08 08:22] LABS: ALT 377 U/L (4-49); AST 306 U/L (17-59); African American GFR (CKD) >90 (>60 ml/min/1.73 sqM); Albumin 3.3 g/dL (3.5-5.0); Alkaline Phosphatase 102 U/L (38-126); Anion Gap 2 mmol/L; Blood Urea Nitrogen 14 mg/dL (9-20); Calcium 8.7 mg/dL (8.4-10.2); Carbon Dioxide 27 mmol/L (22-30); Chloride 108 mmol/L (98-107); Glucose 74 mg/dL (74-99); Non-African American GFR(CKD) >90 (>60 ml/min/1.73 sqM); Potassium 4.2 mmol/L (3.5-5.1); Sodium 137 mmol/L (137-145); Total Protein 6.1 g/dL (6.3-8.2)
[2022-09-08] MEDS: buPROPion XL 150 MG TAB.ER.24H PO SCH (08:39)
[2022-09-08] MEDS: MORPHINE SULFATE 4 MG/ML SYRINGE IV PRN ×4 (08:39→20:20)
--- NOTE | 2022-09-08 11:08 | US ---
EXAMINATION TYPE: US gallbladder DATE OF EXAM: 09/08/2022 COMPARISON: NONE CLINICAL HISTORY: elevated liver enzymes. Elevated liver enzymes. TECHNIQUE: Multiple sonographic images of the right upper quadrant are obtained. 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 Normal sonographic appearance of the liver. Gallbladder: No stones seen, wall thickening or pericholecystic fluid. Evidence for sonographic Easton's sign: No CBD: wnl Right Kidney: wnl IMPRESSION: No evidence for acute process. No suspicious liver masses.
--- NOTE | 2022-09-08 12:51 | P.PN ---
Subjective Progress Note Date: 09/08/22 Patient is seen today resting comfortably in bed in no signs of acute distress. Patient is sleeping he does become bradycardic with a heart rate in the 30s to 40s. While he is awake and resting heart rate is stable in 50s to 60s. With activity patient's heart rate jumps up into the 130s. He does report intermittent chest pain that radiates into his back. Troponins are negative 3. His blood pressure remained stable. His echocardiogram is pending.An ultrasound of the gallbladder has been ordered and is pending. Patient's liver enzymes are elevated AST 306 ALT 377. Objective - Vital Signs Vital signs: Vital Signs Temp 97.5 F L 09/08/22 11:46 Pulse 48 L 09/08/22 11:46 Resp 16 09/08/22 11:46 BP 110/55 09/08/22 11:46 Pulse Ox 99 09/08/22 11:46 FiO2 Intake & Output 09/07/22 09/08/22 09/08/22 18:59 06:59 18:59 Intake Total 1145 5 Output Total 1150 1075 Balance -5 -1070 Intake: IV 5 5 Invasive Line 1 5 5 Intake, IV Titration 900 Amount Sodium Chloride 0.9% 1, 900 000 ml @ 75 mls/hr IV . [id number] [facility] Rx#:[id number] Oral 240 Output: Urine 1150 1075 Other: Voiding Method Toilet Toilet Toilet # Voids 1 1 - Exam PHYSICAL EXAM: VITAL SIGNS: Reviewed. GENERAL: Well-developed in no acute distress. HEENT: Head is normocephalic. Pupils are equal, round. Sclerae anicteric. Mucous membranes of the mouth are moist. NECK: Supple. No JVD or thyromegaly RESPIRATORY: Respirations even and unlabored. Lungs diminished to auscultation bilaterally. CARDIO: Regular rate and rhythm. S1 and S2 heard. No murmur or gallops. EXTREMITIES: Normal range of motion. No clubbing or cyanosis. Peripheral pulses intact. Negative for bilateral lower extremity edema NEURO: Orientated to person, time, mood is appropriate - Labs CBC & Chem 7: 09/08/22 07:18 09/08/22 07:18 Labs: Abnormal Lab Results - Last 24 Hours (Table) 09/07/22 09/07/22 09/08/22 Range/Units 11:30 12:03 07:18 RBC 4.12 L (4.30-5.90) m/uL Hgb 12.7 L (13.0-17.5) gm/dL Hct 38.7 L (39.0-53.0) % Chloride (98-107) mmol/L AST (17-59) U/L ALT (4-49) U/L Total Protein (6.3-8.2) g/dL Albumin (3.5-5.0) g/dL Urine Opiates Screen Detected H (NotDetected) U Benzodiazepines Scrn Detected H (NotDetected) U Marijuana (THC) Screen Detected H (NotDetected) Hep Bs Antigen Confirmed reactive A (Nonreactive) Hep B Core IgM Ab Reactive A (Nonreactive) Hep C IgG Ab Reactive A (Nonreactive) 09/08/22 Range/Units 07:18 RBC (4.30-5.90) m/uL Hgb (13.0-17.5) gm/dL Hct (39.0-53.0) % Chloride 108 H (98-107) mmol/L AST 306 H (17-59) U/L ALT 377 H (4-49) U/L Total Protein 6.1 L (6.3-8.2) g/dL Albumin 3.3 L (3.5-5.0) g/dL Urine Opiates Screen (NotDetected) U Benzodiazepines Scrn (NotDetected) U Marijuana (THC) Screen (NotDetected) Hep Bs Antigen (Nonreactive) Hep B Core IgM Ab (Nonreactive) Hep C IgG Ab (Nonreactive) Assessment and Plan Assessment: Chest pain or acute [place] ruled out, no ischemic changes on the EKG Abnormal EKG Plan: Obtain a 2-D echocardiogram Continue with telemetry monitoring Further recommendations based on clinical course The above impression and plan of care have been discussed and directed by the signing physician. Cher Duran, nurse practitioner, acting as scribe for signing physician.
--- NOTE | 2022-09-08 13:41 | P.PN ---
Subjective 47-year-old male came in with complaints of chest pain sharp in nature midsternal area radiating to the left Corwin tingling numbness. Patient has some nonspecific ST elevations in the septal leads. There was also concern about regarding because of which etiology was consulted. Troponins are not elevated at this time. is mildly elevated liver enzymes secondary to history of hepatitis C patient had history of IV drug use which she stopped using 6 months ago. Echocardiogram showed normal ejection fraction from July 2022. Patient also had a near syncopal episode yesterday. Urine drug screen was ordered which is pending patient had history of drug use multiple drugs in the past. 09/08/2022 Patient is positive for chronic hep C and patient appears to have acute hepatitis B. Patient has a hepatitis B core IgM antibody and HBS antigen are positive. Liver enzymes are still elevated but coming down. Cardiology is recommending monitoring on telemetry. Constitutional: Denied any fatigue denied any fever. Cardio vascular: denied any chest pain, palpitations Gastrointestinal denied any nausea vomiting Pulmonary: Denied any shortness of breath cough Neurologic denied any new focal deficits All inpatient medications were reviewed and appropriate changes in these medications as dictated in the interval history and assessment and plan. PHYSICAL EXAMINATION: GENERAL: The patient is alert and oriented x3, not in any acute distress. Well developed, well nourished. HEENT: Pupils are round and equally reacting to light. EOMI. No scleral icterus. No conjunctival pallor. Normocephalic, atraumatic. No pharyngeal erythema. No thyromegaly. CARDIOVASCULAR: S1 and S2 present. No murmurs, rubs, or gallops. PULMONARY: Chest is clear to auscultation, no wheezing or crackles. ABDOMEN: Soft, nontender, nondistended, normoactive bowel sounds. No palpable organomegaly. MUSCULOSKELETAL: No joint swelling or deformity. EXTREMITIES: No cyanosis, clubbing, or pedal edema. NEUROLOGICAL: Gross neurological examination did not reveal any focal deficits. SKIN: No rashes. Assessment and plan -Chest pain with some EKG changes:ruled out acute coronary syndromes. Concern for Brugada Which is being addressed by cardiology.the 20 monitoring Near-syncope on echo is being obtained cardiology evaluated the patient -Elevated liver enzymes secondary to acute hepatitis B and chronic hep C -Bipolar disorder -History of IV drug use in the past DVT prophylaxis: Early ambulation Objective - Vital Signs Vital signs: Vital Signs Temp 97.5 F L 09/08/22 11:46 Pulse 48 L 09/08/22 11:46 Resp 16 09/08/22 11:46 BP 110/55 09/08/22 11:46 Pulse Ox 99 09/08/22 11:46 FiO2 Intake & Output 09/07/22 09/08/22 09/08/22 18:59 06:59 18:59 Intake Total 1145 5 Output Total 1150 1075 Balance -5 -1070 Intake: IV 5 5 Invasive Line 1 5 5 Intake, IV Titration 900 Amount Sodium Chloride 0.9% 1, 900 000 ml @ 75 mls/hr IV . [id number] [facility] Rx#:[id number] Oral 240 Output: Urine 1150 1075 Other: Voiding Method Toilet Toilet Toilet # Voids 1 1 - Labs CBC & Chem 7: 09/08/22 07:18 09/08/22 07:18 Labs: Abnormal Lab Results - Last 24 Hours (Table) 09/07/22 09/08/22 09/08/22 Range/Units 12:03 07:18 07:18 RBC 4.12 L (4.30-5.90) m/uL Hgb 12.7 L (13.0-17.5) gm/dL Hct 38.7 L (39.0-53.0) % Chloride 108 H (98-107) mmol/L AST 306 H (17-59) U/L ALT 377 H (4-49) U/L Total Protein 6.1 L (6.3-8.2) g/dL Albumin 3.3 L (3.5-5.0) g/dL Hep Bs Antigen Confirmed reactive A (Nonreactive) Hep B Core IgM Ab Reactive A (Nonreactive) Hep C IgG Ab Reactive A (Nonreactive)
[2022-09-08] MEDS: ARIPiprazole 5 MG TAB PO SCH (20:19)
[2022-09-09] MEDS: MORPHINE SULFATE 4 MG/ML SYRINGE IV PRN ×5 (04:34→23:35)
[2022-09-09 06:56] LABS: ALT 401 U/L (4-49); AST 310 U/L (17-59); African American GFR (CKD) >90 (>60 ml/min/1.73 sqM); Albumin 3.6 g/dL (3.5-5.0); Alkaline Phosphatase 106 U/L (38-126); Anion Gap 3 mmol/L; Blood Urea Nitrogen 15 mg/dL (9-20); Calcium 8.7 mg/dL (8.4-10.2); Carbon Dioxide 29 mmol/L (22-30); Chloride 105 mmol/L (98-107); Glucose 84 mg/dL (74-99); Non-African American GFR(CKD) >90 (>60 ml/min/1.73 sqM); Potassium 4.1 mmol/L (3.5-5.1); Sodium 137 mmol/L (137-145); Total Bilirubin 0.9 mg/dL (0.2-1.3); Total Protein 6.5 g/dL (6.3-8.2)
[2022-09-09] MEDS: buPROPion XL 150 MG TAB.ER.24H PO SCH (08:07)
--- NOTE | 2022-09-09 13:49 | P.PN ---
Subjective Progress Note Date: 09/09/22 History of present illness: This is a 47-year-old male with past medical history of hepatitis B, hepatitis C, history of alcohol abuse and drug abuse including cocaine, marijuana and prescription drugs. We have been asked to see the patient due to Brugada pattern on EKG. Patient presented to the hospital due to chest pain. He states he was sitting at the bar having a few drinks after work and he developed chest pain. Troponins have been negative and EKG showed a sinus rhythm with ST elevation in aVR, V1, V2. Echocardiogram 08/08/2022 revealed normal LV function. Repeat echocardiogram is pending. Patient does have history of his dad having sudden cardiac and brother has AICD. Patient states the pain in the chest develops any scales dizzy and passes out. He has some left-sided numbness and vision changes. He states these episodes have been going on for the past 3 years and happen when he is active. He denies any symptoms at the time of evaluation Physical examination: Gen: This is a [ ] VS: reviewed HEENT: Head is atraumatic, normocephalic. Pupils equal, round. Sclerae is anicteric. NECK: Supple. No JVD. No lymphadenopathy. No thyromegaly. LUNGS: Clear to auscultation. No wheezes or rhonchi. No intercostal retractions. HEART: Regular rate and rhythm. No murmur. ABDOMEN: Soft. Bowel sounds are present. No masses. No tenderness. EXTREMITIES: No pedal edema. No calf tenderness. NEUROLOGICAL: Patient is awake, alert and oriented x3. Cranial nerves 2 through 12 are grossly intact. Assessment: Chest pain, acute coronary syndrome has been ruled out Brugada pattern on EKG Syncopal episodes, could BE multi-factorial History of hepatitis B, hepatitis C History of alcohol use and drug use Plan: Consult EP, Dr. Rosas Obtain 2-D echocardiogram and Doppler study to assess cardiac structure and function Further recommendations to follow based upon clinical course Thank you kindly for this consultation. Nurse practitioner note has been reviewed, I agree with documented findings and plan of care. Patient was seen and examined. Objective - Vital Signs Vital signs: Vital Signs Temp 97.5 F L 09/09/22 08:02 Pulse 58 L 09/09/22 08:02 Resp 18 09/09/22 08:02 BP 99/59 09/09/22 08:02 Pulse Ox 98 09/09/22 08:02 FiO2 Intake & Output 09/08/22 09/09/22 09/09/22 18:59 06:59 18:59 Intake Total 241 118 Output Total 1075 Balance -834 118 Intake: IV 5 Invasive Line 1 5 Oral 236 118 Output: Urine 1075 Other: Voiding Method Toilet Toilet # Voids 1 - Labs CBC & Chem 7: 09/08/22 07:18 09/09/22 06:26 Labs: Abnormal Lab Results - Last 24 Hours (Table) 09/09/22 Range/Units 06:26 AST 310 H (17-59) U/L ALT 401 H (4-49) U/L
[2022-09-09] MEDS: HYDROcodone/APAP 5-325MG 1 EACH TAB PO PRN ×2 (16:16→21:41)
--- NOTE | 2022-09-09 16:37 | P.PN ---
Subjective Progress Note Date: 09/09/22 47-year-old male came in with complaints of chest pain sharp in nature midsternal area radiating to the left Corwin tingling numbness. Patient has some nonspecific ST elevations in the septal leads. There was also concern about regarding because of which etiology was consulted. Troponins are not elevated at this time. is mildly elevated liver enzymes secondary to history of hepatitis C patient had history of IV drug use which he stopped using 6 months ago. Echocardiogram showed normal ejection fraction from July 2022. Patient also had a near syncopal episode yesterday. Urine drug screen was ordered which is pending patient had history of drug use multiple drugs in the past. 09/08/2022 Patient is positive for chronic hep C and patient appears to have acute hepatitis B. Patient has a hepatitis B core IgM antibody and HBS antigen are positive. Liver enzymes are still elevated but coming down. Cardiology is recommending monitoring on telemetry. 09/09/2022 Patient is seen and evaluated in follow-up with cardiology following. Patient continues to report severe chest pain that is intermittent of 05/04. Cardiology following recommending consultation with Dr. Rosas which is pending. Patient also has a 2-D echo that was ordered and pending at this time. Encouraged i ncreased activity as tolerated and will continue to monitor closely. Follow-up labs in the a.m. LFT's remain elevated and will need outpatient GI counseling and follow-up. Hepatitis E ordered and pending. Review of systems: Constitutional: Denied any fatigue denied any fever. Cardio vascular: Reports chest pain, denies palpitations Gastrointestinal denied any nausea vomiting Pulmonary: Denied any shortness of breath cough Neurologic denied any new focal deficits All inpatient medications were reviewed and appropriate changes in these medications as dictated in the interval history and assessment and plan. PHYSICAL EXAMINATION: GENERAL: The patient is alert and oriented x3, not in any acute distress. Well developed, well nourished. Thin built HEENT: Pupils are round and equally reacting to light. EOMI. No scleral icterus. No conjunctival pallor. Normocephalic, atraumatic. No pharyngeal erythema. No thyromegaly. CARDIOVASCULAR: S1 and S2 present. No murmurs, rubs, or gallops. PULMONARY: Chest is clear to auscultation, no wheezing or crackles. ABDOMEN: Soft, nontender, nondistended, normoactive bowel sounds. No palpable organomegaly. MUSCULOSKELETAL: No joint swelling or deformity. EXTREMITIES: No cyanosis, clubbing, or pedal edema. NEUROLOGICAL: Gross neurological examination did not reveal any focal deficits. SKIN: No rashes. Assessment: -Chest pain with some EKG changes:ruled out acute coronary syndromes. Concern for Brugada Which is being addressed by cardiology. -Near-syncope 2-D echo ordered and pending, -Elevated liver enzymes secondary to acute hepatitis B and chronic hep C -Bipolar disorder -History of IV drug use in the past -DVT prophylaxis: Early ambulation Plan: Recommend continue with current medications and telemetry monitoring. C ardiology recommending evaluation by Dr. Rosas which is currently pending 2-D echo ordered and pending to be read Encouraged increased activity as tolerated Will await Dr. Rosas evaluation and discuss further with cardiology Possible discharge in 24 hours The impression and plan of care has been dictated by Francoise Rosenbaum, Nurse Practitioner as directed. Dr. Krystina MD I have performed a history and examination and MDM of this patient, discussed the same with the dictator, and agree with the dictator's assessment and plan as written ,documented as a scribe. Based on total visit time, I have performed more than 50% of the visit. Objective - Vital Signs Vital signs: Vital Signs Temp 97.5 F L 09/09/22 08:02 Pulse 58 L 09/09/22 08:02 Resp 18 09/09/22 08:02 BP 99/59 09/09/22 08:02 Pulse Ox 98 09/09/22 08:02 FiO2 Intake & Output 09/08/22 09/09/22 09/09/22 18:59 06:59 18:59 Intake Total 241 118 Output Total 1075 Balance -834 118 Weight 70.6 kg Intake: IV 5 Invasive Line 1 5 Oral 236 118 Output: Urine 1075 Other: Voiding Method Toilet Toilet # Voids 1 - Labs CBC & Chem 7: 09/08/22 07:18 09/09/22 06:26 Labs: Abnormal Lab Results - Last 24 Hours (Table) 09/09/22 Range/Units 06:26 AST 310 H (17-59) U/L ALT 401 H (4-49) U/L
--- NOTE | 2022-09-09 17:44 | CA ---
Transthoracic Echo Report Name: Willie Florez Age: 47 Gender: M : 1975 Exam Date: 09/09/2022 11:28 Exam Location: [place] [facility] Ht (in): 62 Wt (lb): 159 Ordering Physician: Cher Duran Attending/Referring Phys: Enforcement Safety Officer Shreya Pate RDCS Procedure CPT: Indications: abnormal ekg Cardiac Hx: Echo done 08/08/22: Limited Echo for EKG. Technical Quality: Contrast 1: Total Dose (mL): Contrast 2: Total Dose (mL): MEASUREMENTS (Male / Female) Normal Values 2D ECHO LV Diastolic Diameter PLAX 4.8 cm 4.2 - 5.9 / 3.9 - 5.3 cm LV Systolic Diameter PLAX 3.4 cm IVS Diastolic Thickness 0.9 cm 0.6 - 1.0 / 0.6 - 0.9 cm LVPW Diastolic Thickness 1.1 cm 0.6 - 1.0 / 0.6 - 0.9 cm LV Relative Wall Thickness 0.4 RV Internal Dim ED PLAX 3.5 cm LA Systolic Diameter LX 3.2 cm 3.0 - 4.0 / 2.7 - 3.8 cm FINDINGS Left Ventricle Normal left ventricular size, wall thickness, systolic function with no obvious regional wall motion abnormalities. Left ventricular ejection fraction is estimated at 55 %. Right Ventricle The right ventricle is normal in size and function. Right Atrium The right atrium is normal in size. Left Atrium The left atrium is normal in size. Mitral Valve Structurally normal mitral valve without significant stenosis or prolapse. There is mild mitral regurgitation. Aortic Valve Structurally normal aortic valve without significant sclerosis or stenosis. There is no aortic regurgitation. Tricuspid Valve Structurally normal tricuspid valve Pulmonic Valve Structurally normal pulmonic valve Pericardium Normal pericardium without effusion. Aorta Normal aortic root dimension. CONCLUSIONS Normal LV size and systolic function with mild MR and the Previewed by: Dr. Papito Rosas MD (Electronically Signed) Final Date: 09 September 2022 17:43
[2022-09-10] MEDS: HYDROcodone/APAP 5-325MG 1 EACH TAB PO PRN ×4 (03:09→21:42)
[2022-09-10 05:01] LABS: Hepatitis BE Antibody Nonreactive (Nonreactive); Hepatitis BE Antigen REACTIVE (Nonreactive)
[2022-09-10] MEDS: MORPHINE SULFATE 4 MG/ML SYRINGE IV PRN ×4 (06:08→20:47)
[2022-09-10] MEDS: buPROPion XL 150 MG TAB.ER.24H PO SCH (08:53)
[2022-09-10 10:38] LABS: Hepatitis B Virus DNA DETECTED (Not detected); Log HBV IU/mL 7.91 (<1.00)
--- NOTE | 2022-09-10 12:18 | P.PN ---
Subjective Progress Note Date: 09/10/22 History of present illness: This is a 47-year-old male with past medical history of hepatitis B, hepatitis C, history of alcohol abuse and drug abuse including cocaine, marijuana and prescription drugs. We have been asked to see the patient due to Brugada pattern on EKG. Patient presented to the hospital due to chest pain. He states he was sitting at the bar having a few drinks after work and he developed chest pain. Troponins have been negative and EKG showed a sinus rhythm with ST elevation in aVR, V1, V2. Echocardiogram 08/08/2022 revealed normal LV function. Repeat echocardiogram is pending. Patient does have history of his dad having sudden cardiac and brother has AICD. Patient states the pain in the chest develops any scales dizzy and passes out. He has some left-sided numbness and vision changes. He states these episodes have been going on for the past 3 years and happen when he is active. He denies any symptoms at the time of evaluation 09/10 Patient has been seen by Dr. Rosas and will be scheduled for AICD on 09/11. Patient denies having any chest pain or shortness of breath. Heart rate is in the high 40s and 50s, blood pressure 98/59, pulse ox 97% on room air. Electrolytes and renal function within normal limits. Echocardiogram reveals normal LV size and systolic function with mild MR Physical examination: Gen: This is a 47-year-old black male. He is resting but appears to be comfortable. VS: reviewed HEENT: Head is atraumatic, normocephalic. Pupils equal, round. Sclerae is anicteric. NECK: Supple. No JVD. LUNGS: Clear to auscultation. No wheezes or rhonchi. No intercostal retractions. HEART: Regular rate and rhythm. No murmur. EXTREMITIES: No pedal edema. No calf tenderness. NEUROLOGICAL: Patient is awake, alert and oriented x3. Assessment: Chest pain, acute coronary syndrome has been ruled out Brugada pattern on EKG Syncopal episodes, could BE multi-factorial History of hepatitis B, hepatitis C History of alcohol use and drug use Plan: Patient is scheduled tomorrow for AICD implantation with Dr. Rosas Further recommendations to follow based upon clinical course Nurse practitioner note has been reviewed, I agree with documented findings and plan of care. Patient was seen and examined. Objective - Vital Signs Vital signs: Vital Signs Temp 97.7 F 09/10/22 08:51 Pulse 51 L 09/10/22 08:51 Resp 18 09/10/22 08:51 BP 98/59 09/10/22 08:51 Pulse Ox 97 09/10/22 08:51 FiO2 Intake & Output 09/09/22 09/10/22 09/10/22 18:59 06:59 18:59 Intake Total 358 180 Balance 358 180 Weight 70.6 kg Intake: Oral 358 180 Other: Voiding Method Toilet Toilet # Voids 1 # Bowel Movements 1 - Labs CBC & Chem 7: 09/08/22 07:18 09/09/22 06:26 Labs: Abnormal Lab Results - Last 24 Hours (Table) 09/08/22 Range/Units 12:11 Hepatitis Be Antigen REACTIVE A (Nonreactive)
[2022-09-11] MEDS: MORPHINE SULFATE 4 MG/ML SYRINGE IV PRN ×5 (00:39→23:45)
[2022-09-11] MEDS: SODIUM CHLORIDE 0.9% 1,000 ML IV SCH ×4 (00:45→19:39)
--- NOTE | 2022-09-11 02:54 | P.PN ---
Subjective Progress Note Date: 09/10/22 47-year-old male came in with complaints of chest pain sharp in nature midsternal area radiating to the left Corwin tingling numbness. Patient has some nonspecific ST elevations in the septal leads. There was also concern about regarding because of which etiology was consulted. Troponins are not elevated at this time. is mildly elevated liver enzymes secondary to history of hepatitis C patient had history of IV drug use which he stopped using 6 months ago. Echocardiogram showed normal ejection fraction from July 2022. Patient also had a near syncopal episode yesterday. Urine drug screen was ordered which is pending patient had history of drug use multiple drugs in the past. 09/08/2022 Patient is positive for chronic hep C and patient appears to have acute hepatitis B. Patient has a hepatitis B core IgM antibody and HBS antigen are positive. Liver enzymes are still elevated but coming down. Cardiology is recommending monitoring on telemetry. 09/09/2022 Patient is seen and evaluated in follow-up with cardiology following. Patient continues to report severe chest pain that is intermittent of 05/04. Cardiology following recommending consultation with Dr. Rosas which is pending. Patient also has a 2-D echo that was ordered and pending at this time. Encouraged i ncreased activity as tolerated and will continue to monitor closely. Follow-up labs in the a.m. LFT's remain elevated and will need outpatient GI counseling and follow-up. Hepatitis E ordered and pending. 09/10/2022 Patient is seen in follow-up this morning with no acute overnight issues. Maranda ent remains on telemetry monitoring with cardiology following. Patient has been evaluated by Dr. Rosas and being scheduled for AICD placement on 09/11/2022. Patient reports chest pain is intermittent at times all improved. Encouraged continued activity as tolerated and recommended telemetry monitoring. Patient is afebrile denies chest pain or palpitations. Patient denies shortness of breath with no reports of nausea or vomiting noted. Patient will be nothing by mouth at midnight and will await report with cardiology clearance. Review of systems: Constitutional: Denied any fatigue denied any fever. Cardiovascular: Reports intermittent chest pain, denies palpitations Gastrointestinal denied any nausea vomiting Pulmonary: Denied any shortness of breath cough Neurologic denied any new focal deficits All inpatient medications were reviewed and appropriate changes in these medications as dictated in the interval history and assessment and plan. PHYSICAL EXAMINATION: GENERAL: The patient is alert and oriented x3, not in any acute distress. Well developed, well nourished. Thin built HEENT: Pupils are round and equally reacting to light. EOMI. No scleral icterus. No conjunctival pallor. Normocephalic, atraumatic. No pharyngeal erythema. No thyromegaly. CARDIOVASCULAR: S1 and S2 present. No murmurs, rubs, or gallops. PULMONARY: Chest is clear to auscultation, no wheezing or crackles. ABDOMEN: Soft, nontender, nondistended, normoactive bowel sounds. No palpable organomegaly. MUSCULOSKELETAL: No joint swelling or deformity. EXTREMITIES: No cyanosis, clubbing, or pedal edema. NEUROLOGICAL: Gross neurological examination did not reveal any focal deficits. SKIN: No rashes. Assessment: -Chest pain with some EKG changes:ruled out acute coronary syndromes. Concern for Brugada Which is being addressed by cardiology. -Near-syncope 2-D echo shows a normal EF some mild mitral regurgitation -Elevated liver enzymes secondary to acute hepatitis B and chronic hep C -Bipolar disorder -History of IV drug use in the past -DVT prophylaxis: Early ambulation -Full code Plan: Recommend to continue with current medications and telemetry monitoring. Cardiology recommending AICD placement with Dr. Rosas which is being scheduled for 09/11/2022 2-D echo ordered showing an EF of 55% with mild mitral regurgitation noted Encouraged increased activity as tolerated Patient scheduled for AICD placement on 09/11 and will be nothing by mouth at midnight Will await clearance from cardiology Possible discharge in 24-48 hours The impression and plan of care has been dictated by Francoise Rosenbaum, Nurse Practitioner as directed. Dr. Krystina MD I have performed a history and examination and MDM of this patient, discussed the same with the dictator, and agree with the dictator's assessment and plan as written ,documented as a scribe. Based on total visit time, I have performed more than 50% of the visit. Objective - Vital Signs Vital signs: Vital Signs Temp 98.3 F 09/11/22 00:00 Pulse 58 L 09/11/22 02:00 Resp 18 09/11/22 02:00 BP 105/68 09/11/22 00:00 Pulse Ox 99 09/11/22 00:00 FiO2 Intake & Output 09/10/22 09/10/22 09/11/22 06:59 18:59 06:59 Intake Total 450 Balance 450 Weight 68.8 kg Intake: Oral 450 Other: Voiding Method Toilet Toilet Toilet # Voids 2 1 - Labs CBC & Chem 7: 09/08/22 07:18 09/09/22 06:26 Labs: Abnormal Lab Results - Last 24 Hours (Table) 09/08/22 Range/Units 12:11 Hepatitis B DNA, Quant 81,407,443 H (<10) IU/mL Hep B DNA Qnt log IU/mL 7.91 H (<1.00) Hep B DNA Interpret DETECTED A (Not detected) Hepatitis Be Antigen REACTIVE A (Nonreactive)
[2022-09-11] MEDS: buPROPion XL 150 MG TAB.ER.24H PO SCH (06:12)
[2022-09-11] MEDS: HYDROcodone/APAP 5-325MG 1 EACH TAB PO PRN ×3 (06:13→21:45)
[2022-09-11 06:17] LABS: Glucose,Whole Blood 82 mg/dL (70-110)
[2022-09-11] MEDS ORDERED: ceFAZolin 1 GM in SODIUM CHLORIDE 0.9% IRRIG BTL 250 ML IRRIGATION PRN (07:00)
[2022-09-11] MEDS ORDERED: IV FLUID CONTINUATION 1,000 ML IV ONE (08:27)
[2022-09-11] MEDS ORDERED: fentaNYL (PF) 50 MCG/ML 2 ML AMP ONE (08:29)
[2022-09-11] MEDS ORDERED: KETAMINE 10 MG/ML 20 ML VIAL ONE (08:29)
[2022-09-11] MEDS ORDERED: GLYCOPYRROLATE 0.2 MG/ML 2 ML VIAL ONE (08:29)
[2022-09-11] MEDS ORDERED: PROPOFOL 10 MG/ML 20 ML VIAL IV ONE (08:29)
[2022-09-11] MEDS ORDERED: MIDAZOLAM 2 MG/2 ML VIAL ONE (08:29)
[2022-09-11] MEDS ORDERED: diphenhydrAMINE 50 MG/ML 1 ML VIAL ONE (08:29)
[2022-09-11] MEDS ORDERED: IOPAMIDOL-370 50ML BTL INJ ONE (08:45)
[2022-09-11] MEDS ORDERED: LIDOCAINE 1% INJ 10MG/ML (30 ML VIAL-PF) SQ ONE (09:15)
[2022-09-11] MEDS ORDERED: IV FLUID CONTINUATION 500 ML IV ONE (10:00)
[2022-09-11] MEDS ORDERED: ACETAMINOPHEN TAB 325 MG TAB PO PRN (10:13)
--- NOTE | 2022-09-11 10:20 | P.EPPROC ---
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 Rosas Result: Single chamber ICD implantation, RV ICD lead: [employer] single coil lead Pacing threshold 0.8 V at 0.5 ms, R waves between 9 and 10 mV and pacing impedance 850 ohms high-voltage impedance [address] [facility] [place] VR Procedure details: Patient was brought to the EP lab in a fasting state. Written informed consent was obtained prior to the procedure. Options, pros and cons, benefits and risks and complications discussed with patient in detail prior to the procedure (shared decision making document, from [facility]). Importance of continuing medical treatment emphasized. Alternatives discussed. Patient would like to proceed with ICD implant. Left upper extremity venogram performed. 15 mL IV dye injected in the left arm. Patent axillary/subclavian vein The left pectoral area was prepped and draped as a protocol. IV antibiotics administered 1% lidocaine was used for local anesthesia. A 4 cm incision was made parallel to the deltopectoral groove, about 1.5 cm medial to it. The incision was carried down to the level of the pectoralis muscle and the subfascial pocket was made. Hemostasis was assured. The axillary vein access was obtained. Appropriately sized venous sheath was placed. ICD lead implanted in the right ventricle septum and screwed in. ICD lead tested for threshold, sensing, impedances and tested with high output pacing for diaphragmatic stimulation Defibrillation level testing Ventricular fibrillation induced, successfully detected at least sensitivity without any dropouts and successfully internally defibrillated with 10 J shock. Charge time 1.8 seconds shocking impedance 69 ohms No post shock noise Lead secured to the underlying transverse muscle after removing sheaths . Pock et irrigated with antibiotic solution Leads connected to the single-chamber ICD generator. Wound closed in 3 layers and dressed per protocol 1 therapy zone at 214 beats a minute. Monitor zone from 170-214 beats a minute Patient tolerated the procedure well without any acute complications. See scanned device report in EMR for lead details
--- NOTE | 2022-09-11 10:27 | P.EPCON ---
Electrophysiology Consult - EP Consult Electrophysiology Consult: This is Dr. Rosas dictating an electrophysiology consult on this patient The patient was interviewed and examined IMPRESSION / ASSESSMENT: Recurrent syncope and presyncope over the last 3 years Despite that the patient did not seek medical attention Family history of sudden cardiac . His father suddenly His brother experienced sudden cardiac at work and now has an ICD Patient's twelve-lead EKG shows a type I Brugada pattern No incriminating medications no other triggering factors No bradycardia on telemetry PLAN: Prophylactic single-chamber ICD for primary prevention of sudden cardiac in this setting of high risk for sudden cardiac with a type-Brugada morphology and recurrent presyncope and syncope Avoid incriminating medications Triggering factors for Brugada syndrome were discussed with the patient Patient was instructed to contact his family members and also have his children evaluated by a head worker or dispatch clerk for condition that is genetically determined and increase his risk of sudden cardiac HPI Patient presented to the hospital and he had a brief syncopal spell that was witnessed by his friend at a bar On more detailed questioning he has had recurrent presyncope and syncope preceded by palpitations for the last 3 years He has not sought any medical attention despite the fact that he's had these symptoms for 3 years and that he has a family history of sudden cardiac in his father and brother He has a history of hepatitis B and hepatitis C and uses a variety of recreational products and medications On telemetry no arrhythmias have been noted He has to twelve-lead EKGs which shows a type I Brugada pattern ROS: No fever chills or rigors, no cough, phlegm or expectoration, no nausea, vomiting or diarrhea, no hematuria, dysuria, no musculoskeletal complaints, no strokes or seizures, no skin lesions. EXAMINATION: 103/50, 67 beats a minute, afebrile No JVD Normal heart sounds Normal breath sounds REVIEW OF LABS, ECG & MEDICAL DATA Normal white count, normal hemoglobin Normal electrolytes Abnormal liver function Normal NT proBNP normal cardiac enzymes Positive for opiates, positive benzodiazepine, positive THC Hepatitis B antigen reactive, greater than 81 million hepatitis B DNA particle Hepatitis C antibody reactive
[2022-09-12] MEDS: HYDROcodone/APAP 5-325MG 1 EACH TAB PO PRN ×2 (03:36→09:37)
[2022-09-12] MEDS ORDERED: MORPHINE SULFATE 4 MG/ML SYRINGE IV PRN (05:10)
--- NOTE | 2022-09-12 05:14 | P.PN ---
Subjective Progress Note Date: 09/11/22 47-year-old male came in with complaints of chest pain sharp in nature midsternal area radiating to the left [place]win tingling numbness. Patient has some nonspecific ST elevations in the septal leads. There was also concern about regarding because of which etiology was consulted. Troponins are not elevated at this time. is mildly elevated liver enzymes secondary to history of hepatitis C patient had history of IV drug use which he stopped using 6 months ago. Echocardiogram showed normal ejection fraction from July 2022. Patient also had a near syncopal episode yesterday. Urine drug screen was ordered which is pending patient had history of drug use multiple drugs in the past. 09/08/2022 Patient is positive for chronic hep C and patient appears to have acute hepatitis B. Patient has a hepatitis B core IgM antibody and HBS antigen are positive. Liver enzymes are still elevated but coming down. Cardiology is recommending monitoring on telemetry. 09/09/2022 Patient is seen and evaluated in follow-up with cardiology following. Patient continues to report severe chest pain that is intermittent of 05/04. Cardiology following recommending consultation with Dr. Rosas which is pending. Patient also has a 2-D echo that was ordered and pending at this time. Encouraged i ncreased activity as tolerated and will continue to monitor closely. Follow-up labs in the a.m. LFT's remain elevated and will need outpatient GI counseling and follow-up. Hepatitis E ordered and pending. 09/10/2022 Patient is seen in follow-up this morning with no acute overnight issues. Maranda ent remains on telemetry monitoring with cardiology following. Patient has been evaluated by Dr. Rosas and being scheduled for AICD placement on 09/11/2022. Patient reports chest pain is intermittent at times all improved. Encouraged continued activity as tolerated and recommended telemetry monitoring. Patient is afebrile denies chest pain or palpitations. Patient denies shortness of breath with no reports of nausea or vomiting noted. Patient will be nothing by mouth at midnight and will await report with cardiology clearance. 09/11/2022 Patient is seen and evaluated currently nothing by mouth scheduled to undergo AICD placement with Dr. Rosas. Will await final report and cardiology clearance prior to discharge. Per nursing staff patient will likely be discharged in 24 hours if having no complications post follow-up chest x-ray and interrogation of the device. Afebrile and will wean IV pain medication. No reports of chest pain or shortness of breath and diet will be resumed post intervention. Review of systems: Constitutional: Denied any fatigue denied any fever. Cardiovascular: Reports intermittent chest pain, denies palpitations Gastrointestinal denied any nausea vomiting Pulmonary: Denied any shortness of breath cough Neurologic denied any new focal deficits All inpatient medications were reviewed and appropriate changes in these medications as dictated in the interval history and assessment and plan. PHYSICAL EXAMINATION: GENERAL: The patient is alert and oriented x3, not in any acute distress. Well developed, well nourished. Thin built HEENT: Pupils are round and equally reacting to light. EOMI. No scleral icterus. No conjunctival pallor. Normocephalic, atraumatic. No pharyngeal erythema. No thyromegaly. CARDIOVASCULAR: S1 and S2 present. No murmurs, rubs, or gallops. Post AICD placement PULMONARY: Chest is clear to auscultation, no wheezing or crackles. ABDOMEN: Soft, nontender, nondistended, normoactive bowel sounds. No palpable or ganomegaly. MUSCULOSKELETAL: No joint swelling or deformity. EXTREMITIES: No cyanosis, clubbing, or pedal edema. NEUROLOGICAL: Gross neurological examination did not reveal any focal deficits. SKIN: No rashes. Assessment: -Chest pain with some EKG changes:ruled out acute coronary syndromes. Concern for Brugada status post AICD placement on 09/11/2022 -Near-syncope 2-D echo shows a normal EF some mild mitral regurgitation -Elevated liver enzymes secondary to acute hepatitis B and chronic hep C -Bipolar disorder -History of IV drug use in the past -DVT prophylaxis: Early ambulation -Full code Plan: Recommend to continue with current medications and telemetry monitoring. Patient is status post AICD placement with Dr. Rosas 09/11/2022 2-D echo ordered showing an EF of 55% with mild mitral regurgitation noted Encouraged increased activity as tolerated Patient scheduled for AICD interrogation along with follow-up chest x-ray in the a.m. Patient with restrictions of not elevating arms and continuing with the sling until cleared by cardiology Will await clearance from cardiology for discharge home Possible discharge in 24 hours The impression and plan of care has been dictated by Francoise Rosenbaum, Nurse Practitioner as directed. Dr. Krystina MD I have performed a history and examination and MDM of this patient, discussed the same with the dictator, and agree with the dictator's assessment and plan as written ,documented as a scribe. Based on total visit time, I have performed more than 50% of the visit. Objective - Vital Signs Vital signs: Vital Signs Temp 97 F L 09/11/22 10:27 Pulse 62 09/11/22 10:57 Resp 16 09/11/22 10:57 BP 136/78 09/11/22 10:57 Pulse Ox 97 09/11/22 10:57 FiO2 Intake & Output 09/10/22 09/11/22 09/11/22 18:59 06:59 18:59 Intake Total 450 1150 Balance 450 1150 Weight 69.5 kg Intake: IV 1150 Oral 450 Other: Voiding Method Toilet Toilet # Voids 2 1 - Labs CBC & Chem 7: 09/08/22 07:18 09/09/22 06:26
[2022-09-12] MEDS: buPROPion XL 150 MG TAB.ER.24H PO SCH (08:32)
--- NOTE | 2022-09-12 08:49 | XR ---
EXAMINATION TYPE: XR chest 1V portable DATE OF EXAM: 09/12/2022 6:26 AM COMPARISON: Chest radiographs from 08/07/2022. TECHNIQUE: XR chest 1V portable Portable AP radiograph of the chest. CLINICAL INDICATION:Male, 47 years old with history of Lead placement check; FINDINGS: Lungs/Pleura: There is no evidence of pleural effusion, focal consolidation, or pneumothorax. Pulmonary vascularity: Unremarkable. Heart/mediastinum: Cardiomediastinal silhouette is unremarkable. Single-lead cardiac conduction colin ce overlying the left hemithorax with lead projecting over the right ventricle. Musculoskeletal: No acute osseous pathology. IMPRESSION: 1. No acute cardiopulmonary disease/process. 2. Left chest wall with cardiac conduction leads in appropriate position.
[2022-09-12 09:14] VITALS: RESP 20
--- NOTE | 2022-09-12 11:31 | P.PN ---
Subjective Progress Note Date: 09/12/22 History of present illness: This is a 47-year-old male with past medical history of hepatitis B, hepatitis C, history of alcohol abuse and drug abuse including cocaine, marijuana and prescription drugs. We have been asked to see the patient due to Brugada pattern on EKG. Patient presented to the hospital due to chest pain. He states he was sitting at the bar having a few drinks after work and he developed chest pain. Troponins have been negative and EKG showed a sinus rhythm with ST elevation in aVR, V1, V2. Echocardiogram 08/08/2022 revealed normal LV function. Repeat echocardiogram is pending. Patient does have history of his dad having sudden cardiac and brother has AICD. Patient states the pain in the chest develops any scales dizzy and passes out. He has some left-sided numbness and vision changes. He states these episodes have been going on for the past 3 years and happen when he is active. He denies any symptoms at the time of evaluation 09/10 Patient has been seen by Dr. Rosas and will be scheduled for AICD on 09/11. Patient denies having any chest pain or shortness of breath. Heart rate is in the high 40s and 50s, blood pressure 98/59, pulse ox 97% on room air. Electrolytes and renal function within normal limits. Echocardiogram reveals normal LV size and systolic function with mild MR 09/12 Patient is status post single ICD implantation yesterday. Repeat chest x-ray this morning reveals no complications. Patient is stating that he feels tired. Vital signs have been stable. Physical examination: Gen: This is a 47-year-old black male. He is resting but appears to be comfortable. VS: reviewed HEENT: Head is atraumatic, normocephalic. Pupils equal, round. Sclerae is anicteric. LUNGS: Clear to auscultation. No wheezes or rhonchi. No intercostal retractions. HEART: Regular rate and rhythm. No murmur. EXTREMITIES: No pedal edema. No calf tenderness. NEUROLOGICAL: Patient is awake, alert and oriented x3. Assessment: Chest pain, acute coronary syndrome has been ruled out Brugada pattern on EKG status post AICD Syncopal episodes, could BE multi-factorial History of hepatitis B, hepatitis C History of alcohol use and drug use Plan: Patient is cleared for discharge home Nurse practitioner note has been reviewed, I agree with documented findings and plan of care. Patient was seen and examined. Objective - Vital Signs Vital signs: Vital Signs Temp 97.8 F 09/12/22 04:00 Pulse 52 L 09/12/22 04:00 Resp 16 09/12/22 04:00 BP 115/70 09/12/22 04:00 Pulse Ox 100 09/12/22 04:00 FiO2 Intake & Output 09/11/22 09/12/22 09/12/22 18:59 06:59 18:59 Intake Total 1508 1230 Balance 1508 1230 Weight 69.5 kg Intake: IV 1150 Intake, IV Titration 450 Amount Sodium Chloride 0.9% 1, 350 000 ml @ 50 mls/hr IV . Q20H [facility] Rx#:[id number] ceFAZolin 2 gm In Sodium 100 Chloride 0.9% 50 ml @ 100 mls/hr IVPB Q6H [facility] Rx#: [id number] Oral [id number] Other: Voiding Method Toilet # Voids 1 - Labs CBC & Chem 7: 09/08/22 07:18 09/09/22 06:26
[2022-09-12 11:44] VITALS: BP 117/70; PULSE 60; TEMP 98
[2022-09-12 13:40] VITALS: BMI 21.9
--- NOTE | 2022-09-13 20:03 | P.DS ---
Providers Date of admission: 09/07/22 03:14 Expected date of discharge: 09/12/22 Attending physician: Yanet Hong Consults: 09/07/22 03:14 Consult Physician Routine Consulting Provider: Michi James Consult Reason/Comments: brugada?CP Do you want consulting provider notified?: Yes 09/09/22 08:55 Consult Physician Routine Consulting Provider: Papito Rosas Consult Reason/Comments: Burgada eval Do you want consulting provider notified?: Yes Primary care physician: Stated None Hospital Course: Final diagnosis -Chest pain with some EKG changes:ruled out acute coronary syndromes. Concern for Brugada status post AICD placement on 09/11/2022 -Near-syncope 2-D echo shows a normal EF some mild mitral regurgitation -Elevated liver enzymes secondary to acute hepatitis B and chronic hep C -Bipolar disorder -History of IV drug use in the past -DVT prophylaxis: Early ambulation -Full code Discharge disposition Patient is being discharged in a stable condition with guarded prognosis to home. Patient will follow-up with Dr. Botello in the outpatient setting upon discharge. Patient is to follow-up with cardiology as well as GI as scheduled. Total time taken is greater than 35 minutes. Hospital course This is a 47-year-old male who was recently admitted with chest pain and arrhythmia and being closely monitored. Patient followed by cardiology recommending AICD placement in patient is status post placement with Dr. Rosas and doing well. Patient has been cleared by cardiology with close outpatient follow-up. Patient to continue sling to the left arm and follow-up appointment is made for this week. Patient continues with some pain and encourage the use of Tylenol. Patient will be discharged home today with resources provided to establish with a primary care provider as he does not currently have one. Patient did have elevated LFTs and found to have hepatitis B and C and recommend following up with GI in the outpatient setting. Currently no reports of chest pain, shortness of breath, or palpitations. Patient is afebrile. No reports of nausea or vomiting and patient is tolerating diet. Patient will be discharged home today. Guarded prognosis. Physical exam: Gen: This is a 47-year-old male who is awake, alert and oriented 3, well- developed, well-nourished HEENT: Head is atraumatic, normocephalic. Pupils equal, round. Sclerae is anicteric. NECK: Supple. No JVD. No lymphadenopathy. No thyromegaly. LUNGS: Clear to auscultation. No wheezes or rhonchi. No intercostal retractions. HEART: Regular rate and rhythm. No murmur. Left chest wall pacemaker placement and site is dry and intact ABDOMEN: Soft. Bowel sounds are present. No masses. No tenderness. EXTREMITIES: No pedal edema. No calf tenderness. NEUROLOGICAL: Patient is awake, alert and oriented x3. Cranial nerves 2 through 12 are grossly intact. Please refer to medication reconciliation sheet for a list of medications. The impression and plan of care has been dictated by Francoise Rosenbaum, Nurse Practitioner as directed. Dr. Krystina MD I have performed a history and examination and MDM of this patient, discussed the same with the dictator, and agree with the dictator's assessment and plan as written ,documented as a scribe. Based on total visit time, I have performed more than 50% of the visit. Patient Condition at Discharge: Fair Plan - Discharge Summary New Discharge Prescriptions: New Acetaminophen Tab [Tylenol] 650 mg PO Q6HR PRN tab PRN Reason: Mild Pain (Scale 1 To 3) HYDROcodone/APAP 5-325MG [[place] 5-325] 1 tab PO Q6HR PRN #9 tab PRN Reason: Pain Continue Multivitamins, Thera [Multivitamin (formulary)] 1 tab PO DAILY buPROPion HCL [buPROPion HCL Xl] 150 mg PO DAILY traZODone HCL [Desyrel] 100 mg PO HS Discontinued ARIPiprazole [Abilify] 5 mg PO HS Discharge Medication List Multivitamins, Thera [Multivitamin (formulary)] 1 tab PO DAILY 08/07/22 [History] buPROPion HCL [buPROPion HCL Xl] 150 mg PO DAILY 08/07/22 [History] traZODone HCL [Desyrel] 100 mg PO HS 08/07/22 [History] Acetaminophen Tab [Tylenol] 650 mg PO Q6HR PRN tab 09/12/22 [Rx] HYDROcodone/APAP 5-325MG [[place] 5-325] 1 tab PO Q6HR PRN #9 tab 09/12/22 [Rx] Follow up Appointment(s)/Referral(s): Papito Rosas MD [STAFF PHYSICIAN] - 09/18/22 3:30 pm (device check 09/18/22 at 3:30pm ) Nancy Putnam MD [STAFF PHYSICIAN] - 1 Week Snehal Botello MD [STAFF PHYSICIAN] - 1 Week (PLEASE CALL TO MAKE FOLLOW UP APPOINTMENT) Dheeraj Putnam MD [STAFF PHYSICIAN] - 1 Week (OFFICE WILL CALL WITH FOLLOW UP DATE AND TIME) Patient Instructions/Handouts: Implantable Cardioverter Defibrillator (DC) Activity/Diet/Wound Care/Special Instructions: PATIENT EDUCATION MATERIAL Instructions following a heart rhythm device implant. 1. Keep dressing DRY for 5 DAYS. You may cover the area with Saran or Cling Wrap, prior to a shower. 2. The dressing will be removed in the Device Clinic at [facility]. Absorbable sutures were used to close the wound. 3. Avoid raising the left arm above the shoulder level. 4 week restriction 4. Avoid arm movements, like backscratching, rubbing the head, or pulling on a cord. 4 weeks restriction 5. Gentle range of motion movements of the shoulder, closest to the incision should be performed to avoid a frozen shoulder. (Pendulum exercises of the shoul juliet) 6. The opposite arm may be used freely. 7. Avoid driving for 7 days. 8. Avoid activities such as golfing, swimming, weed whacking, lifting more than 10 pounds weight, bowling, gymnastics and weight training/lifting. (6 weeks restriction) 9. Activities such as wood chopping with an axe, pull-ups in the gymnasium, power lifting, arc-welding, being close to home induction cooktops will always be a problem. 10. Arm sling is only a reminder not to raise the arm above the head. You do not need to keep the arm completely immobilized. Your free to move the arm and use it and for normal activities. In case of any problems, please call Cardiology [facility], [place], @ [phone], Attention: Device Clinic Device clinic follow-up in 5 days Follow-up with primary illuminator in 2-3 months Follow-up with GI outpatient as well Follow-up with primary care provider with resources provided to establish Continue taking medications as prescribed Discharge Disposition: HOME SELF-CARE
== END 2022-09-12 13:56 | disposition home or self-care (01) | DRG 227 ==
LOC: EC 01:56 → 3SCARD 03:14
PROVIDERS: ADMIT Hospitalist; ATTEND Hospitalist
PROC: B51N1ZZ Fluoroscopy of Left Upper Extremity Veins using Low Osmolar Contrast (ICD-10-PCS; 2022-09-11)
PROC: 0JH608Z Insertion of Defibrillator Generator into Chest Subcutaneous Tissue and Fascia, Open Approach (ICD-10-PCS; principal; 2022-09-11 08:30)
PROC: 0JH60FZ Insertion of Subcutaneous Defibrillator Lead into Chest Subcutaneous Tissue and Fascia, Open Approach (ICD-10-PCS; 2022-09-11 08:30)
DX: I49.8 Other specified cardiac arrhythmias (principal); B16.9 Acute hepatitis B without delta-agent and without hepatic coma; F10.10 Alcohol abuse, uncomplicated; F31.9 Bipolar disorder, unspecified; B18.2 Chronic viral hepatitis C; I34.0 Nonrheumatic mitral (valve) insufficiency; F41.9 Anxiety disorder, unspecified; F17.210 Nicotine dependence, cigarettes, uncomplicated; F19.91 Other psychoactive substance use, unspecified, in remission; Z82.49 Family history of ischemic heart disease and other diseases of the circulatory system; Z79.899 Other long term (current) drug therapy; Z88.6 Allergy status to analgesic agent
CPT/HCPCS: 33249; 36415; 71045; 76705; 80053; 80074; 80306; 83735; 83880; 84100; 84443; 84484; 85025; 85027; 85379; 85610; 85730; 86707; 87350; 87517; 93005; 93306; 93641; 94760; 96374; 99291

== ENCOUNTER 2024-03-01 02:54 | Inpatient (IN) | payer OTHER ==
--- NOTE | 2024-03-01 03:16 | ED ---
General Adult HPI - General Source: patient, RN notes reviewed, old records reviewed Mode of arrival: ambulatory Limitations: no limitations <Venu Almaguer - Last Filed: 03/01/24 03:15> - General Source: patient, RN notes reviewed, old records reviewed Mode of arrival: ambulatory Limitations: no limitations <Ilya Miramontes - Last Filed: 03/02/24 20:34> - General Stated complaint: Mental Health Time Seen by Provider: 03/01/24 03:01 - History of Present Illness Initial comments: 48 male presenting for mental health evaluation. Patient states that for the past several days he has had increased depression and thoughts of suicide. He states he has anxiety and depression at baseline but this has been significantly worse. He has contemplated suicide without suicide attempt. No physical complaints. (Venu Almaguer) This is a 48-year-old male to ER for psychiatric illness (Ilya Miramontes) - Related Data Home Medications Medication Instructions Recorded Confirmed No Known Home Medications 03/01/24 03/01/24 Allergies Allergy/AdvReac Type Severity Reaction Status Date / Time ibuprofen Allergy Rash/Hives Verified 03/01/24 02:58 Review of Systems ROS Other: All systems not noted in ROS Statement are negative. <Venu Almaguer - Last Filed: 03/01/24 03:15> ROS Other: All systems not noted in ROS Statement are negative. <Ilya Miramontes - Last Filed: 03/02/24 20:34> ROS Statement: Those systems with pertinent positive or pertinent negative responses have been documented in the HPI. Past Medical History Past Medical History: No Reported History Additional Past Medical History / Comment(s): HEP B, HEP C, abnormal heart beat History of Any Multi-Drug Resistant Organisms: None Reported Past Surgical History: Ear Surgery Additional Past Surgical History / Comment(s): Tubes in bilat ears as a child Past Psychological History: No Psychological Hx Reported Smoking Status: Current every day smoker Past Alcohol Use History: Abuse, Daily, Heavy Past Drug Use History: Cocaine, Marijuana, Prescription Drug Abuse - Past Family History Mother Family Medical History: No Reported History Father Family Medical History: Chest Pain / Angina <Venu Almaguer - Last Filed: 03/01/24 03:15> General Exam Limitations: no limitations General appearance: alert, in no apparent distress Head exam: Present: atraumatic, normocephalic Eye exam: Present: normal appearance, PERRL ENT exam: Present: normal exam Neck exam: Present: normal inspection. Absent: tenderness, meningismus Respiratory exam: Present: normal lung sounds bilaterally. Absent: respiratory distress, wheezes Cardiovascular Exam: Present: regular rate, normal rhythm GI/Abdominal exam: Present: soft. Absent: distended, tenderness Extremities exam: Present: normal inspection, normal capillary refill Neurological exam: Present: alert, oriented X3, CN II-XII intact Psychiatric exam: Present: depressed, anxious, suicidal ideation Skin exam: Present: warm, dry, intact <ZulyzuhairVenu huitron - Last Filed: 03/01/24 03:15> General appearance: alert, in no apparent distress Head exam: Present: atraumatic, normocephalic, normal inspection Eye exam: Present: normal appearance, PERRL, EOMI. Absent: scleral icterus, conjunctival injection, periorbital swelling ENT exam: Present: normal exam, mucous membranes moist Neck exam: Present: normal inspection. Absent: tenderness, meningismus, lymphadenopathy Respiratory exam: Present: normal lung sounds bilaterally. Absent: respiratory distress, wheezes, rales, rhonchi, stridor Cardiovascular Exam: Present: regular rate, normal rhythm, normal heart sounds. Absent: systolic murmur, diastolic murmur, rubs, gallop, clicks GI/Abdominal exam: Present: soft, normal bowel sounds. Absent: distended, tenderness, guarding, rebound, rigid Extremities exam: Present: normal inspection, full ROM, normal capillary refill. Absent: tenderness, pedal edema, joint swelling, calf tenderness Back exam: Present: normal inspection Neurological exam: Present: alert, oriented X3, CN II-XII intact Psychiatric exam: Present: normal affect, normal mood Skin exam: Present: warm, dry, intact, normal color. Absent: rash <Ilya Miramontes - Last Filed: 03/02/24 20:34> Course <Ilya Miramontes - Last Filed: 03/02/24 20:34> Vital Signs 03/01/24 03/01/24 03/01/24 02:56 05:00 18:10 Temperature 97.9 F 98.9 F Pulse Rate 73 64 55 L Respiratory 22 16 16 Rate Blood Pressure 127/75 110/61 112/68 O2 Sat by Pulse 100 98 99 Oximetry - Reevaluation(s) Reevaluation #1: Medical records reviewed medically clear for psychiatric evaluation Medically cleared for psychiatric evaluation (Ilya Miramontes) Medical Decision Making <Venu Almaguer - Last Filed: 03/01/24 03:15> - Lab Data Result diagrams: 03/02/24 08:05 03/02/24 08:05 <Ilya Miramontes - Last Filed: 03/02/24 20:34> - Medical Decision Making Was pt. sent in by a medical professional or institution (, ANTONIO, SUPPORT MANAGER, urgent care, hospital, or skilled nursing...) When possible be specific @ -No Did you speak to anyone other than the patient for history (EMS, parent, family, police, friend...)? What history was obtained from this source @ -No Did you review nursing and triage notes (agree or disagree)? Why? @ -I reviewed and agree with nursing and triage notes Were old charts reviewed (outside hosp., previous admission, EMS record, old EKG, old radiological studies, urgent care reports/EKG's, skilled nursing records)? Report findings @ -No old charts were reviewed Differential Mental Health Depression, anxiety, bipolar, psychosis, schizophrenia, borderline personality, situational depression, adjustment disorder, behavioral disorder, brain tumor, malingering, substance abuse, encephalopathy, medication reaction, dementia, hypothyroidism, degenerative neurologic disorder, lupus.... This is not meant to be all-inclusive list EKG interpreted by me (3pts min.). @ -As above X-rays interpreted by me (1pt min.). @ -None done CT interpreted by me (1pt min.). @ -None done U/S interpreted by me (1pt. min.). @ -None done What testing was considered but not performed or refused? (CT, X-rays, U/S, labs)? Why? @ -None What meds were considered but not given or refused? Why? @ -None Did you discuss the management of the patient with other professionals (professionals i.e. , ANTONIO, SUPPORT MANAGER, lab, RT, psych nurse, social services counselor, automation consultant, teacher, adult parole officer, pillowcase maker)? Give summary @ -No Was smoking cessation discussed for >3mins.? @ -No Was critical care preformed (if so, how long)? @ -No Were there social determinants of health that impacted care today? How? (Homelessness, low income, unemployed, alcoholism, drug addiction, transportation, low edu. Level, literacy, decrease access to med. care, alf, rehab)? @ -No Was there de-escalation of care discussed even if they declined (Discuss DNR or withdrawal of care, Hospice)? DNR status @ -No What co-morbidities impacted this encounter? (DM, HTN, Smoking, COPD, CAD, Cancer, CVA, ARF, Chemo, Hep., AIDS, mental health diagnosis, sleep apnea, morbi d obesity)? @ -Depression, anxiety Was patient admitted / discharged? Hospital course, mention meds given and route, prescriptions, significant lab abnormalities, going to OR and other pertinent info. @Patient medically cleared awaiting EPS evaluation. (Venu Almaguer) 48 male will be admitted for psychiatric evaluation and treatment (Ilya Miramontes) - Lab Data Lab Results 03/01/24 03/01/24 Range/Units 10:32 10:32 Urine Opiates Screen Not Detected (NotDetected) Ur Oxycodone Screen Not Detected (NotDetected) Urine Methadone Screen Not Detected (NotDetected) Ur Barbiturates Screen Not Detected (NotDetected) U Tricyclic Antidepress Not Detected (NotDetected) Ur Phencyclidine Scrn Not Detected (NotDetected) Ur Amphetamines Screen Not Detected (NotDetected) U Methamphetamines Scrn Not Detected (NotDetected) U Benzodiazepines Scrn Detected H (NotDetected) Urine Cocaine Screen Detected H (NotDetected) U Marijuana (THC) Screen Detected H (NotDetected) SARS-CoV-2 (PCR) Not Detected (Not Detectd) Disposition <Venu Almaguer - Last Filed: 03/01/24 03:15> Is patient prescribed a controlled substance at d/c from ED?: No <Ilya Miramontes - Last Filed: 03/02/24 20:34> Clinical Impression: Depression, Suicidal ideation Disposition: TRANSFER TO PSYCH HOSP/UNIT Condition: Fair
[2024-03-01] MEDS: LORazepam 1 MG TAB PO STA (03:53)
[2024-03-01 12:16] LABS: Amphetamine Screen,Urine Not Detected (NotDetected); Barbiturate Screen,Urine Not Detected (NotDetected); Benzodiazepines Screen,Urine Detected (NotDetected); Cocaine Screen,Urine Detected (NotDetected); Methadone Screen, Urine Not Detected (NotDetected); Opiate Screen,Urine Not Detected (NotDetected); Oxycodone Screen, Urine Not Detected (NotDetected); Phencyclidine Screen,Urine Not Detected (NotDetected); Tricyclic Antidepressant,Urine Not Detected (NotDetected); Urn Cannabinoid Scrn Detected (NotDetected)
[2024-03-01] MEDS ORDERED: MAGNESIUM HYDROXIDE 2,400 MG/30 ML CUP PO PRN (17:22)
[2024-03-01] MEDS ORDERED: HALOPERIDOL LACTATE 5 MG/ML 1 ML VIAL IM PRN (17:22)
[2024-03-01] MEDS ORDERED: haloperidoL 5 MG TAB PO PRN (17:22)
[2024-03-01] MEDS ORDERED: LORazepam 2 MG/ML INJ IM PRN (17:22)
[2024-03-02 08:46] LABS: Basophils % (A) 1 %; Eosinophils # (A) 0.1 k/uL (0-0.7); Eosinophils % (A) 1 %; HCT 44.9 % (39.0-53.0); HGB 14.3 gm/dL (13.0-17.5); Lymphocytes # (A) 1.8 k/uL (1.0-4.8); Lymphocytes % (A) 27 %; MCH 30.4 pg (25.0-35.0); MCHC 31.8 g/dL (31.0-37.0); MCV 95.7 fL (80.0-100.0); Mean Platelet Volume 7.4; Monocytes # (A) 0.5 k/uL (0-1.0); Monocytes % (A) 7 %; Neutrophils # (A) 4.2 k/uL (1.3-7.7); Neutrophils % (A) 62 %; Platelet Count 280 k/uL (150-450); RBC 4.69 m/uL (4.30-5.90); RDW 13.1 % (11.5-15.5); WBC 6.8 k/uL (3.8-10.6)
[2024-03-02 09:03] LABS: ALT 71 U/L (4-49); AST 73 U/L (17-59); African American GFR (CKD) >90 (>60 ml/min/1.73 sqM); Albumin 3.8 g/dL (3.5-5.0); Alkaline Phosphatase 61 U/L (38-126); Anion Gap 6 mmol/L; Blood Urea Nitrogen 21 mg/dL (9-20); Calcium 9.2 mg/dL (8.4-10.2); Carbon Dioxide 29 mmol/L (22-30); Chloride 106 mmol/L (98-107); Glucose 78 mg/dL (74-99); Non-African American GFR(CKD) >90 (>60 ml/min/1.73 sqM); Potassium 4.1 mmol/L (3.5-5.1); Sodium 141 mmol/L (137-145); Total Bilirubin 1.5 mg/dL (0.2-1.3); Total Protein 6.9 g/dL (6.3-8.2)
--- NOTE | 2024-03-02 09:53 | P.HP ---
Psychiatric H&P - . H&P Date: 03/02/24 History & Physical: Allergies Allergy/AdvReac Type Severity Reaction Status Date / Time ibuprofen Allergy Rash/Hives Verified 03/01/24 02:58 Vital Signs Temp 98.7 F 03/02/24 06:31 Pulse 51 L 03/02/24 06:31 Resp 16 03/02/24 06:31 BP 105/66 03/02/24 06:31 Pulse Ox 100 03/02/24 06:31 FiO2 Intake & Output 03/01/24 03/02/24 03/02/24 18:59 06:59 18:59 Weight 68.748 kg Laboratory Last Values WBC 6.8 k/uL (3.8-10.6) 03/02/24 08:05 RBC 4.69 m/uL (4.30-5.90) 03/02/24 08:05 Hgb 14.3 gm/dL (13.0-17.5) 03/02/24 08:05 Hct 44.9 % (39.0-53.0) 03/02/24 08:05 MCV 95.7 fL (80.0-100.0) 03/02/24 08:05 MCH 30.4 pg (25.0-35.0) 03/02/24 08:05 MCHC 31.8 g/dL (31.0-37.0) 03/02/24 08:05 RDW 13.1 % (11.5-15.5) 03/02/24 08:05 Plt Count 280 k/uL (150-450) 03/02/24 08:05 MPV 7.4 03/02/24 08:05 Neutrophils % 62 % 03/02/24 08:05 Lymphocytes % 27 % 03/02/24 08:05 Monocytes % 7 % 03/02/24 08:05 Eosinophils % 1 % 03/02/24 08:05 Basophils % 1 % 03/02/24 08:05 Neutrophils # 4.2 k/uL (1.3-7.7) 03/02/24 08:05 Lymphocytes # 1.8 k/uL (1.0-4.8) 03/02/24 08:05 Monocytes # 0.5 k/uL (0-1.0) 03/02/24 08:05 Eosinophils # 0.1 k/uL (0-0.7) 03/02/24 08:05 Basophils # 0.0 k/uL (0-0.2) 03/02/24 08:05 Sodium 141 mmol/L (137-145) 03/02/24 08:05 Potassium 4.1 mmol/L (3.5-5.1) 03/02/24 08:05 Chloride 106 mmol/L (98-107) 03/02/24 08:05 Carbon Dioxide 29 mmol/L (22-30) 03/02/24 08:05 Anion Gap 6 mmol/L 03/02/24 08:05 BUN 21 mg/dL (9-20) H 03/02/24 08:05 Creatinine 0.90 mg/dL (0.66-1.25) 03/02/24 08:05 Est GFR (CKD-EPI)AfAm >90 (>60 ml/min/1.73 sqM) 03/02/24 08:05 Est GFR (CKD-EPI)NonAf >90 (>60 ml/min/1.73 sqM) 03/02/24 08:05 Glucose 78 mg/dL (74-99) 03/02/24 08:05 Calcium 9.2 mg/dL (8.4-10.2) 03/02/24 08:05 Total Bilirubin 1.5 mg/dL (0.2-1.3) H 03/02/24 08:05 AST 73 U/L (17-59) H 03/02/24 08:05 ALT 71 U/L (4-49) H 03/02/24 08:05 Alkaline Phosphatase 61 U/L (38-126) 03/02/24 08:05 Total Protein 6.9 g/dL (6.3-8.2) 03/02/24 08:05 Albumin 3.8 g/dL (3.5-5.0) 03/02/24 08:05 TSH 0.737 mIU/L (0.465-4.680) 03/02/24 08:05 Urine Opiates Screen Not Detected (NotDetected) 03/01/24 10:32 Ur Oxycodone Screen Not Detected (NotDetected) 03/01/24 10:32 Urine Methadone Screen Not Detected (NotDetected) 03/01/24 10:32 Ur Barbiturates Screen Not Detected (NotDetected) 03/01/24 10:32 U Tricyclic Antidepress Not Detected (NotDetected) 03/01/24 10:32 Ur Phencyclidine Scrn Not Detected (NotDetected) 03/01/24 10:32 Ur Amphetamines Screen Not Detected (NotDetected) 03/01/24 10:32 U Methamphetamines Scrn Not Detected (NotDetected) 03/01/24 10:32 U Benzodiazepines Scrn Detected (NotDetected) H 03/01/24 10:32 Urine Cocaine Screen Detected (NotDetected) H 03/01/24 10:32 U Marijuana (THC) Screen Detected (NotDetected) H 03/01/24 10:32 SARS-CoV-2 (PCR) Not Detected (Not Detectd) 03/01/24 10:32 03/02/24 09:52 Psychiatric Evaluation Identifying Data: Mr. Florez is 48 years old. Single, black male, who lives in [place], [place] Chief Complaint: Suicidal thoughts. History of Psychiatric Illness- The patient noted that for last 4 days he has been feeling suicidal. The noted that he was feeling depressed for three weeks before he got depressed. He was experiencing symptoms of loss of appetite, loss of sleep, not wanting be out of bed, hearing voices, hearing conversation of many people amongst themselves stating, he will better off , loss of job, worrying a lot, hopelessness, worthlessness and suicidal. The patient noted that he had a similar episode 2 years ago. He was admitted to [facility] for overdose of pills. He had same symptoms as stated above. He had his first episode around in his early twenties. He has had 10-12 such episode since then and has been admitted to different hospitals. He has been to [facility], and [facility]. He admits to 6 suicidal attempts by overdose of pills. The patient noted that he never took medications after discharge or went for out-pt treatment. Past Psychiatric History: As stated above. Past Medication History: Xanax, Ativan, Lexapro. Adderall. Leading questions: The patient admitted to Depression and Anxiety. Admitted to SI. Denied HI. Admits to hearing multiple voices telling him to kill himself. Denied delusional thinking. Drugs and alcohol history: Alcohol and Marijuana. He has been rehab. 1-2 times. He has had blackouts. He denied withdrawal seizures or DTs Tobacco use: One pack a day. Past Medical history: Brugada syndrome. He has a pace maker. Family History of Psychiatric Disorder: The patient does not know. The patient denied. Social History and Family History: The patient was born in [place], [place] and raised in five different places. He grew- up with 2 siblings. He finished GED. His longest job was for 4 years at [employer]. OTC: Ibuprofen Allergies: None as per patient. Objective: MSE: Alert and attentive. Orientation times three Dressed and Groomed: Appropriately. Pleasant and cooperative. Psychomotor Activity: Normal. Speech: Normal in tone, quality, and quantity. Mood: Depressed and anxious. Affect: Consistent with mood. SI or HI: None. Perceptual disturbance: The patient notes hearing voices telling him to kill himself. Thought Content: No paranoia or other delusional thinking noted. Thought Process: Normal. Cognition: Intact Judgment and Insight: Poor. AIMS: Normal Labs: Available labs reviewed. Diagnosis: Major depressive disorder severe, recurrent. Alcohol and Marijuana abuse. Cocaine abuse Plan and Recommendations: Continue current Medications. Add Zoloft 50 mg po daily, Vistaril 25 mg po q6hr prn for anxiety Monitor MS and side effects of medications and adjust medications accordingly. Provide supportive psychotherapy and psychoeducation. The patient provided psychoeducation. Te patient provided with substance abuse counselling and advised to attend AA/NA Smoke cessation therapy. The patient to attend [facility]. CMP, TSH, Lipid Profile, HbA1c. Medication Consent with explanation of risk/benefits and side effects: Explained and obtained.
[2024-03-02] MEDS: NICOTINE 14MG/24HR PATCH TRANSDERM SCH (14:49)
[2024-03-02 17:41] LABS: Chol/HDL Ratio 3.31 Ratio; LDL Cholesterol,Calculated 101.6 mg/dL (0.0-131.0)
[2024-03-02] MEDS: LORazepam 1 MG TAB PO PRN (18:22)
[2024-03-03] MEDS: SERTRALINE 50 MG TAB PO SCH (08:47)
--- NOTE | 2024-03-03 16:21 | P.PN ---
Progress Note - Text Progress Note Date: 03/03/24 . Follow-up Mediation Review Chief Complaint: I am feeling better. Subjective: The patient noted that he is doing much better today. He went to the groups and intend to continue going to [facility] activities. His inter action with staff and peers is good. He has been compliant with medications. he reported no side effects from medications. He had no behavioral issues snice yesterday. The patient has been attending the groups. The participation is adequate. The interaction with staff and peers is good. The patient is compliant with treatment recommendations. Leading questions: The patient admitted to Depression and Anxiety. Denied SI or HI. Denied symptoms consistent with psychosis Sleep and Appetite: Fair. Change in family/ living/job/financial/daily routine: Recently, the patient lost his job, and home. Change in medical condition: No change. Change in medications: No change. Side effects from Medications: None. Allergies: No change. Objective- MSE: Alert and attentive. Orientation times three. Dressed and Groomed: Appropriately. Pleasant and cooperative. Psychomotor Activity: Normal. Speech: Normal in tone, quality, and quantity. Mood: I am better. Affect: Appropriate to the mood. SI or HI: None. Perceptual disturbance: None. Thought Content: No paranoia or other delusional thinking noted. Thought Process: Normal. Cognition: Intact Judgment and Insight: Fair. AIMS: Normal. Labs: No new labs. Diagnosis: No change. Plan and Recommendations: Continue current Medications. Monitor MS and side effects of medications and adjust medications accordingly. Provide supportive psychotherapy. The patient provided psychoeducation and advised The patient provided Substance abuse counseling. Smoke cessation therapy. The patient to attend [facility] activities. Medication Consent with explanation of risk/benefits and side effects: Explained and obtained.
[2024-03-03] MEDS: hydrOXYzine pamoate 25 MG CAP PO PRN (19:07)
[2024-03-04] MEDS: MAG HYDROX/AL HYDROX/SIMETH 355 ML BOTTLE PO PRN (09:55)
--- NOTE | 2024-03-04 11:51 | P.PN ---
Progress Note - Text Progress Note Date: 03/04/24 Follow-up Mediation Review Chief Complaint: I am tired". Subjective: The patient noted that he had diarrhea after eating breakfast and taking his morning Zoloft. He was feeling tired and sick. He feels fine otherwise. The patient intends to attend group after he feels a little better. No other complaints noted. The planned increase of Zoloft is being held at this time. He has been compliant with medications. he reported no side effects from medications except loose motion in the morning. The patient has been attending the groups. The participation is adequate. The interaction with staff and peers is good. The patient is compliant with treatment recommendations. Leading questions: The patient admitted to Depression and Anxiety. Denied SI or HI. Denied symptoms consistent with psychosis Sleep and Appetite: Fair. Change in family/ living/job/financial/daily routine: Recently, the patient lost his job, and home. Change in medical condition: No change. Change in medications: No change. Side effects from Medications: None. Allergies: No change. Objective- MSE: Alert and attentive. Orientation times three. Dressed and Groomed: Appropriately. Pleasant and cooperative. Psychomotor Activity: Normal. Speech: Normal in tone, quality, and quantity. Mood: Anxious. Affect: Appropriate to the mood. SI or HI: None. Perceptual disturbance: None. Thought Content: No paranoia or other delusional thinking noted. Thought Process: Normal. Cognition: Intact Judgment and Insight: Fair. AIMS: Normal. Labs: No new labs. Diagnosis: No change. Plan and Recommendations: Continue current Medications. Monitor MS and side effects of medications and adjust medications accordingly. Provide supportive psychotherapy. The patient provided psychoeducation and advised The patient provided Substance abuse counseling. Smoke cessation therapy. The patient to attend [facility] activities. Medication Consent with explanation of risk/benefits and side effects: Explained and obtained.
--- NOTE | 2024-03-04 23:06 | P.PN ---
Progress Note - Text Progress Note Date: 03/04/24 patient refused medical evaluation at this time, and indicated that he is fine and does not need it
--- NOTE | 2024-03-05 12:14 | P.PN ---
Progress Note - Text Progress Note Date: 03/05/24 Follow-up Mediation Review Chief Complaint: I am fine". Subjective: The patient reported doing fine. He had no loose stools today. He has been attending at least two groups a day. the morning group. Discussed with patient about increasing the Zoloft to 75 mg. The patient agreed and consented. No other complaints noted. The patient noted that he intends to go to one of his friend after discharge. He has been compliant with medications. he reported no side effects from medications. The patient has been attending the groups. The participation is adequate. The interaction with staff and peers is good. The patient is compliant with treatment recommendations. Leading questions: The patient admitted to Depression and Anxiety. Denied SI or HI. Denied symptoms consistent with psychosis Sleep and Appetite: Fair. Change in family/ living/job/financial/daily routine: Recently, the patient lost his job, and home. Change in medical condition: No change. Change in medications: No change. Side effects from Medications: None. Allergies: No change. Objective- MSE: Alert and attentive. Orientation times three. Dressed and Groomed: Appropriately. Pleasant and cooperative. Psychomotor Activity: Normal. Speech: Normal in tone, quality, and quantity. Mood: Anxious. Affect: Appropriate to the mood. SI or HI: None. Perceptual disturbance: None. Thought Content: No paranoia or other delusional thinking noted. Thought Process: Normal. Cognition: Intact Judgment and Insight: Fair. AIMS: Normal. Labs: No new labs. Diagnosis: No change. Plan and Recommendations: Continue current Medications. Monitor MS and side effects of medications and adjust medications accordingly. Provide supportive psychotherapy. The patient provided psychoeducation and advised The patient provided Substance abuse counseling. Smoke cessation therapy. The patient to attend [facility] activities. Medication Consent with explanation of risk/benefits and side effects: Explained and obtained.
[2024-03-05] MEDS: ACETAMINOPHEN TAB 325 MG TAB PO PRN (17:58)
--- NOTE | 2024-03-05 20:28 | P.MDCNMH ---
<Jai Hull - Last Filed: 03/05/24 21:59> History of Present Illness H&P Date: 03/05/24 Chief Complaint: Medical evaluation Patient is a 48-year-old male with a history of psychiatric disorder is seen today for medical evaluation. Patient reports right ankle pain since 6-month which he hurt while playing soccer. Patient reports the pain is not getting better. Reports pain as sharp stinging type, 5/10 when resting, 9/10 on weightbearing. Patient states that Tylenol is not helping with the pain. Patient states that he did not have any imaging done of the right ankle. Denies any swelling. Otherwise, patient denies headaches, blurry vision, shortness of breath, chest pain, fever, chills, nausea, vomiting, abdominal pain, diarrhea, constipation, numbness or weakness in upper or lower extremities. Patient denies history of seizure. His recent lab evaluation shows WBC 6.8, hemoglobin 14.3, hematocrit 44.9, MCV 95.7, platelet count 280, sodium 141, potassium 4.1, chloride 106, bicarb 29, BUN 21, EGFR >90, glucose 78, HbA1c 5.5, AST 73, ALT 71, total bilirubin 1.5. Vitals: Tmax 98.9 F, heart rate 60, respiratory rate 18, blood pressure 99/66, oxygen 99% on room air. Review of systems: Pertinent positives and negatives as discussed in HPI, a complete review of systems was performed and all other systems are negative. Social history: Tobacco: 1 pack a day Alcohol: Alcohol, regular basis Recreational drugs: Marijuana Travel: None Occupation: None Family History: Noncontributory Physical examination: Vital signs reviewed General: non toxic, no distress, appears at stated age, normal weight Derm: no unusual rashes/lesions, warm Head: atraumatic, normocephalic, symmetric Eyes: EOMI, no lid lag, anicteric sclera, pupils equal round reactive to light ENT: Nose and ears atraumatic Neck: No cervical lymphadenopathy, trachea midline, supple Mouth: no lip lesion, mucus membranes moist Cardiovascular: S1S2 reg, no murmur, positive dorsalis pedis pulse bilateral, no edema Lungs: CTA bilateral, no rhonchi, no rales, no accessory muscle use Abdominal: soft, nontender to palpation, no guarding Ext: Active and passive range of motion of the right ankle is limited due to pain in dorsiflexion plantarflexion inversion and eversion. No erythema, tenderness upon touch, no swelling. Gait is normal. Sensation intact in all 4 extremities. Muscle strength 5 out of 5 in all 4 extremities grossly, no gross muscle atrophy, no contractures, Neuro: CN II-XI grossly intact, no gross focal neuro deficits Psych: Alert, oriented, appropriate affect Assessment/Plan: 48-year-old male with history of psychiatric disorder is seen for medical evaluation. Patient is complaining of right ankle pain since 6-month likely sports related injury. - Right ankle sprain Continue with Tylenol to 650 mg p.o. every 4 hours as needed for pain X-ray of the right foot is not required, foot/ankle fracture unlikely -Elevated liver enzymes, likely due to history of alcohol abuse Total bilirubin 1.5, AST 73, ALT 71 Continue monitoring LFTs -Psychiatric disorders Manage as per psychiatrist Past Medical History Past Medical History: No Reported History Additional Past Medical History / Comment(s): HEP B, HEP C, abnormal heart beat History of Any Multi-Drug Resistant Organisms: None Reported Past Surgical History: Ear Surgery Additional Past Surgical History / Comment(s): Tubes in bilat ears as a child Past Psychological History: No Psychological Hx Reported Smoking Status: Current every day smoker Past Alcohol Use History: None Reported Past Drug Use History: Cocaine, Marijuana - Past Family History Mother Family Medical History: No Reported History Father Family Medical History: Chest Pain / Angina Medications and Allergies Home Medications Medication Instructions Recorded Confirmed Type No Known Home Medications 03/01/24 03/01/24 History Allergies Allergy/AdvReac Type Severity Reaction Status Date / Time ibuprofen Allergy Rash/Hives Verified 03/01/24 02:58 Physical Exam Vitals: Vital Signs Temp Pulse Resp BP Pulse Ox 03/05/24 06:00 97.9 F 60 18 99/66 99 Results CBC & Chem 7: 03/02/24 08:05 03/02/24 08:05 <Socorro Paige - Last Filed: 03/05/24 22:23> History of Present Illness I have seen and evaluated the patient today. I Discussed the case with the resident and agree with the resident's findings as documented in the resident's note. 48 year old male coming in for psych eval due to depression and suicidal ideation , reported chronic right ankle pain right ankle pain , chronic pain control with tylenol consider OP follow up with ortho if needed alcohol dependance and abuse Benzo per CIWA monitor for alcohol withdrawal thiamine daily transaminitis suspected secondary to alcohol abuse check hepatitis panel continue to monitor depression and suicidal ideation management per psych tobacco dependance nicotine replacement therapy offered counseled to quit smoking hyperlipidemia slightly elevated LDL , 101.6 consider lifestyle modification , and dietary changes recheck in 3 months labs otherwise , overall unremarkable WBC 6.8, Hgb 14 stable from medical stand point thanks for this consultation Physical Exam Vitals: Vital Signs Temp Pulse Resp BP Pulse Ox 03/05/24 06:00 97.9 F 60 18 99/66 99 Results CBC & Chem 7: 03/02/24 08:05 03/02/24 08:05
[2024-03-06] MEDS: SERTRALINE 50 MG TAB PO SCH (08:07)
--- NOTE | 2024-03-06 11:52 | P.PN ---
Subjective Progress Note Date: 03/06/24 Patient Name: Willie Florez Date of : 77 Patient Status: Inpatient Attending Provider: Gordo Kinney Date: 03/06/24 Initialization Date: 03/05/24 12:12 Subjective data: The patient was seen and chart was reviewed and case discussed with nursing staff Patient reports that he is currently in the hospital because that he has a drink ing problem He admits that he is starting to feel better and that the medications does seem to be helping Denies any auditory or visual hallucinations He denies any suicidal homicidal ideations The patient reported doing fine.. He has been attending groups the patient admits that he has been homeless and that he intends to go to one of his friend after discharge. He has been compliant with medications. he reported no side effects from medications. MSE: Alert and attentive. Orientation times three. Dressed and Groomed: Appropriately. Pleasant and cooperative. Psychomotor Activity: Normal. Speech: Normal in tone, quality, and quantity. Mood: Anxious. Affect: Appropriate to the mood. SI or HI: None. Perceptual disturbance: None. Thought Content: No paranoia or other delusional thinking noted. Thought Process: Normal. Cognition: Intact Judgment and Insight: Fair. AIMS: Normal. Labs: No new labs. Diagnostic impression: Adjustment disorder with mixed emotional features Major depressive disorder acute Alcohol use disorder chronic Plan and Recommendations: Agree with the current treatment plan Continue current Medications. Monitor MS and side effects of medications and adjust medications accordingly. Provide supportive psychotherapy. The patient provided psychoeducation and advised The patient provided Substance abuse counseling. Smoke cessation therapy. The patient to attend cortez activities. Medication Consent with explanation of risk/benefits and side effects: Explained and obtained. Abhijit Gonzalez MD Active Medications Generic Name Dose Route Start Last Admin Trade Name Freq PRN Reason Stop Dose Admin Acetaminophen 650 mg 03/01/24 17:22 03/05/24 17:58 Acetaminophen Tab 325 Mg Tab PO 650 mg Q4HR PRN Administration Mild Pain (Scale 1 to 3) Al Hydroxide/Mg Hydroxide 30 ml 03/01/24 17:22 03/04/24 09:55 Mag Hydrox/Al Hydrox/Simeth 355 Ml Bottle PO 30 ml Q4HR PRN Administration GI Upset Haloperidol 5 mg 03/01/24 17:22 Haloperidol 5 Mg Tab PO Q6HR PRN Agitation or Acute Psychosis Haloperidol Lactate 5 mg 03/01/24 17:22 Haloperidol Lactate 5 Mg/Ml 1 Ml Vial IM Q6HR PRN Agitation or Acute Psychosis Hydroxyzine Pamoate 25 mg 03/02/24 09:45 03/05/24 08:26 Hydroxyzine Pamoate 25 Mg Cap PO 25 mg Q6HR PRN Administration Anxiety Lorazepam 1 mg 03/01/24 17:22 03/05/24 22:57 Lorazepam 1 Mg Tab PO 1 mg Q6HR PRN Administration Agitation or Acute Anxiety Lorazepam 1 mg 03/01/24 17:22 Lorazepam 2 Mg/Ml Inj IM Q6HR PRN Agitation or Acute Anxiety Magnesium Hydroxide 2,400 mg 03/01/24 17:22 Magnesium Hydroxide 2,400 Mg/30 Ml Cup PO DAILY PRN Constipation Nicotine 1 patch 03/02/24 09:00 03/06/24 08:07 Nicotine 14mg/24hr Patch TRANSDERM 1 patch DAILY DENA Administration Sertraline HCl 75 mg 03/06/24 09:00 03/06/24 08:07 Sertraline 50 Mg Tab PO 75 mg DAILY DENA Administration Objective - Vital Signs Vital signs: Vital Signs Temp 97.7 F 03/06/24 06:00 Pulse 60 03/06/24 06:00 Resp 17 03/06/24 06:00 BP 99/63 03/06/24 06:00 Pulse Ox 99 03/06/24 06:00 FiO2 - Labs CBC & Chem 7: 03/02/24 08:05 03/02/24 08:05
--- NOTE | 2024-03-07 08:43 | P.PN ---
Subjective Progress Note Date: 03/07/24 Patient Name: Willie Florez Date of : 77 Patient Status: Inpatient Attending Provider: Gordo Kinney Date: 03/07/24 Initialization Date: 03/05/24 12:12 Subjective data: Patient was seen chart was reviewed and case discussed with nursing staff The patient reports that he is feeling a lot better He states that he is planning to go to his one of his friends after discharge He reports that he is slept better and that he is not experiencing any shakes or tremors He denies that he is going through any withdrawals anymore He states that he plans to stay sober and attend AA meetings as well as get some ongoing outpatient counseling He denies any suicidal homicidal ideations The patient reported doing fine.. He has been attending groups He has been compliant with medications. he reported no side effects from medications. MSE: Mental Status Exam Psychomotor Activity: _Normal activity Appearance: _Good grooming and hygiene Speech: _Normal rate and volume Thought Process: _Goal directed Thought Content: _Appropriate content Orientation and Cognition: _Oriented to time and place Mood: _Appropriate mood Affect: _Appropriate affect Suicidal Ideation : _Denies suicidal ideation in the hospital Mental Status Exam Psychomotor Activity: _Normal activity Appearance: _Good grooming and hygiene Speech: _Normal rate and volume Thought Process: _Goal directed Thought Content: _Appropriate content Orientation and Cognition: _Oriented to time and place Mood: _Appropriate mood Affect: _Appropriate affect Suicidal Ideation : _Denies suicidal ideation in the hospital Diagnostic impression: Adjustment disorder with mixed emotional features Major depressive disorder acute Alcohol use disorder chronic Plan and Recommendations: Agree with the current treatment plan Continue current Medications. Monitor MS and side effects of medications and adjust medications accordingly. Provide supportive psychotherapy. The patient provided psychoeducation and advised The patient provided Substance abuse counseling. Smoke cessation therapy. The patient to attend cortez activities. Medication Consent with explanation of risk/benefits and side effects: Explained and obtained. Abhijit Gonzalez MD Active Medications Generic Name Dose Route Start Last Admin Trade Name Freq PRN Reason Stop Dose Admin Acetaminophen 650 mg 03/01/24 17:22 03/05/24 17:58 Acetaminophen Tab 325 Mg Tab PO 650 mg Q4HR PRN Administration Mild Pain (Scale 1 to 3) Al Hydroxide/Mg Hydroxide 30 ml 03/01/24 17:22 03/04/24 09:55 Mag Hydrox/Al Hydrox/Simeth 355 Ml Bottle PO 30 ml Q4HR PRN Administration GI Upset Haloperidol 5 mg 03/01/24 17:22 Haloperidol 5 Mg Tab PO Q6HR PRN Agitation or Acute Psychosis Haloperidol Lactate 5 mg 03/01/24 17:22 Haloperidol Lactate 5 Mg/Ml 1 Ml Vial IM Q6HR PRN Agitation or Acute Psychosis Hydroxyzine Pamoate 25 mg 03/02/24 09:45 03/05/24 08:26 Hydroxyzine Pamoate 25 Mg Cap PO 25 mg Q6HR PRN Administration Anxiety Lorazepam 1 mg 03/01/24 17:22 03/05/24 22:57 Lorazepam 1 Mg Tab PO 1 mg Q6HR PRN Administration Agitation or Acute Anxiety Lorazepam 1 mg 03/01/24 17:22 Lorazepam 2 Mg/Ml Inj IM Q6HR PRN Agitation or Acute Anxiety Magnesium Hydroxide 2,400 mg 03/01/24 17:22 Magnesium Hydroxide 2,400 Mg/30 Ml Cup PO DAILY PRN Constipation Nicotine 1 patch 03/02/24 09:00 03/06/24 08:07 Nicotine 14mg/24hr Patch TRANSDERM 1 patch DAILY DENA Administration Sertraline HCl 75 mg 03/06/24 09:00 03/06/24 08:07 Sertraline 50 Mg Tab PO 75 mg DAILY DENA Administration Objective - Vital Signs Vital signs: Vital Signs Temp 98.5 F 03/07/24 06:25 Pulse 97 03/07/24 06:25 Resp 16 03/07/24 06:25 BP 98/67 03/07/24 06:25 Pulse Ox 99 03/07/24 06:25 FiO2 - Labs CBC & Chem 7: 03/02/24 08:05 03/02/24 08:05
[2024-03-08 07:06] VITALS: BP 92/57; PULSE 45; RESP 14; TEMP 98.4
--- NOTE | 2024-03-08 10:48 | P.DS ---
Providers Date of admission: 03/01/24 17:11 Expected date of discharge: 03/08/24 Attending physician: Gordo Kinney MD Consults: 03/01/24 17:22 Consult Physician Routine Consulting Provider: Janessa Chan Consult Reason/Comments: H&P and medical Do you want consulting provider notified?: Yes Primary care physician: Stated None - Discharge Diagnosis(es) (1) Major depressive disorder, recurrent severe without psychotic features Current Visit: Yes Status: Acute Priority: High (2) Marihuana abuse Current Visit: Yes Status: Acute Priority: Medium (3) Alcohol abuse Current Visit: Yes Status: Acute Priority: Medium (4) Cocaine abuse Current Visit: Yes Status: Acute Priority: Medium Hospital Course: Discharge Summary HPI: Identifying Data: Mr. Florez is 48 years old. Single, black male, who lives in [place], [place] Chief Complaint: Suicidal thoughts. History of Psychiatric Illness- The patient noted that for last 4 days he has been feeling suicidal. The noted that he was feeling depressed for three weeks before he got depressed. He was experiencing symptoms of loss of appetite, loss of sleep, not wanting be out of bed, hearing voices, hearing conversation of many people amongst themselves stating, he will better off , loss of job, worrying a lot, hopelessness, worthlessness and suicidal. The patient noted that he had a similar episode 2 years ago. He was admitted to [facility] for overdose of pills. He had same symptoms as stated above. He had his first episode around in his early twenties. He has had 10-12 such episode since then and has been admitted to different hospitals. He has been to [facility] and [facility]. He admits to 6 suicidal attempts by overdose of pills. The patient noted that he never took medications after discharge or went for out-pt treatment. Past Psychiatric History: As stated above. Past Medication History: Xanax, Ativan, Lexapro. Adderall. Leading questions: The patient admitted to Depression and Anxiety. Admitted to SI. Denied HI. Admits to hearing multiple voices telling him to kill himself. Denied delusional thinking. Drugs and alcohol history: Alcohol and Marijuana. He has been rehab. 1-2 times. He has had blackouts. He denied withdrawal seizures or DTs Tobacco use: One pack a day. Past Medical history: Brugada syndrome. He has a pace maker. Hospital Course: After admission, the patient was involved in pharmacotherapy, cortez milieu, and individual psychodynamic psychotherapy. The patient was started on Zoloft. The dose was titrated to obtain the desire effects. The patient tolerated medications well without any side effects. The patient was also involved in cortez activities. The patient attended the groups and participated well. The patient interacted with peers and staff well. The patient slowly started showing improvement. The hospital course was uneventful. The patient symptoms of depression, suicidal and homicidal ideations abated. The patient was stable to be discharged to out-patient care. The patient has made arrangements to go his friends house, [place] to reside with after discharge. The patient did not have any guns or weapons in possession at home. MSE: Alert and attentive. Orientation times three Dressed and Groomed: Appropriately. Pleasant and cooperative. Psychomotor Activity: Normal. Speech: Normal in tone, quality, and quantity. Mood: Depressed and anxious. Affect: Consistent with mood. SI or HI: None. Perceptual disturbance: The patient notes hearing voices telling him to kill himself. Thought Content: No paranoia or other delusional thinking noted. Thought Process: Normal. Cognition: Intact Judgment and Insight: Poor. AIMS: Normal . Diagnosis: Major depressive disorder severe, recurrent. Alcohol and Marijuana abuse. Cocaine abuse Plan: The patient to be discharged today. The patient has attained good improvement since admission. He is stable to be followed as an outpatient. The patient is not suicidal or Homicidal. He does not pose any harm to self or others. The patient remains at a greater risk of self-harm or harm to others than general population on a chronic basis due to psychiatric illness and substance abuse. The patient will continue taking following medication post discharge. The importance of medication compliance and maintaining regular appointments at psychiatric out-pt and PCP clinic was explained and encouraged. The patient was also advised to seek alcohol counseling and attend AA/NA meetings. The understood and agreed with the recommendations. biscuit factory worker to arrange for and conduct family meeting to ensure safety upon discharge and answer any questions. The marriage and family social worker to arrange for patients follow-up appointments at [facility] for psychiatric care along with follow-up with PCP. The patient provided psychoeducation. Advised to call 911 or go to nearest ED or call this hospital in case of acute worsening of symptomatology, severe side effects or having suicidal, homicidal thoughts and feeling unsafe at home. Patient Condition at Discharge: Stable Plan - Discharge Summary Discharge Rx Participant: No New Discharge Prescriptions: New Sertraline [Zoloft] 75 mg PO DAILY 15 Days #23 tab Discharge Medication List Sertraline [Zoloft] 75 mg PO DAILY 15 Days #23 tab 03/08/24 [Rx] Follow up Appointment(s)/Referral(s): [facility] [NON-STAFF] - 1 Week Patient Instructions/Handouts: How to Stop Smoking (DC), Depression (DC), Abuse of Alcohol (DC) Activity/Diet/Wound Care/Special Instructions: Avoid the use of street drugs and alcohol. Take all medications as prescribed. When you are in need of refills on your medications, please contact your medical provider and/or outpatient psychiatrist/provider to have this done. Please go to your scheduled outpatient appointment for aftercare treatment. If symptoms return or become worse, call the crisis line at and/or go to the nearest emergency room for evaluation. National Suicide Hotline 988 Discharge/Stand Alone Forms: AA Meetings [address] - [facility], AA Meetings [facility]
== END 2024-03-08 13:20 | disposition home or self-care (01) | DRG 885 ==
LOC: EC 02:54 → 3MHU 17:11
PROVIDERS: ADMIT Psychiatry & Neurology Psychiatry; ATTEND Psychiatry & Neurology Psychiatry
DX: F33.2 Major depressive disorder, recurrent severe without psychotic features (principal); R45.851 Suicidal ideations; Z59.00 Homelessness unspecified; F12.10 Cannabis abuse, uncomplicated; F14.10 Cocaine abuse, uncomplicated; F10.10 Alcohol abuse, uncomplicated; E78.5 Hyperlipidemia, unspecified; F17.210 Nicotine dependence, cigarettes, uncomplicated; F43.23 Adjustment disorder with mixed anxiety and depressed mood; G89.29 Other chronic pain; S93.401A Sprain of unspecified ligament of right ankle, initial encounter; Z56.0 Unemployment, unspecified; Z79.899 Other long term (current) drug therapy; Z11.52 Encounter for screening for COVID-19
CPT/HCPCS: 80053; 80061; 80306; 82075; 83036; 84443; 85025; 87635

== ENCOUNTER 2024-03-09 06:05 | Inpatient (IN) | payer OTHER ==
--- NOTE | 2024-03-09 06:37 | ED ---
Chest Pain HPI - General Source: patient, RN notes reviewed Mode of arrival: ambulatory Limitations: no limitations - History of Present Illness MD Complaint: chest pain <Leeanna Obrien - Last Filed: 03/09/24 06:37> <Venu Almaguer - Last Filed: 03/09/24 12:12> - General Chief Complaint: Arrhythmia/Palpitations Stated Complaint: Heart Palpitations Time Seen by Provider: 03/09/24 06:36 - History of Present Illness Initial Comments: Quick Note: This is a 48-year-old male who presents to the emergency department for cardiac concerns. Around 4 AM he started to feel lightheaded and his ICD shocked him. Patient has a history of Brugada syndrome and states that he has never been shocked by his ICD before. Currently has chest pain and generally feels very unwell. (Leeanna Obrien) Reevaluation patient states that he is actually here for mental health, suicidal ideation with suicidal plan. He states he was discharged from [facility]. yesterday and states he is not feeling better. He believes his chest pain was related to the depression, suicidal ideation and anxiety. (Venu Almaguer) - Related Data Previous Rx's Medication Instructions Recorded Sertraline [Zoloft] 75 mg PO DAILY 15 Days #23 tab 03/08/24 Allergies Allergy/AdvReac Type Severity Reaction Status Date / Time ibuprofen Allergy Rash/Hives Verified 03/09/24 06:13 Review of Systems ROS Other: All systems not noted in ROS Statement are negative. <Leeanna Obrien - Last Filed: 03/09/24 06:37> ROS Other: All systems not noted in ROS Statement are negative. <Venu Almaguer - Last Filed: 03/09/24 12:12> ROS Statement: Those systems with pertinent positive or pertinent negative responses have been documented in the HPI. Past Medical History Past Medical History: No Reported History Additional Past Medical History / Comment(s): HEP B, HEP C, abnormal heart beat History of Any Multi-Drug Resistant Organisms: None Reported Past Surgical History: Ear Surgery Additional Past Surgical History / Comment(s): Tubes in bilat ears as a child Past Psychological History: No Psychological Hx Reported Smoking Status: Current every day smoker Past Alcohol Use History: None Reported Past Drug Use History: Cocaine, Marijuana - Past Family History Mother Family Medical History: No Reported History Father Family Medical History: Chest Pain / Angina <Leeanna Obrien - Last Filed: 03/09/24 06:37> General Exam Limitations: no limitations <Leeanna Obrien - Last Filed: 03/09/24 06:37> General appearance: alert, in no apparent distress Head exam: Present: atraumatic, normocephalic Eye exam: Present: normal appearance, PERRL ENT exam: Present: normal exam Neck exam: Present: normal inspection Respiratory exam: Present: normal lung sounds bilaterally. Absent: respiratory distress, wheezes Cardiovascular Exam: Present: regular rate, normal rhythm GI/Abdominal exam: Present: soft. Absent: distended, tenderness, guarding Extremities exam: Present: normal inspection, normal capillary refill. Absent: pedal edema Neurological exam: Present: alert, oriented X3, CN II-XII intact. Absent: motor sensory deficit Psychiatric exam: Present: depressed, flat affect, suicidal ideation Skin exam: Present: warm, dry, intact <Venu Almaguer - Last Filed: 03/09/24 12:12> - General Exam Comments Initial Comments: Visual Physical Exam Vital signs reviewed General: Well-appearing, nontoxic, no acute distress. Head: Normocephalic, atraumatic Eyes: PERRLA, EOMI ENT: Airway patent Chest: Nonlabored breathing Skin: No visual rash, normal skin tone Neuro: Alert and oriented 3 Musculoskeletal: No gross abnormalities (Leeanna Obrien) Course Vital Signs 03/09/24 06:13 Temperature 98.1 F Pulse Rate 87 Respiratory 24 Rate Blood Pressure 100/65 O2 Sat by Pulse 100 Oximetry Chest Pain [facility] <Leeanna Obrien - Last Filed: 03/09/24 06:37> <Venu Almaguer - Last Filed: 03/09/24 12:12> - [facility] I performed the QuickNote portion of this chart. Signed Leeanna Obrien PA-C. (Leeanna Obrien) Was pt. sent in by a medical professional or institution ([facility], OPTICAL DESIGNER, urgent care, hospital, or senior care...) When possible be specific @ -No Did you speak to anyone other than the patient for history (EMS, parent, family, police, friend...)? What history was obtained from this source @ -No Did you review nursing and triage notes (agree or disagree)? Why? @ -I reviewed and agree with nursing and triage notes Were old charts reviewed (outside hosp., previous admission, EMS record, old EKG, old radiological studies, urgent care reports/EKG's, senior care records)? Report findings @ -No old charts were reviewed Differential Mental Health Depression, anxiety, bipolar, psychosis, schizophrenia, borderline personality, situational depression, adjustment disorder, behavioral disorder, brain tumor, malingering, substance abuse, encephalopathy, medication reaction, dementia, hypothyroidism, degenerative neurologic disorder, lupus.... This is not meant to be all-inclusive list EKG interpreted by me (3pts min.). @ -Sinus rhythm rate of 82, NM interval 172, QRS duration 102, QTc [address] segment elevation. X-rays interpreted by me (1pt min.). @ -None done CT interpreted by me (1pt min.). @ -None done U/S interpreted by me (1pt. min.). @ -None done What testing was considered but not performed or refused? (CT, X-rays, U/S, labs)? Why? @ -None What meds were considered but not given or refused? Why? @ -None Did you discuss the management of the patient with other professionals (professionals i.e. , PA, OPTICAL DESIGNER, lab, RT, psych nurse, social services analyst, bulk coolers installer, teacher, audit officer, lining caser)? Give summary @ -No Was smoking cessation discussed for >3mins.? @ -No Was critical care preformed (if so, how long)? @ -No Were there social determinants of health that impacted care today? How? (Homelessness, low income, unemployed, alcoholism, drug addiction, transportation, low edu. Level, literacy, decrease access to med. care, snf, rehab)? @ -No Was there de-escalation of care discussed even if they declined (Discuss DNR or withdrawal of care, Hospice)? DNR status @ -No What co-morbidities impacted this encounter? (DM, HTN, Smoking, COPD, CAD, Cancer, CVA, ARF, Chemo, Hep., AIDS, mental health diagnosis, sleep apnea, morbid obesity)? @ -None Was patient admitted / discharged? Hospital course, mention meds given and route, prescriptions, significant lab abnormalities, going to OR and other pertinent info. @ -Patient medically cleared and evaluated by EPS, felt to be in need of admission for suicidal ideation with plan. I agree with this assessment. Undiagnosed new problem with uncertain prognosis? @ -No Drug Therapy requiring intensive monitoring for toxicity (Heparin, Nitro, Insulin, Cardizem)? @ -No Were any procedures done? @ -No Diagnosis/symptom? @ -Suicidal ideation, depression Acute, or Chronic, or Acute on Chronic? @ -Default Uncomplicated (without systemic symptoms) or Complicated (systemic symptoms)? @ -Default Side effects of treatment? @ -No Exacerbation, Progression, or Severe Exacerbation? @ -No Poses a threat to life or bodily function? How? (Chest pain, USA, AR, pneumonia, PE, COPD, DKA, ARF, appy, cholecystitis, CVA, Diverticulitis, Homicidal, Suicidal, threat to staff... and all critical care pts) @ -yes, risk of self-harm (Venu Almaguer) Disposition <Leeanna Obrien - Last Filed: 03/09/24 06:37> Is patient prescribed a controlled substance at d/c from ED?: No Time of Disposition: 12:12 <Venu Almaguer - Last Filed: 03/09/24 12:12> Clinical Impression: Depression, Suicidal ideation Disposition: ADMITTED IP TO THIS HOSP Condition: Stable Referrals: None,Stated [Primary Care Provider] - 1-2 days
[2024-03-09 06:47] LABS: Basophils % (A) 0 %; Eosinophils # (A) 0.1 k/uL (0-0.7); Eosinophils % (A) 1 %; HCT 46.7 % (39.0-53.0); HGB 15.3 gm/dL (13.0-17.5); Lymphocytes # (A) 2.4 k/uL (1.0-4.8); Lymphocytes % (A) 20 %; MCH 30.9 pg (25.0-35.0); MCHC 32.8 g/dL (31.0-37.0); MCV 94.3 fL (80.0-100.0); Mean Platelet Volume 7.4; Monocytes # (A) 0.7 k/uL (0-1.0); Monocytes % (A) 6 %; Neutrophils # (A) 8.7 k/uL (1.3-7.7); Neutrophils % (A) 72 %; Platelet Count 277 k/uL (150-450); RBC 4.95 m/uL (4.30-5.90); WBC 12.1 k/uL (3.8-10.6)
--- NOTE | 2024-03-09 06:52 | XR ---
EXAMINATION TYPE: XR chest 2V DATE OF EXAM: 03/09/2024 COMPARISON: 09/12/2022 INDICATION: Chest pain TECHNIQUE: Frontal and lateral views of the chest are obtained. FINDINGS: The heart size is normal. The pulmonary vasculature is normal. The lungs are clear. IMPRESSION: 1. No acute pulmonary process.
[2024-03-09 06:55] LABS: ALT 97 U/L (4-49); AST 80 U/L (17-59); African American GFR (CKD) >90 (>60 ml/min/1.73 sqM); Albumin 4.6 g/dL (3.5-5.0); Alkaline Phosphatase 71 U/L (38-126); Anion Gap 11 mmol/L; Blood Urea Nitrogen 22 mg/dL (9-20); Calcium 9.6 mg/dL (8.4-10.2); Carbon Dioxide 23 mmol/L (22-30); Chloride 104 mmol/L (98-107); Glucose 78 mg/dL (74-99); Magnesium 1.8 mg/dL (1.6-2.3); Non-African American GFR(CKD) >90 (>60 ml/min/1.73 sqM); Potassium 4.1 mmol/L (3.5-5.1); Sodium 138 mmol/L (137-145); Total Bilirubin 0.5 mg/dL (0.2-1.3)
[2024-03-09 06:56] LABS: Partial Thromboplastin Time 24.2 sec (22.0-30.0); Prothrombin Time 11.1 sec (10.0-12.5)
[2024-03-09] MEDS ORDERED: MAG HYDROX/AL HYDROX/SIMETH 355 ML BOTTLE PO PRN (16:09)
[2024-03-09] MEDS ORDERED: MAGNESIUM HYDROXIDE 2,400 MG/30 ML CUP PO PRN (16:09)
[2024-03-09] MEDS ORDERED: HALOPERIDOL LACTATE 5 MG/ML 1 ML VIAL IM PRN (16:13)
[2024-03-09] MEDS ORDERED: LORazepam 2 MG/ML INJ IM PRN (16:13)
[2024-03-09] MEDS: LORazepam 1 MG TAB PO PRN (17:42)
[2024-03-09 17:45] LABS: Appearance,Urine Clear (Clear); Bilirubin,Urine Negative (Negative); Blood,Urine Negative (Negative); Color,Urine Yellow; Glucose,Urine (UA) Negative (Negative); Ketones,Urine Negative (Negative); Leukocyte Esterase,Urine Negative (Negative); Nitrite,Urine Negative (Negative); Protein,Urine Trace (Negative); Specific Gravity,Urine 1.027 (1.001-1.035)
--- NOTE | 2024-03-09 23:48 | P.PN ---
Progress Note - Text Progress Note Date: 03/09/24 Attempted to see the patient in the mental health unit. The patient refused to be seen or be evaluated. Will attempt again tomorrow.
[2024-03-10 03:17] LABS: Urine Alcohol Negative (Negative); Urine Barbiturate Negative (Negative); Urine Cocaine Positive (Negative); Urine Methadone Negative (Negative); Urine Opiates Negative (Negative); Urine Phencyclidine Negative (Negative)
[2024-03-10] MEDS: SERTRALINE 25 MG TAB PO SCH (09:03)
[2024-03-10] MEDS: NICOTINE 14MG/24HR PATCH TRANSDERM SCH (09:03)
--- NOTE | 2024-03-10 09:15 | P.HP ---
Psychiatric H&P - . H&P Date: 03/10/24 History & Physical: Allergies Allergy/AdvReac Type Severity Reaction Status Date / Time ibuprofen Allergy Rash/Hives Verified 03/09/24 13:10 Vital Signs Temp 97.7 F 03/09/24 17:50 Pulse 60 03/10/24 06:51 Resp 18 03/09/24 17:50 BP 102/71 03/10/24 06:51 Pulse Ox 97 03/09/24 17:50 FiO2 Intake & Output 03/09/24 03/10/24 03/10/24 18:59 06:59 18:59 Weight 67.449 kg Laboratory Last Values WBC 12.1 k/uL (3.8-10.6) H 03/09/24 06:27 RBC 4.95 m/uL (4.30-5.90) 03/09/24 06:27 Hgb 15.3 gm/dL (13.0-17.5) 03/09/24 06:27 Hct 46.7 % (39.0-53.0) 03/09/24 06:27 MCV 94.3 fL (80.0-100.0) 03/09/24 06:27 MCH 30.9 pg (25.0-35.0) 03/09/24 06:27 MCHC 32.8 g/dL (31.0-37.0) 03/09/24 06:27 RDW 13.0 % (11.5-15.5) 03/09/24 06:27 Plt Count 277 k/uL (150-450) 03/09/24 06:27 MPV 7.4 03/09/24 06:27 Neutrophils % 72 % 03/09/24 06:27 Lymphocytes % 20 % 03/09/24 06:27 Monocytes % 6 % 03/09/24 06:27 Eosinophils % 1 % 03/09/24 06:27 Basophils % 0 % 03/09/24 06:27 Neutrophils # 8.7 k/uL (1.3-7.7) H 03/09/24 06:27 Lymphocytes # 2.4 k/uL (1.0-4.8) 03/09/24 06:27 Monocytes # 0.7 k/uL (0-1.0) 03/09/24 06:27 Eosinophils # 0.1 k/uL (0-0.7) 03/09/24 06:27 Basophils # 0.0 k/uL (0-0.2) 03/09/24 06:27 PT 11.1 sec (10.0-12.5) 03/09/24 06:27 INR 1.0 (<1.2) 03/09/24 06:27 APTT 24.2 sec (22.0-30.0) 03/09/24 06:27 Sodium 138 mmol/L (137-145) 03/09/24 06:27 Potassium 4.1 mmol/L (3.5-5.1) 03/09/24 06:27 Chloride 104 mmol/L (98-107) 03/09/24 06:27 Carbon Dioxide 23 mmol/L (22-30) 03/09/24 06:27 Anion Gap 11 mmol/L 03/09/24 06:27 BUN 22 mg/dL (9-20) H 03/09/24 06:27 Creatinine 0.89 mg/dL (0.66-1.25) 03/09/24 06:27 Est GFR (CKD-EPI)AfAm >90 (>60 ml/min/1.73 sqM) 03/09/24 06:27 Est GFR (CKD-EPI)NonAf >90 (>60 ml/min/1.73 sqM) 03/09/24 06:27 Glucose 78 mg/dL (74-99) 03/09/24 06:27 Calcium 9.6 mg/dL (8.4-10.2) 03/09/24 06:27 Magnesium 1.8 mg/dL (1.6-2.3) 03/09/24 06:27 Total Bilirubin 0.5 mg/dL (0.2-1.3) 03/09/24 06:27 AST 80 U/L (17-59) H 03/09/24 06:27 ALT 97 U/L (4-49) H 03/09/24 06:27 Alkaline Phosphatase 71 U/L (38-126) 03/09/24 06:27 Troponin I <0.012 ng/mL (0.000-0.034) 03/09/24 06:27 Total Protein 8.0 g/dL (6.3-8.2) 03/09/24 06:27 Albumin 4.6 g/dL (3.5-5.0) 03/09/24 06:27 Urine Color Yellow 03/09/24 17:18 Urine Appearance Clear (Clear) 03/09/24 17:18 Urine pH 6.0 (5.0-8.0) 03/09/24 17:18 Ur Specific [place] 1.027 (1.001-1.035) 03/09/24 17:18 Urine Protein Trace (Negative) H 03/09/24 17:18 Urine Glucose (UA) Negative (Negative) 03/09/24 17:18 Urine Ketones Negative (Negative) 03/09/24 17:18 Urine Blood Negative (Negative) 03/09/24 17:18 Urine Nitrite Negative (Negative) 03/09/24 17:18 Urine Bilirubin Negative (Negative) 03/09/24 17:18 Urine Urobilinogen 2.0 mg/dL (<2.0) 03/09/24 17:18 Ur Leukocyte Esterase Negative (Negative) 03/09/24 17:18 Urine Opiates Screen Negative (Negative) 03/09/24 17:18 Urine Methadone Screen Negative (Negative) 03/09/24 17:18 Ur Propoxyphene Screen Negative (Negative) 03/09/24 17:18 Urine Barbiturates Negative (Negative) 03/09/24 17:18 Ur Phencyclidine Scrn Negative (Negative) 03/09/24 17:18 Ur Amphetamine Screen Negative (Negative) 03/09/24 17:18 U Benzodiazepines Scrn Negative (Negative) 03/09/24 17:18 Urine Cocaine Screen Positive (Negative) A 03/09/24 17:18 U Cannabinoids Screen Positive (Negative) A 03/09/24 17:18 Urine Alcohol Negative (Negative) 03/09/24 17:18 U Creatinine Drug Scrn 217.0 mg/dL (>=20.0) 03/09/24 17:18 SARS-CoV-2 (PCR) Not Detected (Not Detectd) 03/09/24 14:05 03/10/24 09:14 Psychiatric Evaluation Identifying Data: Mr. Florez is 48 years old. Single, black male, who lives in [place], [place] Chief Complaint: Suicidal thoughts. History of Psychiatric Illness- The patient noted that for last 4 days he has been feeling suicidal. The noted that he was feeling depressed for three weeks before he got depressed. He was experiencing symptoms of loss of appetite, loss of sleep, not wanting be out of bed, hearing voices, hearing conversation of many people amongst themselves stating, he will better off , loss of job, worrying a lot, hopelessness, worthlessness and suicidal. The patient noted that he had a similar episode 2 years ago. He was admitted to [facility] for overdose of pills. He had same symptoms as stated above. He had his first episode around in his early twenties. He has had 10-12 such episode since then and has been admitted to different hospitals. He has been to [facility], and [facility]. He admits to 6 suicidal attempts by overdose of pills. The patient noted that he never took medications after discharge or went for out-pt treatment. Past Psychiatric History: As stated above. Past Medication History: Xanax, Ativan, Lexapro. Adderall. Leading questions: The patient admitted to Depression and Anxiety. Admitted to SI. Denied HI. Admits to hearing multiple voices telling him to kill himself. Denied delusional thinking. Drugs and alcohol history: Alcohol and Marijuana. He has been rehab. 1-2 times. He has had blackouts. He denied withdrawal seizures or DTs Tobacco use: One pack a day. Past Medical history: Brugada syndrome. He has a pace maker. Family History of Psychiatric Disorder: The patient does not know. The patient denied. Social History and Family History: The patient was born in [place], [place] and raised in five different places. He grew- up with 2 siblings. He finished GED. His longest job was for 4 years at [employer]. OTC: Ibuprofen Allergies: None as per patient. Objective: MSE: Alert and attentive. Orientation times three Dressed and Groomed: Appropriately. Pleasant and cooperative. Psychomotor Activity: Normal. Speech: Normal in tone, quality, and quantity. Mood: Depressed and anxious. Affect: Consistent with mood. SI or HI: None. Perceptual disturbance: The patient notes hearing voices telling him to kill himself. Thought Content: No paranoia or other delusional thinking noted. Thought Process: Normal. Cognition: Intact Judgment and Insight: Poor. AIMS: Normal Labs: Available labs reviewed. Diagnosis: Major depressive disorder severe, recurrent. Alcohol and Marijuana abuse. Cocaine abuse Plan and Recommendations: Continue current Medications. Add Zoloft 50 mg po daily, Vistaril 25 mg po q6hr prn for anxiety Monitor MS and side effects of medications and adjust medications accordingly. Provide supportive psychotherapy and psychoeducation. The patient provided psychoeducation. Te patient provided with substance abuse counselling and advised to attend AA/NA Smoke cessation therapy. The patient to attend [facility]. CMP, TSH, Lipid Profile, HbA1c. Medication Consent with explanation of risk/benefits and side effects obtained. 03/10/2024 Interim History: The patient was discharged on . After discharge, the patient went to live with his friend as planned. The patient some issues with friend the same day and decided to go a different friend. As per patient he t ook, he took the gun out of his safe and was sitting with it for 25 minutes pointing to his head but hen he safely returned it his friend. He was smoking Marijuana and doing Cocaine. He experienced some discomfort, palpitation, and pain in the chest so he came to the hospital. He was seen by the ER staff and the social work. He revealed what happened and expressed suicidal thoughts and hearing voices family voices. This led to his readmission to the [facility] yesterday. He is currently taking Zoloft 75 mg po daily. MSE: Alert and attentive. Orientation times three Dressed and Groomed: Appropriately. Pleasant and cooperative. Psychomotor Activity: Normal. Speech: Normal in tone, quality, and quantity. Mood: Depressed and anxious. Affect: Consistent with mood. SI or HI: None. Perceptual disturbance: The patient notes hearing voices telling him to kill himself. Thought Content: No paranoia or other delusional thinking noted. Thought Process: Normal. Cognition: Intact Judgment and Insight: Poor. AIMS: Normal Labs: Available labs reviewed. Diagnosis: Major depressive disorder severe, recurrent. Alcohol and Marijuana abuse. Cocaine abuse Plan and Recommendations: Continue current Medications. Add Vistaril 25 mg po q6hr prn for anxiety. Monitor MS and side effects of medications and adjust medications accordingly. Provide supportive psychotherapy and psychoeducation. The patient provided psychoeducation. Te patient provided with substance abuse counselling and advised to attend AA/NA Smoke cessation therapy. The patient to attend [facility]. Medication Consent with explanation of risk/benefits and side effects obtained
[2024-03-11] MEDS: ACETAMINOPHEN TAB 325 MG TAB PO PRN (08:40)
[2024-03-11] MEDS: haloperidoL 5 MG TAB PO PRN (12:21)
--- NOTE | 2024-03-11 13:50 | P.PN ---
Progress Note - Text Progress Note Date: 03/11/24 Follow-up Mediation Review Chief Complaint: I am never going to be the same". Subjective: The patient reported hearing voices of his girlfriend telling him to kill himself, feels people are watching him, unable to concentrate, and lethargic. The patient is depressed over his situation. He has no one to support him. His family lives in [place]. The patient continues to feel depressed. He is exhibiting symptoms of psychosis. Explained that this could be drug induced psychosis and will subside. If it continues then an antipsychotic will be initiated. Zoloft to be increased to 100 mg. The patient consented. He has been compliant with medications. he reported no side effects from medications. The patient has been attending the groups. The participation is adequate. The interaction with staff and peers is good. The patient is compliant with treatment recommendations. Leading questions: The patient admitted to Depression and Anxiety. Denied SI or HI. Admitted to hearing voices of his girlfriend and believes that people are watching him. Sleep and Appetite: Fair. Change in family/ living/job/financial/daily routine: Homeless. Change in medical condition: No change. Change in medications: No change. Side effects from Medications: None. Allergies: No change. Objective- MSE: Alert and attentive. Orientation times three. Dressed and Groomed: Appropriately. Pleasant and cooperative. Psychomotor Activity: Normal. Speech: Normal in tone, quality, and quantity. Mood: Anxious. Affect: Appropriate to the mood. SI or HI: None. Perceptual disturbance: The patient hears his girlfriends voice. Thought Content: Mild paranoia or other delusional thinking noted. Thought Process: Normal. Cognition: Intact Judgment and Insight: Poor. AIMS: Normal. Labs: No new labs. Diagnosis: No change. Plan and Recommendations: Continue current Medications. Monitor MS and side effects of medications and adjust medications accordingly. Provide supportive psychotherapy. The patient provided psychoeducation and advised The patient provided Substance abuse counseling. Smoke cessation therapy. The patient to attend [facility] activities. Medication Consent with explanation of risk/benefits and side effects: Explained and obtained.
[2024-03-12] MEDS: SYMBICORT 160-4.5 MCG INHALER INHALATION STA (05:19)
[2024-03-12] MEDS: SERTRALINE 100 MG TAB PO SCH (08:15)
--- NOTE | 2024-03-12 16:22 | P.PN ---
Progress Note - Text Progress Note Date: 03/12/24 Follow-up Mediation Review Chief Complaint: I am feeling good today. Subjective: The patient noted that he is feeling pretty good today. He talked his old boss Paramjit Miller about job. He was accepted. He plans to join this job at [employer]. [place] He also talked to his mother, who wants him back. The patient stated that he plans to go back to [employer]. He is not hearing voices anymore because he has resolved his issues with his girlfriend. He feels much better. The social media content manager to talk to the mother and arrange follow-up treatment in [employer]. The patient consented. He has been compliant with medications. He reported no side effects from medications. The patient is irregular in attending the groups. The participation is limited. The interaction with staff and peers is good. The patient is compliant with treatment recommendations. Leading questions: The patient admitted to Depression and Anxiety. Denied SI or HI. Denied symptoms consistent with psychosis. Sleep and Appetite: Fair. Change in family/ living/job/financial/daily routine: The patient plans to go to [place] and live with her. Change in medical condition: No change. Change in medications: No change. Side effects from Medications: None. Allergies: No change. Objective- MSE: Alert and attentive. Orientation times three. Dressed and Groomed: Appropriately. Pleasant and cooperative. Psychomotor Activity: Normal. Speech: Normal in tone, quality, and quantity. Mood: Anxious. Affect: Appropriate to the mood. SI or HI: None. Perceptual disturbance: None. Thought Content: Normal. Thought Process: Normal. Cognition: Intact Judgment and Insight: Fair. AIMS: Normal. Labs: No new labs. Diagnosis: No change. Plan and Recommendations: Continue current Medications. Monitor MS and side effects of medications and adjust medications accordingly. Provide supportive psychotherapy. The patient provided psychoeducation and advised The patient provided Substance abuse counseling. Smoke cessation therapy. The patient to attend [facility] activities. Medication Consent with explanation of risk/benefits and side effects: Explained and obtained.
[2024-03-12] MEDS: LORATADINE 10 MG TAB PO PRN (18:08)
--- NOTE | 2024-03-13 15:55 | P.PN ---
Progress Note - Text Subjective: Doing "good." Denies withdrawals, SI, HI, AVH, med side effects MSE: Alert and attentive. Orientation times three. Dressed and Groomed: Appropriately. Pleasant and cooperative. Psychomotor Activity: Normal. Speech: Normal in tone, quality, and quantity. Mood: Anxious. Affect: Appropriate to the mood. SI or HI: None. Perceptual disturbance: None. Thought Content: Normal. Thought Process: Normal. Cognition: Intact Judgment and Insight: Fair. AIMS: Normal. Diagnosis: No change. Plan and Recommendations: no change
[2024-03-13] MEDS: guaiFENesin-DM 100-10MG/5ML 10 ML CUP PO PRN (20:25)
--- NOTE | 2024-03-14 14:18 | P.PN ---
Progress Note - Text Interval history: At this time patient denies any withdrawals, suicidal or homicidal ideations intent or plan. Denies any Auditory or visual hallucinations. Patient denies any side effects from the medications and has been compliant with meds. Mental status exam: General Appearance: [Patient appears to be stated age is alert, directable, and cooperative.] Behavior: [No agitated behavior. Patient is calm and directable] Speech: Patient's speech is fluent and nonpressured. Mood/Affect: Mood is thymic, affect is congruent and constricted. Suicidality/Homicidality: Patient denies having any suicidal or homicidal ideation intent or plan. Perceptions: Patient denies any auditory or visual hallucinations. Though content/process: [There is no evidence of any delusional thought content and thought process is linear and goal-directed.] Memory and concentration: AOX3, grossly intact for the purposes of this session Judgment and insight: improving mildly Assessment/Plan: Continue with current diagnosis. Patient continues to meet criteria for inpatient psychiatric admission for symptom stabilization and safety.[Patient will be maintained on current psychotropic medication regimen.] Monitor for medication compliance and for any psychotropic medication side effects. Will continue to monitor ongoing response to treatment. Encouraged participation in milieu.
[2024-03-16 07:13] VITALS: BP 106/68; PULSE 47; RESP 16; TEMP 98.7
--- NOTE | 2024-03-16 13:14 | P.PN ---
Progress Note - Text Progress Note Date: 03/16/24 Follow-up Mediation Review Chief Complaint: I have been doing good. Subjective: The patient noted that he is feeling pretty good today. His weekend was fine and uneventful. He still plans to go to his mother after discharge. Talked to patients mother and she confirmed that Chritopher in coming to live with her. Overall, patient is nicely stabilizing. He has been compliant with medications. he reported no side effects from medications. The patient is irregular in attending the groups. The participation is limited. The interaction with staff and peers is good. The patient is compliant with treatment recommendations. Leading questions: The patient admitted to Depression and Anxiety. Denied SI or HI. Denied symptoms consistent with psychosis. Sleep and Appetite: Fair. Change in family/ living/job/financial/daily routine: The patient plans to go to [place] and live with her. Change in medical condition: No change. Change in medications: No change. Side effects from Medications: None. Allergies: No change. Objective- MSE: Alert and attentive. Orientation times three. Dressed and Groomed: Appropriately. Pleasant and cooperative. Psychomotor Activity: Normal. Speech: Normal in tone, quality, and quantity. Mood: Anxious. Affect: Appropriate to the mood. SI or HI: None. Perceptual disturbance: None. Thought Content: Normal. Thought Process: Normal. Cognition: Intact Judgment and Insight: Fair. AIMS: Normal. Labs: No new labs. Diagnosis: No change. Plan and Recommendations: Continue current Medications. Monitor MS and side effects of medications and adjust medications accordingly. Provide supportive psychotherapy. The patient provided psychoeducation and advised The patient provided Substance abuse counseling. Smoke cessation therapy. The patient to attend [facility] activities. Medication Consent with explanation of risk/benefits and side effects: Explained and obtained.
== END 2024-03-16 13:47 | disposition home or self-care (01) | DRG 885 ==
LOC: EC 06:05 → 3MHU 15:47
PROVIDERS: ADMIT Psychiatry & Neurology Psychiatry; ATTEND Psychiatry & Neurology Psychiatry
DX: F33.2 Major depressive disorder, recurrent severe without psychotic features (principal); R45.851 Suicidal ideations; Z59.00 Homelessness unspecified; I49.8 Other specified cardiac arrhythmias; F14.10 Cocaine abuse, uncomplicated; F10.10 Alcohol abuse, uncomplicated; F12.10 Cannabis abuse, uncomplicated; F41.9 Anxiety disorder, unspecified; B19.20 Unspecified viral hepatitis C without hepatic coma; Z11.52 Encounter for screening for COVID-19; F17.210 Nicotine dependence, cigarettes, uncomplicated; Z71.6 Tobacco abuse counseling; Z56.0 Unemployment, unspecified; Z91.51 Personal history of suicidal behavior; Z95.810 Presence of automatic (implantable) cardiac defibrillator; Z59.12 Inadequate housing utilities; Z59.41 Food insecurity; Z59.82 Transportation insecurity; Z63.8 Other specified problems related to primary support group; Z71.41 Alcohol abuse counseling and surveillance of alcoholic; Z71.51 Drug abuse counseling and surveillance of drug abuser; Z88.6 Allergy status to analgesic agent
CPT/HCPCS: 36415; 71046; 80053; 80306; 81003; 82075; 83735; 84484; 85025; 85610; 85730; 87635; 93005; 99285